=== PATIENT | male | born 1980 | race Two or more races ===

== ENCOUNTER 2017-02-27 10:45 | Inpatient (IN) | payer OTHER ==
[2017-02-27 13:44] VITALS: BMI 23.3
--- NOTE | 2017-02-27 14:37 | HP ---
COWS - Scale Resting Pulse: 0= MS 80 or Below Sweatin= Chills/Flushing Restless Observation: 1= Difficult to Sit Still Pupil Size: 0= Normal to Room Light Bone or Joint Aches: 2= Severe Diffuse Aches Runny Nose/ Eye Tearin= Nasal Congestion GI Upset > 30mins: 3= Vomiting/Diarrhea Tremor Observation: 0= None Yawning Observation: 2= >3x During Session Anxiety or Irritability: 2=Irritable/Anxious Goose Flesh Skin: 3=Piloerection COWS Score: 15 Admission ROS S - HPI Chief Complaint: "I want to change my life and be a normal person." Pt. is here to Detox from Heroin. Allergies/Adverse Reactions: Allergies Allergy/AdvReac Type Severity Reaction Status Date / Time Fish Containing Products Allergy Severe Hives Verified 02/27/17 14:02 NKDA Allergy Uncoded 02/27/17 14:02 History of Present Illness: Pt. is a 37 YO male here to Detox from Heroin. Patient has had several previous Detox admissions at [facility], last one 09/2015. Patient had a Detox admission at [facility]) in 09/2016. Longest recent period of non-drug use: approx. 2 years (2013 - 2014). Exam Limitations: No Limitations - Ebola screening Have you traveled outside of the country in the last 21 days: No Have you had contact with anyone from an Ebola affected area: No Have you been sick,other than usual withdrawal symptoms: No Do you have a fever: No - Review of Systems Constitutional: Chills, Diaphoresis, Fever, Loss of Appetite, Malaise, Night Sweats, Changes in sleep, Unintentional Wgt. Loss (Lost approx. 22 lbs. over the last 2 months.) EENT: reports: Nose Congestion, Sinus Pressure Respiratory: reports: No Symptoms reported Cardiac: reports: Palpitations GI: reports: Constipated, Nausea, Poor Appetite, Vomiting, Indigestion, Abdominal cramping Musculoskeletal: reports: No Symptoms Reported Integumentary: reports: No Symptoms Reported Neuro: reports: No Symptoms reported Endocrine: reports: No Symptoms Reported Hematology: reports: No Symptoms Reported Psychiatric: reports: Judgement Intact, Mood/Affect Appropiate, Orientated x3, Anxious, Depressed Other Systems: Reviewed and Negative Patient History - Patient Medical History Hx Anemia: No Hx Asthma: No Hx Chronic Obstructive Pulmonary Disease (COPD): No Hx Cancer: No Hx Cardiac Disorders: No Hx Congestive Heart Failure: No Hx Hypertension: No Hx Hypercholesterolemia: No Hx Pacemaker: No HX Cerebrovascular Accident: No Hx Seizures: No Hx Dementia: No Hx Diabetes: No Hx Gastrointestinal Disorders: No Hx Liver Disease: Yes (Hep C; Diagnosed 2008; No Treatment yet.) Hx Genitourinary Disorders: No Hx Sexually Transmitted Disorders: No Hx Renal Disease (ESRD): No Hx Thyroid Disease: No Hx Human Immunodeficiency Virus (HIV): No (Last Tested approx. 2 months ago: NEGATIVE.) Hx Hepatitis C: Yes (Diagnosed 2008; No Treatment yet.) Hx Depression: Yes (No treatment.) Hx Suicide Attempt: No (PATIENT DENIES CURRENT SI / HI.) Hx Bipolar Disorder: No Hx Schizophrenia: No Other Medical History: DENIES. - Patient Surgical History Past Surgical History: No Hx Neurologic Surgery: No Hx Cataract Extraction: No Hx Cardiac Surgery: No Hx Lung Surgery: No Hx Breast Surgery: No Hx Breast Biopsy: No Hx Abdominal Surgery: No Hx Appendectomy: No Hx Cholecystectomy: No Hx Genitourinary Surgery: No Hx Section: No Hx Orthopedic Surgery: No Anesthesia Reaction: Yes - PPD History Previous Implant?: Yes Documented Results: Negative w/proof Implanted On Prior [facility] Admission?: Yes Date: 09/30/15 Results: 0 mm PPD to be Administered?: Yes - Reproductive History Patient is a Female of Child Bearing Age (11 -55 yrs old): No (PATIENT IS MALE.) - Smoking Cessation Smoking history: Current every day smoker Have you smoked in the past 12 months: Yes Aproximately how many cigarettes per day: 5 Cigars Per Day: 0 Hx Chewing Tobacco Use: No Initiated information on smoking cessation: Yes 'Breaking Loose' booklet given: 02/27/17 (GIVEN ON UNIT.) - Substance & Tx. History Hx Alcohol Use: No Hx Substance Use: Yes Substance Use Type: Cocaine, Heroin Hx Substance Use Treatment: Yes (Previous Detox admissions at [facility]. Detox at [facility] ([place], [place]) 10/2016.) - Substances Abused Heroin Route: Injection Frequency: Daily Amount used: 8 bags Age of first use: 15 Date of Last Use: 02/27/17 Cocaine Route: Injection Frequency: Daily Amount used: $100 Age of first use: 15 Date of Last Use: 02/27/17 Family Disease History - Family Disease History Family History: Denies Admission Physical Exam [facility] - Vital Signs Vital Signs: Vital Signs - 24 hr 02/27/17 13:43 Temperature 96.2 F L Pulse Rate 73 Respiratory 20 Rate Blood Pressure 147/91 - Physical General Appearance: Yes: No Apparent Distress, Nourished, Appropriately Dressed HEENTM: Yes: Hearing grossly Normal, Normocephalic, Normal Voice, ANTHONY, Pharynx Normal Respiratory: Yes: Chest Non-Tender, Lungs Clear, No Respiratory Distress, No Accessory Muscle Use Neck: Yes: No masses,lesions,Nodules, Supple, Trachea in good position Breast: Yes: Breast Exam Deferred Cardiology: Yes: Regular Rhythm, Regular Rate, S1, S2 Abdominal: Yes: Normal Bowel Sounds, Non Tender, Flat, Soft Genitourinary: Yes: Within Normal Limits Back: Yes: Normal Inspection Musculoskeletal: Yes: full range of Motion, Gait Steady Extremities: Yes: Normal Range of Motion Neurological: Yes: Fully Oriented, Alert, Normal Mood/Affect, Normal Response Integumentary: Yes: Normal Color, Dry, Warm, Track [place] (Noted on Bilateral Forearms and Right Hand; Swelling noted at sites on Right forearm and Hand.) Lymphatic: Yes: Within Normal Limits - Diagnostic (1) Hepatitis C Current Visit: Yes Status: Chronic Qualifiers: Viral hepatitis chronicity: unspecified Hepatic coma status: without hepatic coma Qualified Code(s): B19.20 - Unspecified viral hepatitis C without hepatic coma; B19.20 - Unspecified viral hepatitis C without hepatic coma (2) Nicotine dependence Current Visit: Yes Status: Chronic Qualifiers: Nicotine product type: cigarettes Substance use status: uncomplicated Qualified Code(s): F17.210 - Nicotine dependence, cigarettes, uncomplicated; F17.210 - Nicotine dependence, cigarettes, uncomplicated (3) Opioid dependence with withdrawal Current Visit: Yes Status: Acute (4) Abscess of right upper extremity Current Visit: Yes Status: Acute (5) Cocaine dependence, uncomplicated Current Visit: Yes Status: Acute Cleared for Admission [facility] - Detox or Rehab [facility] Level of Care: Medically Managed Detox Regimen/Protocol: Methadone [facility] Breath Alcohol Content Breath Alcohol Content: 0 Urine Drug Screen - Results Drug Screen Negative: No Urine Drug Screen Results: CECY-Cocaine, OPI-Opiates
[2017-02-27] MEDS ORDERED: ACETAMINOPHEN 325 MG TABLET (FP) PO PRN (15:11)
[2017-02-27] MEDS ORDERED: guaiFENesin/D-METHORPHAN HB 10 ML UNIT-DOSE CUPS PO PRN (15:11)
[2017-02-27] MEDS ORDERED: LOPERAMIDE HCL 2 MG CAPSULE PO PRN (15:11)
[2017-02-27] MEDS ORDERED: MAGNESIUM HYDROX 2400MG/30ML ORAL SUSPENSION 30 ML CUP PO PRN (15:11)
[2017-02-27] MEDS ORDERED: MAG HYDROX/AL HYDROX/SIMETH 30 ML UNIT-DOSE CUP PO PRN (15:11)
[2017-02-27] MEDS ORDERED: P-EPHED 60MG/TRIPROLIDI 2.5MG TABLET PO PRN (15:11)
[2017-02-27] MEDS ORDERED: hydrOXYzine PAMOATE 50 MG CAPSULE (FP) PO PRN (15:11)
[2017-02-27] MEDS ORDERED: METHADONE HCL 10 MG TABLET (FOR DETOX USE ONLY) PO ONE ×2 (15:11→23:00)
[2017-02-27] MEDS ORDERED: NICOTINE POLACRILEX 2 MG GUM BC PRN (15:11)
[2017-02-27] MEDS ORDERED: IBUPROFEN 400 MG TABLET (FP) PO PRN (15:11)
[2017-02-27] MEDS ORDERED: MAGNESIUM CITRATE 300 ML BOTTLE PO PRN (15:11)
[2017-02-27 16:51] LABS: MCH 29.6 pg (25.7-33.7); MCHC 33.9 g/dl (32.0-35.9); MEAN CELL VOLUME 87.2 fl (80-96); MEAN PLT VOLUME 7.8 fl (7.5-11.1); PLATELET COUNT 276 K/MM3 (134-434)
[2017-02-27 17:00] LABS: ALBUMIN 3.2 g/dl (3.4-5.0); ANION GAP 9 (8-16); CALCIUM 8.4 mg/dL (8.5-10.1); CO2 29 mmol/L (21-32); CREATININE 0.6 mg/dL (0.7-1.3); GLUCOSE,RANDOM 84 mg/dL (74-106); SGOT/AST 46 U/L (15-37); SGPT/ALT 42 U/L (12-78)
[2017-02-27 17:03] LABS: ALK PHOS 114 U/L (45-117); BILIRUBIN,TOTAL 0.5 mg/dL (0.2-1.0); TOT PROT 7.6 g/dl (6.4-8.2)
[2017-02-27] MEDS ORDERED: METHADONE HCL 10 MG TABLET (FOR DETOX USE ONLY) ONE (17:34)
[2017-02-27] MEDS: diazePAM 5 MG TABLET PO PRN ×2 (17:45→22:19)
[2017-02-27] MEDS: NICOTINE 14 MG/24 HOURS TOPICAL PATCH TD SCH (17:49)
[2017-02-27 21:01] LABS: URINE APPEARANCE CLEAR; URINE BILIRUBIN NEGATIVE (NEGATIVE); URINE BLOOD NEGATIVE (NEGATIVE); URINE COLOR YELLOW; URINE GLUCOSE (UA) NEGATIVE (NEGATIVE); URINE KETONE NEGATIVE (NEGATIVE); URINE LEUK ESTERASE NEGATIVE (NEGATIVE); URINE NITRITE NEGATIVE (NEGATIVE); URINE PROTEIN NEGATIVE (NEGATIVE); URINE UROBILINOGEN NEGATIVE mg/dL (0.2-1.0)
[2017-02-27] MEDS: SULFAMETHOXAZOLE/TRIMETHOPRIM 800MG/160MG D.S. TABLET PO SCH (22:20)
[2017-02-27] MEDS: BACITRACIN 0.9 GM PACKET TP SCH (22:20)
[2017-02-27] MEDS: THIAMINE HCL 100 MG TABLET (FP) PO SCH (22:20)
[2017-02-27] MEDS: diphenhydrAMINE HCL 50 MG CAPSULE PO PRN (22:20)
[2017-02-28] MEDS: diazePAM 5 MG TABLET PO PRN ×4 (05:50→22:15)
[2017-02-28] MEDS: SULFAMETHOXAZOLE/TRIMETHOPRIM 800MG/160MG D.S. TABLET PO SCH ×2 (09:23→22:14)
[2017-02-28] MEDS: BACITRACIN 0.9 GM PACKET TP SCH ×2 (09:23→22:14)
[2017-02-28] MEDS: NICOTINE 14 MG/24 HOURS TOPICAL PATCH TD SCH (09:24)
[2017-02-28] MEDS ORDERED: METHADONE HCL 10 MG TABLET (FOR DETOX USE ONLY) PO ONE (10:00)
[2017-02-28] MEDS ORDERED: PRENATAL VITAMINS W/ FOLIC ACID TABLET (FP) PO SCH (10:00)
[2017-02-28] MEDS ORDERED: FLU VACCINE QUAD 60 MCG/0.5 ML (MDV 17-18) IM ONE (12:00)
--- NOTE | 2017-02-28 12:03 | PN ---
[facility] CIWA - CIWA Score Nausea/Vomitin-No Nausea/No Vomiting Muscle Tremors: None Anxiety: 3 Agitation: 2 Paroxysmal Sweats: 4-Forehead w/Sweat Beads Orientation: 0-Oriented Tacttile Disturbances: 2-Mild Itch/Numbness/Burn Auditory Disturbances: 2-Mild Harshness/Frighten Visual Disturbances: 3-Moderate Sensitivity Headache: 0-None Present CIWA-Ar Total Score: 16 BHS Progress Note (SOAP) Subjective: Interrupted sleep, Stomach Cramping, Body Aches, Sweating. Objective: PT. A & O X 3, OBSERVED AMBULATING ON UNIT. NO ACUTE DISTRESS. PT. DENIES CHEST PAIN. 02/28/17 12:02 Vital Signs Temperature 97.6 F 02/28/17 09:18 Pulse Rate 102 H 02/28/17 09:18 Respiratory Rate 20 02/28/17 09:18 Blood Pressure 135/86 02/28/17 09:18 O2 Sat by Pulse Oximetry (%) Laboratory Tests 02/27/17 02/27/17 02/27/17 15:00 15:00 15:00 WBC 5.0 RBC 4.38 Hgb 12.9 Hct 38.1 MCV 87.2 MCH 29.6 MCHC 33.9 RDW 13.0 Plt Count 276 MPV 7.8 Sodium 135 L Potassium 4.2 Chloride 97 L Carbon Dioxide 29 Anion Gap 9 BUN 12 D Creatinine 0.6 L D Creat Clearance w eGFR > 60 Random Glucose 84 D Calcium 8.4 L Total Bilirubin 0.5 D AST 46 H D ALT 42 D Alkaline Phosphatase 114 D Total Protein 7.6 Albumin 3.2 L Urine Color Urine Appearance Urine pH Ur Specific [place] Urine Protein Urine Glucose (UA) Urine Ketones Urine Blood Urine Nitrite Urine Bilirubin Urine Urobilinogen RPR Titer Nonreactive 02/27/17 18:38 WBC RBC Hgb Hct MCV MCH MCHC RDW Plt Count MPV Sodium Potassium Chloride Carbon Dioxide Anion Gap BUN Creatinine Creat Clearance w eGFR Random Glucose Calcium Total Bilirubin AST ALT Alkaline Phosphatase Total Protein Albumin Urine Color Yellow Urine Appearance Clear Urine pH 5.0 Ur Specific [place] 1.025 Urine Protein Negative Urine Glucose (UA) Negative Urine Ketones Negative Urine Blood Negative Urine Nitrite Negative Urine Bilirubin Negative Urine Urobilinogen Negative RPR Titer LABS NOTED. Assessment: 02/28/17 12:02 WITHDRAWAL SYMPTOMS. Plan: CONTINUE DETOX. INCREASE DAILY PO FLUID INTAKE.
--- NOTE | 2017-02-28 14:24 | EKG ---
Test Reason : Blood Pressure : / mmHG Vent. Rate : 068 BPM Atrial Rate : 068 BPM P-R Int : 148 ms QRS Dur : 084 ms QT Int : 380 ms P-R-T Axes : 068 023 032 degrees QTc Int : 404 ms NORMAL SINUS RHYTHM WITH SINUS ARRHYTHMIA EARLY REPOLARIZATION NORMAL ECG NO PREVIOUS ECGS AVAILABLE Confirmed by JONATHAN CHRISTIANSON, ROXY ([id number]) on 02/28/2017 2:24:07 PM Referred By: Confirmed By:ROXY CASTILLO MD
[2017-02-28] MEDS: diphenhydrAMINE HCL 50 MG CAPSULE PO PRN (22:15)
[2017-02-28] MEDS: THIAMINE HCL 100 MG TABLET (FP) PO SCH (22:15)
[2017-03-01 06:57] VITALS: BP 134/93; PULSE 70; TEMP 97.3
[2017-03-01] MEDS ORDERED: METHADONE HCL 5 MG TABLET (FOR DETOX USE ONLY) PO ONE (10:00)
--- NOTE | 2017-03-01 11:54 | DS ---
[facility] Detox Discharge Summary Admission Date: 02/27/17 Discharge Date: 03/01/17 - History Present History: Cocaine Dependence, Opioid Dependence Additional Comments: PATIENT DOES NOT WISH TO STAY TO COMPLETE DETOX REGIMEN. RISKS OF NOT COMPLETING DETOX PROTOCOL EXPLAINED TO PATIENT. PATIENT ADVISED TO GO IMMEDIATELY TO NEAREST ER SHOULD ANY INTOLERABLE DETOX SYMPTOMS DEVELOP AT ANY TIME. PATIENT LEFT UNIT IN STABLE MEDICAL CONDITION. Pertinent Past History: Hep C, Nicotine dependence, Depression, Abscess of Right Upper Extremity. - Physical Exam Results Vital Signs: Vital Signs Temperature 97.3 F L 03/01/17 06:56 Pulse Rate 70 03/01/17 06:56 Respiratory Rate 18 03/01/17 06:56 Blood Pressure 134/93 03/01/17 06:56 O2 Sat by Pulse Oximetry (%) Pertinent Admission Physical Exam Findings: WITHDRAWAL SYMPTOMS. Laboratory Tests 02/27/17 02/27/17 02/27/17 15:00 15:00 15:00 WBC 5.0 RBC 4.38 Hgb 12.9 Hct 38.1 MCV 87.2 MCH 29.6 MCHC 33.9 RDW 13.0 Plt Count 276 MPV 7.8 Sodium 135 L Potassium 4.2 Chloride 97 L Carbon Dioxide 29 Anion Gap 9 BUN 12 D Creatinine 0.6 L D Creat Clearance w eGFR > 60 Random Glucose 84 D Calcium 8.4 L Total Bilirubin 0.5 D AST 46 H D ALT 42 D Alkaline Phosphatase 114 D Total Protein 7.6 Albumin 3.2 L Urine Color Urine Appearance Urine pH Ur Specific [place] Urine Protein Urine Glucose (UA) Urine Ketones Urine Blood Urine Nitrite Urine Bilirubin Urine Urobilinogen RPR Titer Nonreactive 02/27/17 18:38 WBC RBC Hgb Hct MCV MCH MCHC RDW Plt Count MPV Sodium Potassium Chloride Carbon Dioxide Anion Gap BUN Creatinine Creat Clearance w eGFR Random Glucose Calcium Total Bilirubin AST ALT Alkaline Phosphatase Total Protein Albumin Urine Color Yellow Urine Appearance Clear Urine pH 5.0 Ur Specific [place] 1.025 Urine Protein Negative Urine Glucose (UA) Negative Urine Ketones Negative Urine Blood Negative Urine Nitrite Negative Urine Bilirubin Negative Urine Urobilinogen Negative RPR Titer LABS NOTED. - Treatment Hospital Course: Detoxed Safely - Medication Discharge Medications: Ambulatory Orders Sulfamethoxazole/Trimethoprim [Bactrim Ds -] 1 tab PO BID #20 tablet 03/01/17 - Diagnosis (1) Hepatitis C Status: Chronic Qualifiers: Viral hepatitis chronicity: chronic Hepatic coma status: without hepatic coma Qualified Code(s): B18.2 - Chronic viral hepatitis C; B18.2 - Chronic viral hepatitis C; B18.2 - Chronic viral hepatitis C; B18.2 - Chronic viral hepatitis C (2) Nicotine dependence Status: Chronic Qualifiers: Nicotine product type: cigarettes Substance use status: uncomplicated Qualified Code(s): F17.210 - Nicotine dependence, cigarettes, uncomplicated; F17.210 - Nicotine dependence, cigarettes, uncomplicated (3) Opioid dependence with withdrawal Status: Acute (4) Abscess of right upper extremity Status: Acute (5) Cocaine dependence, uncomplicated Status: Acute - AMA Did Patient Leave Against Medical Advice: Yes (PATIENT DID NOT WISH TO STAY TO COMPLETE DETOX REGIMEN.)
[2017-03-02] MEDS ORDERED: METHADONE HCL 5 MG TABLET (FOR DETOX USE ONLY) PO ONE (10:00)
[2017-03-03] MEDS ORDERED: METHADONE HCL 10 MG TABLET (FOR DETOX USE ONLY) PO ONE (10:00)
[2017-03-04] MEDS ORDERED: METHADONE HCL 5 MG TABLET (FOR DETOX USE ONLY) PO ONE (06:00)
== END 2017-03-01 09:14 | disposition left against medical advice (07) | DRG 894 ==
LOC: YASAS 10:45 → Y3N 16:56
PROVIDERS: ADMIT Internal Medicine; ATTEND Internal Medicine
PROC: HZ2ZZZZ Detoxification Services for Substance Abuse Treatment (ICD-10-PCS; principal; 2017-02-27)
DX: F11.23 Opioid dependence with withdrawal (principal); F14.20 Cocaine dependence, uncomplicated; L02.413 Cutaneous abscess of right upper limb; F17.213 Nicotine dependence, cigarettes, with withdrawal; B18.2 Chronic viral hepatitis C; Z91.013 Allergy to seafood
CPT/HCPCS: 36415; 80053; 81003; 85027; 86593; 90688; 93005; 93010

== ENCOUNTER 2018-12-17 13:59 | Inpatient (IN) | payer OTHER | END 2018-12-22 09:13 | disposition home or self-care (01) | LOC: YASAS 13:59 → Y3N 21:29 ==

== ENCOUNTER 2019-03-27 16:59 | Inpatient (IN) | payer OTHER ==
[2019-03-27 18:36] VITALS: BMI 23.2
--- NOTE | 2019-03-27 20:26 | HP ---
COWS - Scale Resting Pulse: 1= [place] 81-100 Sweatin= Chills/Flushing Restless Observation: 1= Difficult to Sit Still Pupil Size: 0= Normal to Room Light Bone or Joint Aches: 4=Acute Joint/Muscle Pain Runny Nose/ Eye Tearin= Nasal Congestion GI Upset > 30mins: 0= None Tremor Observation: 0= None Yawning Observation: 1= 1-2x During Session Anxiety or Irritability: 2=Irritable/Anxious Goose Flesh Skin: 0=Smooth Skin COWS Score: 11 CIWA Score Nausea/Vomitin-No Nausea/No Vomiting Muscle Tremors: None Anxiety: 4-Mod. Anxious/Guarded Agitation: 1-Slight > Activity Paroxysmal Sweats: 3 Orientation: 1-Uncertain about Date Tacttile Disturbances: 0-None Auditory Disturbances: 0-None Visual Disturbances: 0-None Headache: 0-None Present CIWA-Ar Total Score: 9 - Admission Criteria [facility] Guidelines: Admission for Medically Managed Detox: Requires at least one of the followin. CIWA greater than 12 2. Seizures within the past 24 hours 3. Delirium tremens within the past 24 hours 4. Hallucinations within the past 24 hours 5. Acute intervention needed for co occurring medical disorder 6. Acute intervention needed for co occurring psychiatric disorder 7. Severe withdrawal that cannot be handled at a lower level of care (continued vomiting, continued diarrhea, abnormal vital signs) requiring intravenous medication and/or fluids 8. Patient presents the following: Acute intervention needed for co-occurring med or psych disorder Admission Criteria Met: Admission criteria met Admitting History and Physical - Smoking History Smoking history: Current every day smoker Have you smoked in the past 12 months: Yes Aproximately how many cigarettes per day: 10 - Alcohol/Substance Use Hx Alcohol Use: No Admission ROS [facility] Chief Complaint: C/O WITHDRAWAL SX'S Allergies/Adverse Reactions: Allergies Allergy/AdvReac Type Severity Reaction Status Date / Time Fish Containing Products Allergy Severe Hives Verified 03/27/19 17:53 NKDA Allergy Uncoded 12/17/18 17:48 History of Present Illness: HERE FOR DETOX. LAST ADMISSION 11/2018. SELF REFERRED. PRESENTS WITH C/O WORSENING WITHDRAWAL SX'S AND IS SEEKING DETOX FOR HIS ALCOHOL AND HEROIN DEPENDENCE. CLIENT REPORTS DAILY USE OF BOTH SUBSTANCES. LAST USED EARLY THIS MORNING. + EYE SECURITY COORDINATOR, IVDU. UTOX ALSO + FOR CECY. HE IS ALSO SEEKING USP REHAB AFTER DETOX. DENIES DRUG OVERDOSE, SEIZURE, BLACK OUTS, AVH. LIVES WITH FAMILY, DISABILITY, DENIES LEGALS Exam Limitations: No Limitations - Ebola screening Have you traveled outside of the country in the last 21 days: No (N) Have you had contact with anyone from an Ebola affected area: No Do you have a fever: No - Review of Systems Constitutional: Chills, Loss of Appetite, Malaise, Night Sweats, Changes in sleep EENT: reports: Nose Congestion Respiratory: reports: No Symptoms reported Cardiac: reports: No Symptoms Reported GI: reports: Poor Appetite, Poor Fluid Intake : reports: No Symptoms Reported Musculoskeletal: reports: No Symptoms Reported Integumentary: reports: Sweating Neuro: reports: No Symptoms reported Endocrine: reports: No Symptoms Reported Hematology: reports: No Symptoms Reported Psychiatric: reports: Agitated (IRRITBALE), Anxious Other Systems: Reviewed and Negative Patient History - Patient Medical History Hx Anemia: No Hx Asthma: No Hx Chronic Obstructive Pulmonary Disease (COPD): No Hx Cancer: No Hx Cardiac Disorders: No Hx Congestive Heart Failure: No Hx Hypertension: No Hx Hypercholesterolemia: No Hx Pacemaker: No HX Cerebrovascular Accident: No Hx Seizures: No Hx Dementia: No Hx Diabetes: No Hx Gastrointestinal Disorders: No Hx Liver Disease: Yes (Hep C; Diagnosed 2008; No Treatment yet.) Hx Genitourinary Disorders: No Hx Sexually Transmitted Disorders: No Hx Renal Disease (ESRD): No Hx Thyroid Disease: No Hx Human Immunodeficiency Virus (HIV): No Hx Hepatitis C: Yes (Diagnosed 2008; No Treatment yet.) Hx Depression: Yes (No treatment.) Hx Suicide Attempt: No (PATIENT DENIES CURRENT SI / HI.) Hx Bipolar Disorder: Yes Hx Schizophrenia: No Other Medical History: DENIES - Patient Surgical History Past Surgical History: No Hx Neurologic Surgery: No Hx Cataract Extraction: No Hx Cardiac Surgery: No Hx Lung Surgery: No Hx Breast Surgery: No Hx Breast Biopsy: No Hx Abdominal Surgery: No Hx Appendectomy: No Hx Cholecystectomy: No Hx Genitourinary Surgery: No Hx Section: No Hx Orthopedic Surgery: No Anesthesia Reaction: No - PPD History Previous Implant?: Yes Documented Results: Negative w/proof Implanted On Prior [facility] Admission?: Yes Date: 12/18/18 Results: NEG TB GOLD PPD to be Administered?: No - Smoking Cessation Smoking history: Current every day smoker Have you smoked in the past 12 months: Yes Aproximately how many cigarettes per day: 10 Cigars Per Day: 0 Hx Chewing Tobacco Use: No Initiated information on smoking cessation: Yes 'Breaking Loose' booklet given: 03/27/19 - Substance & Tx. History Hx Alcohol Use: Yes Hx Substance Use: Yes Substance Use Type: Alcohol, Cocaine, Heroin Hx Substance Use Treatment: Yes ([facility]) - Substances abused Heroin Substance route: Injection Frequency: Daily Amount used: 12 bags Age of first use: 15 Date of last use: 03/27/19 Cocaine Substance route: Injection Frequency: Daily Amount used: 12 bags Age of first use: 15 Date of last use: 03/27/19 K2/Spice Substance route: Smoking Frequency: Daily Amount used: 1 stick Age of first use: 38 Date of last use: 12/17/18 Alcohol Substance route: Oral Frequency: Daily Amount used: 2 CANS OF BEER AND 2 SHOTS OF VODKA Age of first use: 15 Date of last use: 03/27/19 Admission Physical Exam [facility] - Vital Signs Vital Signs: Vital Signs - 24 hr 03/27/19 17:58 Temperature 97.5 F L Pulse Rate 91 H Respiratory 16 Rate Blood Pressure 157/98 - Physical General Appearance: Yes: Mild Distress, Irritable, Sweating, Anxious HEENTM: Yes: EOMI, Normocephalic, Normal Voice, ANTHONY, Pharynx Normal, Nasal Congestion Respiratory: Yes: Chest Non-Tender, Lungs Clear, Normal Breath Sounds, No Respiratory Distress, No Accessory Muscle Use Neck: Yes: No masses,lesions,Nodules, Supple, Trachea in good position, Other ( TRACK WARE) Breast: Yes: Breasts Symetrical Cardiology: Yes: Regular Rhythm, Regular Rate, S1, S2 Abdominal: Yes: Non Tender, Soft, Increased Bowel Sounds Genitourinary: Yes: Within Normal Limits Back: Yes: Normal Inspection Musculoskeletal: Yes: full range of Motion, Gait Steady Extremities: Yes: Normal Capillary Refill, Normal Range of Motion, Non-Tender Neurological: Yes: Alert, Motor Strength 5/5, Depressed Affect Integumentary: Yes: Warm, Moist, Other (SOILED FINGERNAIL BEDS) Lymphatic: Yes: Within Normal Limits - Diagnostic (1) Opioid dependence with withdrawal Current Visit: No Status: Acute (2) Cocaine dependence, uncomplicated Current Visit: No Status: Chronic (3) Hepatitis C Current Visit: No Status: Chronic Qualifiers: Viral hepatitis chronicity: chronic Hepatic coma status: without hepatic coma Qualified Code(s): B18.2 - Chronic viral hepatitis C (4) History of bipolar disorder Current Visit: No Status: Chronic (5) Insomnia Current Visit: No Status: Chronic (6) Nicotine dependence Current Visit: No Status: Chronic Qualifiers: Nicotine product type: cigarettes Substance use status: uncomplicated Qualified Code(s): F17.210 - Nicotine dependence, cigarettes, uncomplicated (7) Substance induced mood disorder Current Visit: No Status: Suspected (8) At risk for dehydration due to poor fluid intake Current Visit: Yes Status: Acute (9) Constipation Current Visit: Yes Status: Acute Qualifiers: Constipation type: drug induced constipation Qualified Code(s): K59.03 - Drug induced constipation (10) IVDU (intravenous drug user) Current Visit: Yes Status: Acute (11) Track ware due to intravenous drug abuse Current Visit: Yes Status: Acute Cleared for Admission [facility] - Detox or Rehab [facility] Level of Care: Medically Managed Detox Regimen/Protocol: Methadone/Librium Claeared for Rehab Admission: No Breathalyzer - Breathalyzer Breathalyzer: 0 Urine Drug Screen - Test Device Lot number: [id number] Expiration date: 11/23/20 - Control Is test valid?: Yes - Results Drug screen NEGATIVE: No Urine drug screen results: CECY-Cocaine, FEN-Fentanyl, MOP-Opiates, OXY-Oxycodone Inpatient Rehab Admission - Rehab Decision to Admit Inpatient rehab admission?: No
[2019-03-27] MEDS ORDERED: DICYCLOMINE HCL 10 MG CAPSULE PO PRN (20:32)
[2019-03-27] MEDS ORDERED: BISMUTH SUBSALICYLATE 524 MG/30 ML UD PO PRN (20:32)
[2019-03-27] MEDS ORDERED: ACETAMINOPHEN 325 MG TABLET (FP) PO PRN ×2 (20:32)
[2019-03-27] MEDS ORDERED: NALOXONE HCL 0.4 MG/ML VIAL IM PRN (20:32)
[2019-03-27] MEDS ORDERED: MENTHOL/PHENOL 1 EACH UD MM PRN (20:32)
[2019-03-27] MEDS ORDERED: hydrOXYzine PAMOATE 25 MG CAPSULE (FP) PO PRN (20:32)
[2019-03-27] MEDS ORDERED: IBUPROFEN 400 MG TABLET (FP) PO PRN (20:32)
[2019-03-27] MEDS ORDERED: MAG HYDROX/AL HYDROX/SIMETH 30 ML UNIT-DOSE CUP PO PRN (20:32)
[2019-03-27] MEDS ORDERED: P-EPHED 60MG/TRIPROLIDI 2.5MG TABLET PO PRN (20:32)
[2019-03-27] MEDS ORDERED: MAGNESIUM HYDROX 2400MG/30ML ORAL SUSPENSION 30 ML CUP PO PRN (20:32)
[2019-03-27] MEDS ORDERED: ONDANSETRON *ODT* 4 MG TABLET SL PRN (20:32)
[2019-03-27] MEDS ORDERED: cloNIDine HCL 0.1 MG TABLET PO PRN (20:32)
[2019-03-27] MEDS ORDERED: MELATONIN 5 MG TABLETS PO PRN (20:32)
[2019-03-27] MEDS ORDERED: MAGNESIUM CITRATE 300 ML BOTTLE PO PRN (20:32)
[2019-03-27] MEDS ORDERED: METHOCARBAMOL 500 MG TABLET PO PRN (20:32)
[2019-03-27] MEDS ORDERED: NICOTINE POLACRILEX 2 MG GUM BUC PRN (20:32)
[2019-03-27] MEDS ORDERED: guaiFENesin 200 MG/10 ML 10 ML UNIT-DOSE CUPS PO PRN (20:32)
[2019-03-27] MEDS ORDERED: chlordiazePOXIDE HCL 10 MG CAPSULE PO PRN (20:32)
[2019-03-27] MEDS ORDERED: METHADONE HCL 10 MG TABLET (FOR DETOX USE ONLY) PO ONE (21:00)
[2019-03-27] MEDS: chlordiazePOXIDE HCL 25 MG CAPSULE PO SCH (22:16)
[2019-03-27] MEDS: THIAMINE HCL 100 MG TABLET (FP) PO SCH (22:16)
[2019-03-27] MEDS: DOCUSATE SODIUM 100 MG CAPSULE (FP) PO SCH (22:17)
[2019-03-28] MEDS: chlordiazePOXIDE HCL 25 MG CAPSULE PO SCH ×3 (05:25→22:45)
[2019-03-28 09:49] LABS: HEMATOCRIT 34.6 % (35.4-49); HEMOGLOBIN 11.6 GM/dL (11.7-16.9); MCHC 33.4 g/dl (32.0-35.9); MEAN CELL VOLUME 86.7 fl (80-96); MEAN PLT VOLUME 7.6 fl (7.5-11.1); PLATELET COUNT 223 K/MM3 (134-434); RBC 3.99 M/mm3 (4.00-5.60); RDW 13.4 % (11.9-15.9); WHITE BLOOD COUNT 3.8 K/mm3 (4.0-10.0)
[2019-03-28] MEDS ORDERED: METHADONE HCL 10 MG TABLET (FOR DETOX USE ONLY) PO ONE (10:00)
[2019-03-28 10:30] LABS: ALBUMIN 2.8 g/dl (3.4-5.0); BILIRUBIN,TOTAL 0.2 mg/dL (0.2-1); BLOOD UREA NITROGEN 15.7 mg/dL (7-18); CALCIUM 8.3 mg/dL (8.5-10.1); CREATININE 0.8 mg/dL (0.55-1.3); POTASSIUM 4.3 mmol/L (3.5-5.1); TOT PROT 6.8 g/dl (6.4-8.2)
[2019-03-28] MEDS: PRENATAL VITAMINS W/ FOLIC ACID TABLET (FP) PO SCH (10:34)
[2019-03-28] MEDS: NICOTINE 21 MG/24 HOURS TOPICAL PATCH TD SCH (10:35)
--- NOTE | 2019-03-28 10:41 | PN ---
[facility] CIWA - CIWA Score Nausea/Vomitin-No Nausea/No Vomiting Muscle Tremors: None Anxiety: 3 Agitation: 1-Slight > Activity Paroxysmal Sweats: 3 Orientation: 0-Oriented Tacttile Disturbances: 0-None Auditory Disturbances: 0-None Visual Disturbances: 0-None Headache: 2-Mild CIWA-Ar Total Score: 9 BHS COWS - Scale Resting Pulse: 0= [place] 80 or Below Sweatin= Chills/Flushing Restless Observation: 1= Difficult to Sit Still Pupil Size: 0= Normal to Room Light Bone or Joint Aches: 2= Severe Diffuse Aches Runny Nose/ Eye Tearin= None GI Upset > 30mins: 0= None Tremor Observation of Outstretched Hands: 2= Slight Tremor Visible Yawning Observation: 1= 1-2x During Session Anxiety or Irritability: 2=Irritable/Anxious Goose Flesh Skin: 0=Smooth Skin COWS Score: 9 S Progress Note (SOAP) Subjective: c/o muscle aches, sweats, headache, and anxiety. Objective: 03/28/19 10:40 Vital Signs 03/28/19 03/28/19 03/28/19 03:30 06:06 09:10 Temperature 98.4 F 73 F L Pulse Rate 69 123 H Respiratory 18 18 18 Rate Blood Pressure 125/68 125/68 Lab Results WBC 3.8 K/mm3 (4.0-10.0) L 03/28/19 07:45 RBC 3.99 M/mm3 (4.00-5.60) L 03/28/19 07:45 Hgb 11.6 GM/dL (11.7-16.9) L 03/28/19 07:45 Hct 34.6 % (35.4-49) L 03/28/19 07:45 MCV 86.7 fl (80-96) 03/28/19 07:45 MCHC 33.4 g/dl (32.0-35.9) 03/28/19 07:45 RDW 13.4 % (11.9-15.9) 03/28/19 07:45 Plt Count 223 K/MM3 (134-434) 03/28/19 07:45 Sodium 137 mmol/L (136-145) 03/28/19 07:45 Potassium 4.3 mmol/L (3.5-5.1) 03/28/19 07:45 Chloride 103 mmol/L (98-107) 03/28/19 07:45 Carbon Dioxide 29 mmol/L (21-32) 03/28/19 07:45 Anion Gap 4 MMOL/L (8-16) L 03/28/19 07:45 BUN 15.7 mg/dL (7-18) 03/28/19 07:45 Creatinine 0.8 mg/dL (0.55-1.3) 03/28/19 07:45 Random Glucose 103 mg/dL (74-106) 03/28/19 07:45 Calcium 8.3 mg/dL (8.5-10.1) L 03/28/19 07:45 Labs noted. Assessment: 03/28/19 10:41 AOX3, in no acute respiratory distress. Full ROM, ambulating in the unit. Withdrawal symptoms. Plan: continue detox.
--- NOTE | 2019-03-28 11:33 | CONSULT ---
[facility] Psychiatric Consult - Data Date of interview: 03/28/19 Admission source: [facility] Identifying data: This is one of multiple admissions to [facility] for this 39 y/ o male self-referred for detoxification (alcohol, heroin, cannabis/K2, cocaine, nicotine). Interviewed at [address] [place] [address]. Patient is single, no children, domiciled, unemployed and supported on SSI benefits. Substance Abuse History: Discussed with the patient. See details in current [facility] report as follows : Smoking history: Current every day smoker. Have you smoked in the past 12 months: Yes. Aproximately how many cigarettes per day: 10. Cigars Per Day: 0. Hx Chewing Tobacco Use: No. Initiated information on smoking cessation: Yes. 'Breaking Loose' booklet given: 03/27/19. - Substance & Tx. History. Hx Alcohol Use: Yes. Hx Substance Use: Yes. Substance Use Type : Alcohol, Cocaine, Heroin. Hx Substance Use Treatment: Yes ([facility]). - Substances abused. Heroin. Substance route: Injection. Frequency: Daily. Amount used: 12 bags. Age of first use: 15. Date of last use: 03/27/19. Cocaine. Substance route: Injection. Frequency: Daily. Amount used: 12 bags. Age of first use: 15. Date of last use: 03/27/19. K2/Spice. Substance route: Smoking. Frequency: Daily. Amount used: 1 stick. Age of first use: 38. Date of last use: 12/17/18. Alcohol. Substance route: Oral. Frequency : Daily. Amount used: 2 CANS OF BEER AND 2 SHOTS OF VODKA. Age of first use: 15. Date of last use: 03/27/19 Medical History: Remarkable for hepatitis C (not treated). Psychiatric History: History of multiple psychiatric psychiatric hospitalizations ([facility], [facility]). Patient is diagnosed with Bipolar Disorder. Mr Cain continues to see Dr Guidry, at the [facility] in the [place], for medication management (seroquel 100 mg/am + 200 mg/hs (refills on 12/04/18 at [facility]). History of one suicide attempt via overdose with medications (two years ago). Physical/Sexual Abuse/Trauma History: Patient denies. Additional Comment: Urine drug screen results: CECY-Cocaine, FEN-Fentanyl, MOP- Opiates, OXY-Oxycodone. Noted. Mental Status Exam - Mental Status Exam Alert and Oriented to: Time, Place, Person Cognitive Function: Good Patient Appearance: Unkempt, Disheveled (malodorous) Mood: Nervous, Withdrawn Affect: Mood Congruent, Constricted Patient Behavior: Fatigued, Cooperative Speech Pattern: Clear Voice Loudness: Normal Thought Process: Goal Oriented Thought Disorder: Not Present Hallucinations: Denies Suicidal Ideation: Denies Homicidal Ideation: Denies Insight/Judgement: Poor Sleep: Poorly, Difficulty falling asleep Appetite: Good Muscle strength/Tone: Normal Gait/Station: Normal Psychiatric Findings - Problem List ([place] 1, 2,3) (1) Opioid dependence with withdrawal Current Visit: Yes Status: Acute (2) Alcohol use disorder Current Visit: Yes Status: Chronic (3) Cocaine dependence, uncomplicated Current Visit: Yes Status: Chronic (4) Nicotine dependence Current Visit: Yes Status: Chronic Qualifiers: Nicotine product type: cigarettes Substance use status: uncomplicated Qualified Code(s): F17.210 - Nicotine dependence, cigarettes, uncomplicated (5) Substance induced mood disorder Current Visit: Yes Status: Chronic (6) History of bipolar disorder Current Visit: Yes Status: Chronic (7) Insomnia Current Visit: Yes Status: Chronic (8) Non-compliance Current Visit: Yes Status: Chronic - Initial Treatment Plan Initial Treatment Plan: Psychoeducation. Sleep hygiene. Detoxification. Medications : seroquel 200 mg po hs. Side effects/benefits discussed with patient. Mr Barlow is in agreement with this plan of care. Gave verbal consent to MD. Helm.
[2019-03-28] MEDS ORDERED: QUEtiapine FUMARATE 200 MG TABLET PO SCH (22:00)
[2019-03-28] MEDS: THIAMINE HCL 100 MG TABLET (FP) PO SCH (22:45)
[2019-03-28] MEDS: DOCUSATE SODIUM 100 MG CAPSULE (FP) PO SCH (22:45)
[2019-03-29] MEDS: chlordiazePOXIDE 5 MG CAPSULE PO SCH ×2 (06:22→12:31)
[2019-03-29] MEDS ORDERED: METHADONE HCL 10 MG TABLET (FOR DETOX USE ONLY) PO ONE (10:00)
[2019-03-29] MEDS: PRENATAL VITAMINS W/ FOLIC ACID TABLET (FP) PO SCH (10:34)
[2019-03-29] MEDS: NICOTINE 21 MG/24 HOURS TOPICAL PATCH TD SCH (10:34)
[2019-03-29] MEDS ORDERED: cloNIDine HCL 0.1 MG TABLET PO PRN (11:36)
--- NOTE | 2019-03-29 11:37 | PN ---
S CIWA - CIWA Score Nausea/Vomitin-No Nausea/No Vomiting Muscle Tremors: 2 Anxiety: 2 Agitation: 2 Paroxysmal Sweats: No Perspiration Orientation: 0-Oriented Tacttile Disturbances: 0-None Auditory Disturbances: 0-None Visual Disturbances: 0-None Headache: 0-None Present CIWA-Ar Total Score: 6 BHS COWS - Scale Resting Pulse: 1= [place] 81-100 Sweatin= Chills/Flushing Restless Observation: 0= Sits Still Pupil Size: 0= Normal to Room Light Bone or Joint Aches: 1= Mild Discomfort Runny Nose/ Eye Tearin= None GI Upset > 30mins: 1= Stomach Cramp Tremor Observation of Outstretched Hands: 1= Tremor [place], Not Seen Yawning Observation: 0= None Anxiety or Irritability: 1=Feels Anxious/Irritable Goose Flesh Skin: 0=Smooth Skin COWS Score: 6 S Progress Note (SOAP) Subjective: 39 years old male admitted on 03/27/19 for alcohol and opiate withdrawal sx management treated with librium and methadone detox regimen patient tolerated well ambulating on hallway social with peers discuss medication assisted treatment program Objective: 03/29/19 11:35 Vital Signs Temperature 98.8 F 03/29/19 05:58 Pulse Rate 84 03/29/19 09:27 Respiratory Rate 18 03/29/19 09:27 Blood Pressure 156/94 03/29/19 09:27 O2 Sat by Pulse Oximetry (%) Laboratory Last Values WBC 3.8 K/mm3 (4.0-10.0) L 03/28/19 07:45 RBC 3.99 M/mm3 (4.00-5.60) L 03/28/19 07:45 Hgb 11.6 GM/dL (11.7-16.9) L 03/28/19 07:45 Hct 34.6 % (35.4-49) L 03/28/19 07:45 MCV 86.7 fl (80-96) 03/28/19 07:45 MCH 29.0 pg (25.7-33.7) 03/28/19 07:45 MCHC 33.4 g/dl (32.0-35.9) 03/28/19 07:45 RDW 13.4 % (11.9-15.9) 03/28/19 07:45 Plt Count 223 K/MM3 (134-434) 03/28/19 07:45 MPV 7.6 fl (7.5-11.1) 03/28/19 07:45 Sodium 137 mmol/L (136-145) 03/28/19 07:45 Potassium 4.3 mmol/L (3.5-5.1) 03/28/19 07:45 Chloride 103 mmol/L (98-107) 03/28/19 07:45 Carbon Dioxide 29 mmol/L (21-32) 03/28/19 07:45 Anion Gap 4 MMOL/L (8-16) L 03/28/19 07:45 BUN 15.7 mg/dL (7-18) 03/28/19 07:45 Creatinine 0.8 mg/dL (0.55-1.3) 03/28/19 07:45 Est GFR (CKD-EPI)AfAm 130.42 03/28/19 07:45 Est GFR (CKD-EPI)NonAf 112.53 03/28/19 07:45 Random Glucose 103 mg/dL (74-106) 03/28/19 07:45 Calcium 8.3 mg/dL (8.5-10.1) L 03/28/19 07:45 Total Bilirubin 0.2 mg/dL (0.2-1) 03/28/19 07:45 AST 39 U/L (15-37) H 03/28/19 07:45 ALT 38 U/L (13-61) 03/28/19 07:45 Alkaline Phosphatase 137 U/L (45-117) H 03/28/19 07:45 Total Protein 6.8 g/dl (6.4-8.2) 03/28/19 07:45 Albumin 2.8 g/dl (3.4-5.0) L 03/28/19 07:45 RPR Titer Nonreactive (NONREACTIVE) 03/28/19 07:45 lab noted Assessment: 03/29/19 11:37 alcohol and opiate withdrawal sx Plan: continue librium and methadone detox regimen
[2019-03-29 13:56] VITALS: BP 142/94; PULSE 75; TEMP 98.6
--- NOTE | 2019-03-29 15:57 | DS ---
[facility] Detox Discharge Summary Admission Date: 03/27/19 Discharge Date: 03/29/19 - History Present History: Alcohol Dependence, Opioid Dependence Additional Comments: 39 years old male admitted on 03/27/19 for alcohol and opiate withdrawal sx management treated with librium and methadone detox regimen insists to leave the detox unit refuse exist ciwa cows refuse exist physical examine Pertinent Past History: patient is alert oriented x 3 speech clearly coherently - Physical Exam Results Vital Signs: Vital Signs Temperature 98.6 F 03/29/19 13:55 Pulse Rate 75 03/29/19 13:55 Respiratory Rate 18 03/29/19 13:55 Blood Pressure 142/94 03/29/19 13:55 O2 Sat by Pulse Oximetry (%) Pertinent Admission Physical Exam Findings: alcohol and opiate withdrawal sx Laboratory Last Values WBC 3.8 K/mm3 (4.0-10.0) L 03/28/19 07:45 RBC 3.99 M/mm3 (4.00-5.60) L 03/28/19 07:45 Hgb 11.6 GM/dL (11.7-16.9) L 03/28/19 07:45 Hct 34.6 % (35.4-49) L 03/28/19 07:45 MCV 86.7 fl (80-96) 03/28/19 07:45 MCH 29.0 pg (25.7-33.7) 03/28/19 07:45 MCHC 33.4 g/dl (32.0-35.9) 03/28/19 07:45 RDW 13.4 % (11.9-15.9) 03/28/19 07:45 Plt Count 223 K/MM3 (134-434) 03/28/19 07:45 MPV 7.6 fl (7.5-11.1) 03/28/19 07:45 Sodium 137 mmol/L (136-145) 03/28/19 07:45 Potassium 4.3 mmol/L (3.5-5.1) 03/28/19 07:45 Chloride 103 mmol/L (98-107) 03/28/19 07:45 Carbon Dioxide 29 mmol/L (21-32) 03/28/19 07:45 Anion Gap 4 MMOL/L (8-16) L 03/28/19 07:45 BUN 15.7 mg/dL (7-18) 03/28/19 07:45 Creatinine 0.8 mg/dL (0.55-1.3) 03/28/19 07:45 Est GFR (CKD-EPI)AfAm 130.42 03/28/19 07:45 Est GFR (CKD-EPI)NonAf 112.53 03/28/19 07:45 Random Glucose 103 mg/dL (74-106) 03/28/19 07:45 Calcium 8.3 mg/dL (8.5-10.1) L 03/28/19 07:45 Total Bilirubin 0.2 mg/dL (0.2-1) 03/28/19 07:45 AST 39 U/L (15-37) H 03/28/19 07:45 ALT 38 U/L (13-61) 03/28/19 07:45 Alkaline Phosphatase 137 U/L (45-117) H 03/28/19 07:45 Total Protein 6.8 g/dl (6.4-8.2) 03/28/19 07:45 Albumin 2.8 g/dl (3.4-5.0) L 03/28/19 07:45 RPR Titer Nonreactive (NONREACTIVE) 03/28/19 07:45 lab noted - Treatment Hospital Course: Detox Protocol Followed, Responded well Patient has Accepted [facility] - Medication Discharge Medications: Ambulatory Orders NK [No Known Home Medication] 12/17/18 - Diagnosis (1) Opioid dependence with withdrawal Status: Acute (2) Alcohol use disorder Status: Chronic (3) Hepatitis C Status: Chronic Qualifiers: Viral hepatitis chronicity: chronic Hepatic coma status: without hepatic coma Qualified Code(s): B18.2 - Chronic viral hepatitis C (4) Nicotine dependence Status: Acute Qualifiers: Nicotine product type: cigarettes Substance use status: in withdrawal Qualified Code(s): F17.213 - Nicotine dependence, cigarettes, with withdrawal (5) Substance induced mood disorder Status: Suspected - AMA Did Patient Leave Against Medical Advice: Yes
[2019-03-29 16:59] LABS: URINE APPEARANCE CLEAR; URINE BILIRUBIN NEGATIVE (NEGATIVE); URINE COLOR YELLOW; URINE GLUCOSE (UA) NEGATIVE (NEGATIVE); URINE KETONE NEGATIVE (NEGATIVE); URINE LEUK ESTERASE NEGATIVE (NEGATIVE); URINE NITRITE NEGATIVE (NEGATIVE); URINE PROTEIN NEGATIVE (NEGATIVE)
[2019-03-30] MEDS ORDERED: chlordiazePOXIDE HCL 10 MG CAPSULE PO PRN
[2019-03-30] MEDS ORDERED: chlordiazePOXIDE HCL 10 MG CAPSULE PO SCH (05:00)
[2019-03-30] MEDS ORDERED: METHADONE (DETOX) 10 MG, METHADONE (DETOX) 5 MG PO ONE (10:00)
[2019-03-31] MEDS ORDERED: chlordiazePOXIDE HCL 10 MG CAPSULE PO ONE (05:00)
[2019-03-31] MEDS ORDERED: METHADONE HCL 10 MG TABLET (FOR DETOX USE ONLY) PO ONE (10:00)
[2019-04-01] MEDS ORDERED: METHADONE HCL 5 MG TABLET (FOR DETOX USE ONLY) PO ONE (06:00)
== END 2019-03-29 15:33 | disposition left against medical advice (07) | DRG 894 ==
LOC: YASAS 16:59 → Y3N 20:48
PROVIDERS: ADMIT Allergy & Immunology; ATTEND Allergy & Immunology
PROC: HZ2ZZZZ Detoxification Services for Substance Abuse Treatment (ICD-10-PCS; principal; 2019-03-27)
DX: F11.23 Opioid dependence with withdrawal (principal); F10.10 Alcohol abuse, uncomplicated; F12.20 Cannabis dependence, uncomplicated; F17.213 Nicotine dependence, cigarettes, with withdrawal; F19.24 Other psychoactive substance dependence with psychoactive substance-induced mood disorder; G47.00 Insomnia, unspecified; B18.2 Chronic viral hepatitis C; R63.8 Other symptoms and signs concerning food and fluid intake; L90.5 Scar conditions and fibrosis of skin; K59.03 Drug induced constipation; Z91.19 Patient's noncompliance with other medical treatment and regimen; Z91.013 Allergy to seafood
CPT/HCPCS: 36415; 80053; 81003; 85027; 86593

== ENCOUNTER 2019-05-08 17:52 | Inpatient (IN) | payer OTHER ==
[2019-05-08 18:12] VITALS: BMI 25.1
--- NOTE | 2019-05-08 18:41 | HP ---
COWS - Scale Resting Pulse: 2= [place] 101-120 Sweatin= Streaming Sweat Restless Observation: 5= Unable to Sit Still Pupil Size: 1= Pupils >than Normal Bone or Joint Aches: 2= Severe Diffuse Aches Runny Nose/ Eye Tearin= Runny Nose/Eyes GI Upset > 30mins: 0= None Tremor Observation: 2= Slight Tremor Visible Yawning Observation: 1= 1-2x During Session Anxiety or Irritability: 2=Irritable/Anxious Goose Flesh Skin: 0=Smooth Skin COWS Score: 21 CIWA Score Nausea/Vomitin-No Nausea/No Vomiting Muscle Tremors: 2 Anxiety: 3 Agitation: 3 Paroxysmal Sweats: 6 Orientation: 0-Oriented Tacttile Disturbances: 3-Moderate Itch/Numb/Burn Auditory Disturbances: 0-None Visual Disturbances: 0-None Headache: 2-Mild CIWA-Ar Total Score: 19 - Admission Criteria [facility] Guidelines: Admission for Medically Managed Detox: Requires at least one of the followin. CIWA greater than 12 2. Seizures within the past 24 hours 3. Delirium tremens within the past 24 hours 4. Hallucinations within the past 24 hours 5. Acute intervention needed for co occurring medical disorder 6. Acute intervention needed for co occurring psychiatric disorder 7. Severe withdrawal that cannot be handled at a lower level of care (continued vomiting, continued diarrhea, abnormal vital signs) requiring intravenous medication and/or fluids 8. Admitting History and Physical - Admission History of Present Illness: Pt is a 39 yo M with PMHx of bipolar disease, schizophrenia, anxiety, Hep C and HIV (not on treatment), bipolar presenting for detox from heroin. Pt also uses cocaine, ETOH,not on a methadone program. Started drug use at 15 years MOP- utox Heroin Injects 1 bundles 12 bags Last use today 12 noon 3 bags of dope Started 15 years Overdosed at 17years, Has narcan Has had abscesses in past, does not share needles or reuse Cocaine-utox 1 bundle of cocaine as speed ball with heroin Daily Last today 1 bag and half of cocaine Started 15 years ETOH 3 24 oz beers, and 1 pint vodka everyday Last drink today in am, 1 beer Has been drinking heavily for last 3 months No seizures, no blackouts, feels anxious when he doesn't drink MTD Gets off street not on MMTP 30-40mg weekly Last use Saturday 30mg from friend Fentanyl Laced in dope K2 5 sticks daily Last today 4pm-3 today 9 months ago Cigs 3 per day 18 years started No surgical hx Mental health: Said he used meds today, Dr Walker, [address] Seroquel 200Hs, 100am Lexapro-20mg Social Hx Deals drugs No problems with law Lives in house with Uncle and cousin Aware, of pt's drug use, and they are supportive SSD and SSI Pt has no kids Was in Shelter 2007 for 6 months (he thinks falsely) EKG in past [id number], will add order Attempted to verify meds for pt but unsuccessful as no one picked up the call Pt will get Severe methadone/Valium History Source: Patient, Medical Record Limitations to Obtaining History: Clinical Condition - Past Medical History Infectious Disease: Yes: HIV Psych: Yes: Addictions, Bipolar - Smoking History Smoking history: Current every day smoker Have you smoked in the past 12 months: Yes Aproximately how many cigarettes per day: 3 - Alcohol/Substance Use Hx Alcohol Use: Yes History of Substance Use: reports: Cocaine, Heroin - Social History Usual Living Arrangement: Yes: Other (With uncle) Do you think of yourself as: Straight/Heterosexual (reports last sexual contact after diagnosis [id number]) ADL: Independent History of Recent Travel: No Admission [facility] Allergies/Adverse Reactions: Allergies Allergy/AdvReac Type Severity Reaction Status Date / Time Fish Containing Products Allergy Severe Hives Verified 05/08/19 18:01 No Known Drug Allergies Allergy Verified 05/08/19 18:01 NKDA Allergy Uncoded 05/08/19 18:01 - Ebola screening Have you traveled outside of the country in the last 21 days: No (N) Have you had contact with anyone from an Ebola affected area: No Do you have a fever: No - Review of Systems Constitutional: Loss of Appetite, Unintentional Wgt. Loss EENT: reports: No Symptoms Reported Respiratory: reports: No Symptoms reported Cardiac: reports: No Symptoms Reported GI: reports: Constipated : reports: No Symptoms Reported Musculoskeletal: reports: Muscle Pain Integumentary: reports: Sweating Neuro: reports: No Symptoms reported Endocrine: reports: Excessive Sweating Hematology: reports: No Symptoms Reported Psychiatric: reports: Agitated Patient History - Patient Medical History Hx Anemia: No Hx Asthma: No Hx Chronic Obstructive Pulmonary Disease (COPD): No Hx Cancer: No Hx Cardiac Disorders: No Hx Congestive Heart Failure: No Hx Hypertension: No Hx Hypercholesterolemia: No Hx Pacemaker: No HX Cerebrovascular Accident: No Hx Seizures: No Hx Dementia: No Hx Diabetes: No Hx Gastrointestinal Disorders: No Hx Liver Disease: Yes (Hep C; Diagnosed 2008; No Treatment yet.) Hx Genitourinary Disorders: No Hx Sexually Transmitted Disorders: No Hx Renal Disease (ESRD): No Hx Thyroid Disease: No Hx Human Immunodeficiency Virus (HIV): Yes (2009 positive not on treatment) Hx Hepatitis C: Yes (Diagnosed 2008; No Treatment yet.) Hx Depression: Yes (No treatment.) Hx Suicide Attempt: No (PATIENT DENIES CURRENT SI / HI.) Hx Bipolar Disorder: Yes Hx Schizophrenia: No - Patient Surgical History Past Surgical History: No Hx Neurologic Surgery: No Hx Cataract Extraction: No Hx Cardiac Surgery: No Hx Lung Surgery: No Hx Breast Surgery: No Hx Breast Biopsy: No Hx Abdominal Surgery: No Hx Appendectomy: No Hx Cholecystectomy: No Hx Genitourinary Surgery: No Hx Section: No Hx Orthopedic Surgery: No Anesthesia Reaction: No - PPD History Date: 12/18/18 Results: NEG TB GOLD - Smoking Cessation Smoking history: Current every day smoker Have you smoked in the past 12 months: Yes Aproximately how many cigarettes per day: 10 Cigars Per Day: 0 Hx Chewing Tobacco Use: No Initiated information on smoking cessation: Yes 'Breaking Loose' booklet given: 05/08/19 - Substances abused Heroin Substance route: Injection Frequency: Daily Amount used: 12 bags Age of first use: 15 Date of last use: 05/08/19 Cocaine Substance route: Injection Frequency: Daily Amount used: 12 bags Age of first use: 15 Date of last use: 05/08/19 K2/Spice Substance route: Smoking Frequency: Daily Amount used: 1 stick Age of first use: 38 Date of last use: 05/08/19 Alcohol Substance route: Oral Frequency: Daily Amount used: 3 beers/ 2 pints of vodka Age of first use: 15 Date of last use: 05/08/19 Admission Physical Exam BHS - Vital Signs Vital Signs: Vital Signs - 24 hr 05/08/19 17:55 Temperature 97.7 F Pulse Rate 111 H Respiratory 22 H Rate Blood Pressure 158/98 - Physical General Appearance: Yes: Irritable, Sweating HEENTM: Yes: Within Normal Limits Respiratory: Yes: Chest Non-Tender, Lungs Clear Neck: Yes: Within Normal Limits Breast: Yes: Breast Exam Deferred Cardiology: Yes: S1, S2, Tachycardia Abdominal: Yes: Within Normal Limits Genitourinary: Yes: Within Normal Limits Back: Yes: Within Normal Limits Musculoskeletal: Yes: Back pain Extremities: Yes: Other (Tinea unguum) 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 NML intact, Motor Strength 5/5 Integumentary: Yes: Track Calderon (On UE b/l and R side of neck, no abscesses, no drainage) Lymphatic: Yes: Within Normal Limits - Diagnostic (1) Opiate withdrawal Current Visit: Yes Status: Acute Cleared for Admission [facility] - Detox or Rehab [facility] Level of Care: Medically Supervised Detox Regimen/Protocol: Methadone/Valium Claeared for Rehab Admission: No Breathalyzer - Breathalyzer Breathalyzer: 0 Urine Drug Screen - Test Device Lot number: [id number] Expiration date: 12/24/20 - Control Is test valid?: Yes - Results Drug screen NEGATIVE: No Urine drug screen results: CECY-Cocaine, FEN-Fentanyl, MOP-Opiates, MTD-Methadone Inpatient Rehab Admission - Rehab Decision to Admit Inpatient rehab admission?: No
[2019-05-08] MEDS ORDERED: MAG HYDROX/AL HYDROX/SIMETH 30 ML UNIT-DOSE CUP PO PRN (19:20)
[2019-05-08] MEDS ORDERED: hydrOXYzine PAMOATE 25 MG CAPSULE (FP) PO PRN (19:20)
[2019-05-08] MEDS ORDERED: METHOCARBAMOL 500 MG TABLET PO PRN (19:20)
[2019-05-08] MEDS ORDERED: MAGNESIUM HYDROX 2400MG/30ML ORAL SUSPENSION 30 ML CUP PO PRN (19:20)
[2019-05-08] MEDS ORDERED: BISMUTH SUBSALICYLATE 524 MG/30 ML UD PO PRN (19:20)
[2019-05-08] MEDS ORDERED: METHADONE HCL 10 MG TABLET (FOR DETOX USE ONLY) PO ONE (19:20)
[2019-05-08] MEDS ORDERED: IBUPROFEN 400 MG TABLET (FP) PO PRN (19:20)
[2019-05-08] MEDS ORDERED: ACETAMINOPHEN 325 MG TABLET (FP) PO PRN ×2 (19:20)
[2019-05-08] MEDS ORDERED: MENTHOL/PHENOL 1 EACH UD MM PRN (19:20)
[2019-05-08] MEDS ORDERED: cloNIDine HCL 0.1 MG TABLET PO PRN (19:20)
[2019-05-08] MEDS ORDERED: MELATONIN 5 MG TABLETS PO PRN (19:20)
[2019-05-08] MEDS ORDERED: MAGNESIUM CITRATE 300 ML BOTTLE PO PRN (19:20)
--- NOTE | 2019-05-08 19:29 | PN ---
Teaching Attending Note Name of Resident: Candida Kline ATTENDING PHYSICIAN STATEMENT I saw and evaluated the patient. I reviewed the resident's note and discussed the case with the resident. I agree with the resident's findings and plan as documented. SUBJECTIVE: pt here requesting detox from heroin use , reports 1 bundle/day IV in UE , neck , + OD , + abscess in the past . cocaine : 1 bundle/day IV etoh : 3 x 24 oz beer and 1 pint vodka , denies seizures / blackouts/ tremors . methadone : reports illicit use K2 : daily , latest use this afternoon . tobacco : 3 cigs/day PMHx of bipolar disease, schizophrenia, anxiety, Hep C and HIV (not on treatment ), bipolar OBJECTIVE: wnwd , moderate distress . Vital Signs - 24 hr 05/08/19 17:55 Temperature 97.7 F Pulse Rate 111 H Respiratory 22 H Rate Blood Pressure 158/98 ASSESSMENT AND PLAN: OUD - Methadone detox AUD - Valium detox .
[2019-05-08] MEDS: diazePAM 5 MG TABLET PO PRN (20:15)
[2019-05-08] MEDS: diazePAM 5 MG TABLET PO SCH (22:39)
[2019-05-08] MEDS: THIAMINE HCL 100 MG TABLET (FP) PO SCH (22:39)
[2019-05-09] MEDS: diazePAM 5 MG TABLET PO SCH ×3 (05:28→22:49)
[2019-05-09] MEDS ORDERED: METHADONE (DETOX) 20 MG, METHADONE (DETOX) 5 MG PO ONE (10:00)
[2019-05-09 10:32] LABS: HEMOGLOBIN 11.6 GM/dL (11.7-16.9); MCH 29.3 pg (25.7-33.7); MCHC 33.2 g/dl (32.0-35.9); MEAN CELL VOLUME 88.1 fl (80-96); MEAN PLT VOLUME 7.8 fl (7.5-11.1); PLATELET COUNT 246 K/MM3 (134-434); RBC 3.98 M/mm3 (4.00-5.60); RDW 13.9 % (11.9-15.9); WHITE BLOOD COUNT 5.5 K/mm3 (4.0-10.0)
[2019-05-09 10:47] LABS: ALBUMIN 3.3 g/dl (3.4-5.0); BILIRUBIN,TOTAL 0.2 mg/dL (0.2-1); CALCIUM 8.2 mg/dL (8.5-10.1); CREATININE 0.9 mg/dL (0.55-1.3); POTASSIUM 3.6 mmol/L (3.5-5.1); TOT PROT 7.7 g/dl (6.4-8.2)
--- NOTE | 2019-05-09 11:09 | CONSULT ---
[facility] Psychiatric Consult - Data Date of interview: 05/09/19 Admission source: [facility] Identifying data: Revisit to [facility] and admission to [address] [place] [address] for this 39 y/o male, self-referred for detoxification. WALI issues : alcohol, heroin, cannabis/K2, cocaine, nicotine. Patient is single, no children, domiciled, unemployed and supported on SSI benefits. Substance Abuse History: Discussed with the patient. Details in current [facility] report as indicated : Smoking history: Current every day smoker. Have you smoked in the past 12 months: Yes. Aproximately how many cigarettes per day: 10. Cigars Per Day: 0. Hx Chewing Tobacco Use: No. Initiated information on smoking cessation: Yes. 'Breaking Loose' booklet given: 05/08/19. - Substances abused. Heroin. Substance route: Injection. Frequency: Daily. Amount used: 12 bags. Age of first use: 15. Date of last use: 05/08/19. Cocaine. Substance route: Injection. Frequency: Daily. Amount used: 12 bags. Age of first use: 15. Date of last use: 05/08/19. K2/Spice. Substance route: Smoking. Frequency: Daily. Amount used: 1 stick. Age of first use: 38. Date of last use: 05/08/19. Alcohol. Substance route: Oral. Frequency : Daily. Amount used: 3 beers/ 2 pints of vodka. Age of first use: 15. Date of last use: 05/08/19 Medical History: Medical profile is remarkable for hepatitis C (not treated). Psychiatric History: History of multiple psychiatric psychiatric hospitalizations ([facility], [facility], [facility]). Patient is diagnosed with Bipolar Disorder. Mr Barlow continues to see Dr Guidry (since 2008), at the [facility] in the [place], for medication management (lexapro 20 mg/day + seroquel 100 mg/am + 200 mg/hs. History of two suicide attempts (overdose with medications). Physical/Sexual Abuse/Trauma History: Patient denies. Additional Comment: Urine drug screen results: CECY-Cocaine, FEN-Fentanyl, MOP- Opiates, MTD-Methadone. Noted. Mental Status Exam - Mental Status Exam Alert and Oriented to: Time, Place, Person Cognitive Function: Good Patient Appearance: Well Groomed Mood: Withdrawn, Hopeful Affect: Appropriate, Normal Range Patient Behavior: Fatigued, Appropriate, Cooperative Speech Pattern: Clear Voice Loudness: Normal Thought Process: Intact, Goal Oriented Thought Disorder: Not Present Hallucinations: Denies Suicidal Ideation: Denies Homicidal Ideation: Denies Insight/Judgement: Poor Sleep: Poorly, Difficulty falling asleep Appetite: Good Muscle strength/Tone: Normal Gait/Station: Normal Psychiatric Findings - Problem List ([place] 1, 2,3) (1) Opioid dependence with withdrawal Current Visit: Yes Status: Acute (2) Nicotine dependence Current Visit: Yes Status: Chronic Qualifiers: Nicotine product type: cigarettes Substance use status: in withdrawal Qualified Code(s): F17.213 - Nicotine dependence, cigarettes, with withdrawal (3) Cannabis dependence, uncomplicated Current Visit: Yes Status: Chronic (4) Cocaine dependence, uncomplicated Current Visit: Yes Status: Chronic (5) Substance induced mood disorder Current Visit: Yes Status: Suspected (6) History of bipolar disorder Current Visit: Yes Status: Chronic (7) Insomnia Current Visit: Yes Status: Chronic (8) Non-compliance Current Visit: Yes Status: Chronic - Initial Treatment Plan Initial Treatment Plan: Psychoeducation. Sleep hygiene. Detoxification. Attempt made by this property underwriter to verify patient's medications at [facility] ) : unsucessful. Phone rang, NO response. Patient is already known to this property underwriter. Will resume medications as follows : lexapro 20 mg po daily + seroquel 200 mg po hs. Side effects/benefits of both drugs are discussed with the patient. Mr Barlow is in agrement with this plan of care. Observation.
[2019-05-09] MEDS ORDERED: METHADONE HCL 10 MG TABLET (FOR DETOX USE ONLY) ONE (11:20)
[2019-05-09] MEDS ORDERED: METHADONE HCL 5 MG TABLET (FOR DETOX USE ONLY) ONE (11:20)
[2019-05-09] MEDS: PRENATAL VITAMINS W/ FOLIC ACID TABLET (FP) PO SCH (11:22)
[2019-05-09] MEDS: NICOTINE 7 MG/24 HOURS TOPICAL PATCH TD SCH (11:22)
[2019-05-09] MEDS: THIAMINE HCL 100 MG TABLET (FP) PO SCH (22:49)
[2019-05-09] MEDS: QUEtiapine FUMARATE 200 MG TABLET PO SCH (22:49)
[2019-05-10] MEDS: diazePAM 5 MG TABLET PO SCH ×2 (06:17→17:37)
[2019-05-10] MEDS ORDERED: METHADONE HCL 10 MG TABLET (FOR DETOX USE ONLY) PO ONE (10:00)
[2019-05-10] MEDS: PRENATAL VITAMINS W/ FOLIC ACID TABLET (FP) PO SCH (10:24)
[2019-05-10] MEDS: NICOTINE 7 MG/24 HOURS TOPICAL PATCH TD SCH (10:24)
--- NOTE | 2019-05-10 15:28 | PN ---
S CIWA - CIWA Score Nausea/Vomitin-Mild Nausea/No Vomiting Muscle Tremors: 3 Anxiety: 3 Agitation: 3 Paroxysmal Sweats: 3 Orientation: 0-Oriented Tacttile Disturbances: 0-None Auditory Disturbances: 0-None Visual Disturbances: 0-None Headache: 1-Very Mild CIWA-Ar Total Score: 14 BHS COWS - Scale Resting Pulse: 1= [place] 81-100 Sweatin= Chills/Flushing Restless Observation: 3= Extraneous Movement Pupil Size: 0= Normal to Room Light Bone or Joint Aches: 2= Severe Diffuse Aches Runny Nose/ Eye Tearin= Runny Nose/Eyes GI Upset > 30mins: 2= Nausea/Diarrhea Tremor Observation of Outstretched Hands: 2= Slight Tremor Visible Yawning Observation: 0= None Anxiety or Irritability: 2=Irritable/Anxious Goose Flesh Skin: 0=Smooth Skin COWS Score: 15 BHS Progress Note (SOAP) Subjective: Feeling tired, medication is working well. A female peer (RW) assumed that this patient and herself took valium then she stated that it's seroquel from another female patient (FN) but patient and FN denied allegation. U-tox done on site: positive for methadone and benzo (patient is on such detox protocol) Objective: 05/10/19 15:28 Last Vital Signs Temp Pulse Resp BP Pulse Ox 98.4 F 89 18 157/96 05/10/19 14:21 05/10/19 14:21 05/10/19 14:21 05/10/19 14:21 Elevated b/p noted: denies htn, on clonidine prn Laboratory Tests 05/09/19 05/09/19 05/09/19 08:10 08:10 08:10 WBC 5.5 RBC 3.98 L Hgb 11.6 L Hct 35.0 L MCV 88.1 MCH 29.3 MCHC 33.2 RDW 13.9 Plt Count 246 MPV 7.8 Sodium 134 L Potassium 3.6 Chloride 99 Carbon Dioxide 29 Anion Gap 7 L BUN 18.0 Creatinine 0.9 Est GFR (CKD-EPI)AfAm 124.26 Est GFR (CKD-EPI)NonAf 107.21 Random Glucose 118 H Calcium 8.2 L Total Bilirubin 0.2 AST 53 H ALT 53 Alkaline Phosphatase 108 Total Protein 7.7 Albumin 3.3 L RPR Titer Nonreactive Labs reviewed: Na 134 (L), serum glucose 118 (H), Ca 8.2 (L) Urine toxicology on site: + methadone and benzo (patient is on both for detox) Assessment: 05/10/19 15:34 Withdrawal sxs Noted with hyponatremia, hyperglycemia and hypocalcemia Plan: Continue detox Encouraged PO water intake Elevated b/p: denies htn, continue clonidine prn Hyponatremia: mild, asymptomatic, encouraged diet, repeat serum Na on 05/12 Hyperglycemia: denies dm, most likely withdrawal related, repeat fasting glucose and send A1c on 05/12/19 Hypocalcemia: start calcium carbonate 650mg PO bid x 3 days, repeat serum calcium on 05/12/19
[2019-05-10] MEDS: CALCIUM CARBONATE 650 MG TABLET PO SCH (22:06)
[2019-05-10] MEDS: THIAMINE HCL 100 MG TABLET (FP) PO SCH (22:06)
[2019-05-10] MEDS: QUEtiapine FUMARATE 200 MG TABLET PO SCH (22:06)
[2019-05-11] MEDS ORDERED: diazePAM 5 MG TABLET PO ONE (06:00)
[2019-05-11] MEDS ORDERED: METHADONE HCL 5 MG TABLET (FOR DETOX USE ONLY) ONE (09:08)
[2019-05-11] MEDS ORDERED: METHADONE HCL 10 MG TABLET (FOR DETOX USE ONLY) ONE (09:08)
[2019-05-11] MEDS ORDERED: METHADONE (DETOX) 10 MG, METHADONE (DETOX) 5 MG PO ONE (10:00)
[2019-05-11] MEDS: PRENATAL VITAMINS W/ FOLIC ACID TABLET (FP) PO SCH (10:25)
[2019-05-11] MEDS: CALCIUM CARBONATE 650 MG TABLET PO SCH ×2 (10:25→22:05)
[2019-05-11] MEDS: NICOTINE 7 MG/24 HOURS TOPICAL PATCH TD SCH (10:25)
--- NOTE | 2019-05-11 11:11 | PN ---
S COWS - Scale Resting Pulse: 0= [place] 80 or Below Sweatin= No chills or Flushing Restless Observation: 1= Difficult to Sit Still Pupil Size: 1= Pupils >than Normal Bone or Joint Aches: 1= Mild Discomfort Runny Nose/ Eye Tearin= Nasal Congestion GI Upset > 30mins: 1= Stomach Cramp Tremor Observation of Outstretched Hands: 1= Tremor [place], Not Seen Yawning Observation: 1= 1-2x During Session Anxiety or Irritability: 2=Irritable/Anxious Goose Flesh Skin: 0=Smooth Skin COWS Score: 9 S Progress Note (SOAP) Subjective: alert,irritable,anxious,interrupted sleep,pain in the bod,back,nausea Objective: 05/11/19 11:10 Vital Signs Temperature 98.4 F 05/11/19 09:46 Pulse Rate 79 05/11/19 09:46 Respiratory Rate 18 05/11/19 09:46 Blood Pressure 134/96 05/11/19 09:46 O2 Sat by Pulse Oximetry (%) Laboratory Last Values WBC 5.5 K/mm3 (4.0-10.0) 05/09/19 08:10 RBC 3.98 M/mm3 (4.00-5.60) L 05/09/19 08:10 Hgb 11.6 GM/dL (11.7-16.9) L 05/09/19 08:10 Hct 35.0 % (35.4-49) L 05/09/19 08:10 MCV 88.1 fl (80-96) 05/09/19 08:10 MCH 29.3 pg (25.7-33.7) 05/09/19 08:10 MCHC 33.2 g/dl (32.0-35.9) 05/09/19 08:10 RDW 13.9 % (11.9-15.9) 05/09/19 08:10 Plt Count 246 K/MM3 (134-434) 05/09/19 08:10 MPV 7.8 fl (7.5-11.1) 05/09/19 08:10 Sodium 134 mmol/L (136-145) L 05/09/19 08:10 Potassium 3.6 mmol/L (3.5-5.1) 05/09/19 08:10 Chloride 99 mmol/L (98-107) 05/09/19 08:10 Carbon Dioxide 29 mmol/L (21-32) 05/09/19 08:10 Anion Gap 7 MMOL/L (8-16) L 05/09/19 08:10 BUN 18.0 mg/dL (7-18) 05/09/19 08:10 Creatinine 0.9 mg/dL (0.55-1.3) 05/09/19 08:10 Est GFR (CKD-EPI)AfAm 124.26 05/09/19 08:10 Est GFR (CKD-EPI)NonAf 107.21 05/09/19 08:10 Random Glucose 118 mg/dL (74-106) H 05/09/19 08:10 Calcium 8.2 mg/dL (8.5-10.1) L 05/09/19 08:10 Total Bilirubin 0.2 mg/dL (0.2-1) 05/09/19 08:10 AST 53 U/L (15-37) H 05/09/19 08:10 ALT 53 U/L (13-61) 05/09/19 08:10 Alkaline Phosphatase 108 U/L (45-117) 05/09/19 08:10 Total Protein 7.7 g/dl (6.4-8.2) 05/09/19 08:10 Albumin 3.3 g/dl (3.4-5.0) L 05/09/19 08:10 RPR Titer Nonreactive (NONREACTIVE) 05/09/19 08:10 Assessment: 05/11/19 11:11 withdrawal symptom Plan: continue detox methadone regimen,awiting for fasting glucose in am,initial glucose 118
[2019-05-11 13:46] LABS: URINE APPEARANCE CLEAR; URINE BILIRUBIN NEGATIVE (NEGATIVE); URINE COLOR YELLOW; URINE GLUCOSE (UA) NEGATIVE (NEGATIVE); URINE KETONE NEGATIVE (NEGATIVE); URINE LEUK ESTERASE NEGATIVE (NEGATIVE); URINE NITRITE NEGATIVE (NEGATIVE); URINE PROTEIN NEGATIVE (NEGATIVE); URINE UROBILINOGEN 0.2 mg/dL (0.2-1.0)
--- NOTE | 2019-05-11 14:53 | EKG ---
Test Reason : Blood Pressure : / mmHG Vent. Rate : 065 BPM Atrial Rate : 065 BPM P-R Int : 146 ms QRS Dur : 084 ms QT Int : 390 ms P-R-T Axes : 064 028 015 degrees QTc Int : 405 ms NORMAL SINUS RHYTHM WITH SINUS ARRHYTHMIA NORMAL ECG WHEN COMPARED WITH ECG OF 18-DEC-2018 08:25, NO SIGNIFICANT CHANGE WAS FOUND Confirmed by MIKHAIL JAMESON MD ([id number]) on 05/11/2019 2:53:03 PM Referred By: Confirmed By:MIKHAIL JAMESON MD
[2019-05-11] MEDS: diazePAM 5 MG TABLET PO PRN (17:24)
[2019-05-11] MEDS: QUEtiapine FUMARATE 200 MG TABLET PO SCH (22:05)
[2019-05-11] MEDS: THIAMINE HCL 100 MG TABLET (FP) PO SCH (22:05)
[2019-05-12] MEDS ORDERED: METHADONE HCL 10 MG TABLET (FOR DETOX USE ONLY) PO ONE (10:00)
[2019-05-12 10:25] LABS: CALCIUM 9.1 mg/dL (8.5-10.1)
[2019-05-12] MEDS: PRENATAL VITAMINS W/ FOLIC ACID TABLET (FP) PO SCH (10:28)
[2019-05-12] MEDS: CALCIUM CARBONATE 650 MG TABLET PO SCH ×2 (10:29→22:03)
[2019-05-12] MEDS: NICOTINE 7 MG/24 HOURS TOPICAL PATCH TD SCH (10:29)
--- NOTE | 2019-05-12 11:05 | PN ---
BHS COWS - Scale Resting Pulse: 2= [place] 101-120 Sweatin= No chills or Flushing Restless Observation: 0= Sits Still Pupil Size: 0= Normal to Room Light Bone or Joint Aches: 1= Mild Discomfort Runny Nose/ Eye Tearin= Nasal Congestion GI Upset > 30mins: 1= Stomach Cramp Tremor Observation of Outstretched Hands: 1= Tremor [place], Not Seen Yawning Observation: 1= 1-2x During Session Anxiety or Irritability: 2=Irritable/Anxious Goose Flesh Skin: 0=Smooth Skin COWS Score: 9 S Progress Note (SOAP) Subjective: alert,irritable anxious,interrupted sleep,pain in the body, Objective: 05/12/19 11:03 Vital Signs Temperature 96.9 F L 05/12/19 09:27 Pulse Rate 103 H 05/12/19 09:27 Respiratory Rate 18 05/12/19 09:27 Blood Pressure 137/82 05/12/19 09:27 O2 Sat by Pulse Oximetry (%) 05/12/19 11:04 Abnormal Lab Results 05/11/19 05/12/19 08:15 08:00 Fasting Glucose 115 H Ur Specific [place] 1.008 L Assessment: 05/12/19 11:03 withdrawal symptom Plan: continued detox methadone regimen,discharge in am
[2019-05-12] MEDS: QUEtiapine FUMARATE 200 MG TABLET PO SCH (22:02)
[2019-05-12] MEDS: THIAMINE HCL 100 MG TABLET (FP) PO SCH (22:02)
[2019-05-13] MEDS ORDERED: METHADONE HCL 5 MG TABLET (FOR DETOX USE ONLY) PO ONE (06:00)
--- NOTE | 2019-05-13 09:09 | DS ---
[facility] Detox Discharge Summary Admission Date: 05/08/19 - History Present History: Alcohol Dependence, Cannabis Dependence, Cocaine Dependence, Opioid Dependence, Sedative Dependence - Physical Exam Results Vital Signs: Vital Signs Temperature 97.9 F 05/13/19 05:00 Pulse Rate 101 H 05/13/19 05:00 Respiratory Rate 20 05/13/19 05:00 Blood Pressure 133/78 05/13/19 05:00 O2 Sat by Pulse Oximetry (%) Pertinent Admission Physical Exam Findings: Vital Signs Temperature 97.9 F 05/13/19 05:00 Pulse Rate 101 H 05/13/19 05:00 Respiratory Rate 20 05/13/19 05:00 Blood Pressure 133/78 05/13/19 05:00 O2 Sat by Pulse Oximetry (%) Laboratory Tests 05/09/19 05/09/19 05/09/19 08:10 08:10 08:10 WBC 5.5 RBC 3.98 L Hgb 11.6 L Hct 35.0 L MCV 88.1 MCH 29.3 MCHC 33.2 RDW 13.9 Plt Count 246 MPV 7.8 Sodium 134 L Potassium 3.6 Chloride 99 Carbon Dioxide 29 Anion Gap 7 L BUN 18.0 Creatinine 0.9 Est GFR (CKD-EPI)AfAm 124.26 Est GFR (CKD-EPI)NonAf 107.21 Random Glucose 118 H Fasting Glucose Hemoglobin A1c % Calcium 8.2 L Total Bilirubin 0.2 AST 53 H ALT 53 Alkaline Phosphatase 108 Total Protein 7.7 Albumin 3.3 L Urine Color Urine Appearance Urine pH Ur Specific [place] Urine Protein Urine Glucose (UA) Urine Ketones Urine Blood Urine Nitrite Urine Bilirubin Urine Urobilinogen Ur Leukocyte Esterase RPR Titer Nonreactive 05/11/19 05/12/19 05/12/19 08:15 08:00 08:00 WBC RBC Hgb Hct MCV MCH MCHC RDW Plt Count MPV Sodium 138 Potassium Chloride Carbon Dioxide Anion Gap BUN Creatinine Est GFR (CKD-EPI)AfAm Est GFR (CKD-EPI)NonAf Random Glucose Fasting Glucose 115 H Hemoglobin A1c % 5.8 Calcium 9.1 Total Bilirubin AST ALT Alkaline Phosphatase Total Protein Albumin Urine Color Yellow Urine Appearance Clear Urine pH 7.0 Ur Specific [place] 1.008 L Urine Protein Negative Urine Glucose (UA) Negative Urine Ketones Negative Urine Blood Negative Urine Nitrite Negative Urine Bilirubin Negative Urine Urobilinogen 0.2 Ur Leukocyte Esterase Negative RPR Titer aaox3 ambulating no acute distress - Treatment Hospital Course: Detox Protocol Followed, Detoxed Safely, Responded well, Discharged Condition Good, Rehab Referral Accepted Patient has Accepted a Rehab Referral to: [facility] - Medication Discharge Medications: Ambulatory Orders Quetiapine Fumarate [Seroquel -] 100 mg PO DAILY 05/08/19 Quetiapine Fumarate [Seroquel -] 200 mg PO HS 05/08/19 - Diagnosis (1) Opioid dependence with withdrawal Current Visit: Yes Status: Chronic (2) Cannabis dependence, uncomplicated Current Visit: Yes Status: Chronic (3) Cocaine dependence, uncomplicated Current Visit: Yes Status: Chronic (4) History of bipolar disorder Current Visit: Yes Status: Chronic (5) Insomnia Current Visit: Yes Status: Chronic (6) Nicotine dependence Current Visit: Yes Status: Chronic Qualifiers: Nicotine product type: cigarettes Substance use status: uncomplicated Qualified Code(s): F17.210 - Nicotine dependence, cigarettes, uncomplicated (7) Non-compliance Current Visit: Yes Status: Chronic (8) Substance induced mood disorder Current Visit: Yes Status: Suspected (9) Abnormal finding on EKG Current Visit: No Status: Acute (10) Abscess of right upper extremity Current Visit: No Status: Acute (11) Constipation Current Visit: No Status: Acute Qualifiers: Constipation type: drug induced constipation Qualified Code(s): K59.03 - Drug induced constipation (12) Elevated aspartate aminotransferase level Current Visit: No Status: Acute (13) IVDU (intravenous drug user) Current Visit: No Status: Acute (14) Track [place] due to intravenous drug abuse Current Visit: No Status: Acute (15) Hepatitis C Current Visit: No Status: Chronic Qualifiers: Viral hepatitis chronicity: chronic Hepatic coma status: without hepatic coma Qualified Code(s): B18.2 - Chronic viral hepatitis C (16) Xanax use disorder, moderate Current Visit: No Status: Chronic - AMA Did Patient Leave Against Medical Advice: No
[2019-05-13 10:01] VITALS: TEMP 98.2
[2019-05-13] MEDS: CALCIUM CARBONATE 650 MG TABLET PO SCH (10:48)
[2019-05-13] MEDS: PRENATAL VITAMINS W/ FOLIC ACID TABLET (FP) PO SCH (10:48)
[2019-05-13] MEDS: NICOTINE 7 MG/24 HOURS TOPICAL PATCH TD SCH (10:48)
[2019-05-13 13:49] VITALS: BP 129/81; PULSE 107
== END 2019-05-13 13:47 | disposition other institution (70) | DRG 897 ==
LOC: YASAS 17:52 → Y6N 19:30
PROVIDERS: ADMIT Allergy & Immunology; ATTEND Allergy & Immunology
PROC: HZ2ZZZZ Detoxification Services for Substance Abuse Treatment (ICD-10-PCS; principal; 2019-05-08)
DX: F11.23 Opioid dependence with withdrawal (principal); F14.20 Cocaine dependence, uncomplicated; E87.1 Hypo-osmolality and hyponatremia; L02.413 Cutaneous abscess of right upper limb; F10.230 Alcohol dependence with withdrawal, uncomplicated; F12.20 Cannabis dependence, uncomplicated; F17.210 Nicotine dependence, cigarettes, uncomplicated; F19.24 Other psychoactive substance dependence with psychoactive substance-induced mood disorder; G47.00 Insomnia, unspecified; R94.31 Abnormal electrocardiogram [ECG] [EKG]; R74.0 Nonspecific elevation of levels of transaminase and lactic acid dehydrogenase [LDH]; R73.9 Hyperglycemia, unspecified; K59.03 Drug induced constipation; E83.51 Hypocalcemia; B18.2 Chronic viral hepatitis C; Z21 Asymptomatic human immunodeficiency virus [HIV] infection status; R00.0 Tachycardia, unspecified; Z91.19 Patient's noncompliance with other medical treatment and regimen; Z91.013 Allergy to seafood
CPT/HCPCS: 36415; 80053; 81003; 82310; 82947; 83036; 84295; 85027; 86593; 93005; 93010

== ENCOUNTER 2019-05-13 13:52 | Inpatient (IN) | payer OTHER ==
[2019-05-13] MEDS ORDERED: hydrOXYzine PAMOATE 25 MG CAPSULE (FP) PO PRN (14:31)
[2019-05-13] MEDS ORDERED: IBUPROFEN 400 MG TABLET (FP) PO PRN (14:31)
[2019-05-13] MEDS ORDERED: LOPERAMIDE HCL 2 MG CAPSULE PO PRN (14:31)
[2019-05-13] MEDS ORDERED: MENTHOL/PHENOL 1 EACH UD MM PRN (14:31)
[2019-05-13] MEDS ORDERED: MAGNESIUM CITRATE 300 ML BOTTLE PO PRN (14:31)
[2019-05-13] MEDS ORDERED: guaiFENesin 200 MG/10 ML 10 ML UNIT-DOSE CUPS PO PRN (14:31)
[2019-05-13] MEDS ORDERED: MAGNESIUM HYDROX 2400MG/30ML ORAL SUSPENSION 30 ML CUP PO PRN (14:31)
[2019-05-13] MEDS ORDERED: P-EPHED 60MG/TRIPROLIDI 2.5MG TABLET PO PRN (14:31)
[2019-05-13] MEDS ORDERED: NICOTINE POLACRILEX 2 MG GUM BUC PRN (14:31)
[2019-05-13] MEDS ORDERED: MAG HYDROX/AL HYDROX/SIMETH 30 ML UNIT-DOSE CUP PO PRN (14:31)
--- NOTE | 2019-05-13 14:37 | PN ---
[facility] Progress Note Note: Patient admitted to [facility]. Orders placed, home medications reviewed, labs reviewed, problem list reviewed. Patient with his of suicide attempt x2 several years. ago General: No apparent distress HEENTM: normocephalic Lungs: clear Heart: s1 s2 ABD:+BS Neuro: Cn 2-12 intact MSK: full weight bearing, full ROM, steady gait. Substance use rehab' maintain safety.
[2019-05-13] MEDS: MELATONIN 5 MG TABLETS PO PRN (21:12)
[2019-05-13] MEDS: THIAMINE HCL 100 MG TABLET (FP) PO SCH (21:12)
[2019-05-13] MEDS: ACETAMINOPHEN 325 MG TABLET (FP) PO PRN (21:13)
[2019-05-14] MEDS: NICOTINE 14 MG/24 HOURS TOPICAL PATCH TD SCH (09:42)
[2019-05-14] MEDS: PRENATAL VITAMINS W/ FOLIC ACID TABLET (FP) PO SCH (09:42)
[2019-05-14] MEDS: ACETAMINOPHEN 325 MG TABLET (FP) PO PRN (21:30)
[2019-05-14] MEDS: THIAMINE HCL 100 MG TABLET (FP) PO SCH (21:31)
[2019-05-14] MEDS: MELATONIN 5 MG TABLETS PO PRN (21:31)
[2019-05-15] MEDS: NICOTINE 14 MG/24 HOURS TOPICAL PATCH TD SCH (10:14)
[2019-05-15] MEDS: PRENATAL VITAMINS W/ FOLIC ACID TABLET (FP) PO SCH (10:14)
[2019-05-15] MEDS: ACETAMINOPHEN 325 MG TABLET (FP) PO PRN (19:38)
[2019-05-15] MEDS: MELATONIN 5 MG TABLETS PO PRN (21:30)
[2019-05-15] MEDS: THIAMINE HCL 100 MG TABLET (FP) PO SCH (21:30)
[2019-05-16] MEDS: PRENATAL VITAMINS W/ FOLIC ACID TABLET (FP) PO SCH (10:05)
[2019-05-16] MEDS: NICOTINE 14 MG/24 HOURS TOPICAL PATCH TD SCH (10:05)
[2019-05-16] MEDS: THIAMINE HCL 100 MG TABLET (FP) PO SCH (21:32)
[2019-05-16] MEDS: ACETAMINOPHEN 325 MG TABLET (FP) PO PRN (21:32)
[2019-05-17] MEDS: NICOTINE 14 MG/24 HOURS TOPICAL PATCH TD SCH (09:49)
[2019-05-17] MEDS: PRENATAL VITAMINS W/ FOLIC ACID TABLET (FP) PO SCH (09:49)
[2019-05-17] MEDS: ACETAMINOPHEN 325 MG TABLET (FP) PO PRN (21:48)
[2019-05-17] MEDS: THIAMINE HCL 100 MG TABLET (FP) PO SCH (21:49)
[2019-05-17] MEDS: MELATONIN 5 MG TABLETS PO PRN (21:50)
[2019-05-18] MEDS: NICOTINE 14 MG/24 HOURS TOPICAL PATCH TD SCH (10:12)
[2019-05-18] MEDS: PRENATAL VITAMINS W/ FOLIC ACID TABLET (FP) PO SCH (10:12)
[2019-05-18] MEDS: THIAMINE HCL 100 MG TABLET (FP) PO SCH (21:14)
[2019-05-18] MEDS: MELATONIN 5 MG TABLETS PO PRN (21:14)
[2019-05-18] MEDS: ACETAMINOPHEN 325 MG TABLET (FP) PO PRN (21:14)
[2019-05-19] MEDS: NICOTINE 14 MG/24 HOURS TOPICAL PATCH TD SCH (09:41)
[2019-05-19] MEDS: PRENATAL VITAMINS W/ FOLIC ACID TABLET (FP) PO SCH (09:41)
[2019-05-19] MEDS: ACETAMINOPHEN 325 MG TABLET (FP) PO PRN (21:19)
[2019-05-19] MEDS: THIAMINE HCL 100 MG TABLET (FP) PO SCH (21:19)
[2019-05-19] MEDS: MELATONIN 5 MG TABLETS PO PRN (21:19)
[2019-05-20] MEDS: PRENATAL VITAMINS W/ FOLIC ACID TABLET (FP) PO SCH (09:36)
[2019-05-20] MEDS: NICOTINE 14 MG/24 HOURS TOPICAL PATCH TD SCH (09:36)
[2019-05-20] MEDS: THIAMINE HCL 100 MG TABLET (FP) PO SCH (21:09)
[2019-05-20] MEDS: MELATONIN 5 MG TABLETS PO PRN (21:09)
[2019-05-21] MEDS: NICOTINE 14 MG/24 HOURS TOPICAL PATCH TD SCH (09:53)
[2019-05-21] MEDS: PRENATAL VITAMINS W/ FOLIC ACID TABLET (FP) PO SCH (09:53)
[2019-05-21] MEDS: THIAMINE HCL 100 MG TABLET (FP) PO SCH (21:27)
[2019-05-21] MEDS: MELATONIN 5 MG TABLETS PO PRN (21:27)
[2019-05-22 07:07] VITALS: BP 114/72; PULSE 73; TEMP 98.2
[2019-05-22] MEDS: NICOTINE 14 MG/24 HOURS TOPICAL PATCH TD SCH (10:00)
[2019-05-22] MEDS: PRENATAL VITAMINS W/ FOLIC ACID TABLET (FP) PO SCH (10:00)
--- NOTE | 2019-05-22 17:14 | DS ---
[facility] Rehab Discharge Summary - [facility] Rehab Discharge Summary Admission Date: 05/13/19 Discharge Date: 05/23/19 - History Present History: Alcohol dependence, Cocaine dependence, K2, Opioid dependence Additional Comments: Admitted after completion of detox. Pertinent Past History: HIV+ - Discharge Physical Exam Vital Signs: Vital Signs Temperature 98.2 F 05/22/19 07:06 Pulse Rate 73 05/22/19 07:06 Respiratory Rate 18 05/22/19 07:06 Blood Pressure 114/72 05/22/19 07:06 O2 Sat by Pulse Oximetry (%) Pertinent Admission Physical Exam Findings: Patient admitted from detox in early remission. - Treatment Discharge Condition: Discharge condition good Hospital Course: Stabilized. - Medication Discharge Medications: Ambulatory Orders Quetiapine Fumarate [Seroquel -] 100 mg PO DAILY 05/08/19 Quetiapine Fumarate [Seroquel -] 200 mg PO HS 05/08/19 - Medication-Assisted Treatment (MAT) Medication-Assisted Treatment (MAT): No - Discharge Instructions Diet, activity, other medical instructions: Diet: Activity: Other medical instructions: Patient encouraged to f/u w/ PCP and mental health provider. - Diagnosis (1) IVDU (intravenous drug user) Status: Chronic (2) Cannabis dependence, uncomplicated Status: Chronic (3) Cocaine dependence, uncomplicated Status: Chronic (4) History of bipolar disorder Status: Chronic (5) Insomnia Status: Chronic Qualifiers: Insomnia type: unspecified Qualified Code(s): G47.00 - Insomnia, unspecified (6) Nicotine dependence Status: Chronic Qualifiers: Nicotine product type: cigarettes Substance use status: uncomplicated Qualified Code(s): F17.210 - Nicotine dependence, cigarettes, uncomplicated (7) Opioid use disorder, moderate, in early remission Status: Acute (8) Sedative, hypnotic or anxiolytic use disorder, moderate, in early remission Status: Acute (9) Alcohol use disorder, moderate, in early remission Status: Acute - Follow-up Referral Minutes to complete discharge: 15 - AMA Did Patient Leave Against Medical Advice: No
--- NOTE | 2019-05-22 17:14 | PN ---
[facility] Progress Note Note: Patient decided to leave. Patient refused to wait to speak w/ CASHIER CLERK. Patient declined any prescriptions for NRT. .
== END 2019-05-22 17:55 | disposition home or self-care (01) | DRG 895 ==
LOC: YASAS 13:52 → Y3W 13:53
PROVIDERS: ADMIT Neuromusculoskeletal Medicine & OMM; ATTEND Neuromusculoskeletal Medicine & OMM
PROC: HZ42ZZZ Group Counseling for Substance Abuse Treatment, Cognitive-Behavioral (ICD-10-PCS; principal; 2019-05-13)
DX: F10.20 Alcohol dependence, uncomplicated (principal); F11.20 Opioid dependence, uncomplicated; F13.20 Sedative, hypnotic or anxiolytic dependence, uncomplicated; F14.20 Cocaine dependence, uncomplicated; F12.20 Cannabis dependence, uncomplicated; F17.210 Nicotine dependence, cigarettes, uncomplicated; F31.9 Bipolar disorder, unspecified; G47.00 Insomnia, unspecified; Z91.5 Personal history of self-harm; Z91.013 Allergy to seafood

== ENCOUNTER 2019-12-11 11:01 | Inpatient (IN) | payer OTHER ==
--- NOTE | 2019-12-11 12:44 | BHS.RME ---
Substance Use & Tx History - Substance Use History Heroin Substance amount: 15 bags Frequency of use: Daily Substance route: Injection (ex: intravenous or skin popping) Date of Last Use: 12/11/19 Cocaine- Powder Substance amount: 15 bags Frequency of use: Daily Substance route: Injection (ex: intravenous or skin popping) Date of Last Use: 12/11/19 Nicotine Substance amount: 1/2 pack Frequency of use: Daily Substance route: Smoking Date of Last Use: 12/11/19 Synthetic Cannabinoid Substance amount: k2 Frequency of use: Daily Substance route: Smoking Date of Last Use: 12/11/19 Physical/Psych/Mental Status - Behavior General Behavior: Increased activity (restlessness, agitation) Eye Contact: Normal - Cooperativeness Cooperativeness: Cooperative - Thinking Thought Processes: Tight, Logical, Goal Directed - Physical Health Problems Is patient presently having any pain?: No Does patient presently have any injuries (include location): No Does patient currently have a fever: No Is patient : No COWS - Scale Resting Pulse: 0= [place] 80 or Below Sweatin= Chills/Flushing Restless Observation: 1= Difficult to Sit Still Pupil Size: 1= Pupils >than Normal Bone or Joint Aches: 2= Severe Diffuse Aches Runny Nose/ Eye Tearin= Runny Nose/Eyes GI Upset > 30mins: 1= Stomach Cramp Tremor Observation: 1= Tremor [place], Not Seen Yawning Observation: 1= 1-2x During Session Anxiety or Irritability: 2=Irritable/Anxious Goose Flesh Skin: 0=Smooth Skin COWS Score: 12
[2019-12-11 14:59] VITALS: BMI 22.1
--- NOTE | 2019-12-11 15:36 | HP ---
COWS - Scale Resting Pulse: 0= [place] 80 or Below Sweatin= Chills/Flushing Restless Observation: 0= Sits Still Pupil Size: 0= Normal to Room Light Bone or Joint Aches: 0= None Runny Nose/ Eye Tearin= None GI Upset > 30mins: 0= None Tremor Observation: 0= None Yawning Observation: 0= None Anxiety or Irritability: 1=Feels Anxious/Irritable Goose Flesh Skin: 0=Smooth Skin COWS Score: 2 CIWA Score - Admission Criteria OASAS Guidelines: Admission for Medically Managed Detox: Requires at least one of the followin. CIWA greater than 12 2. Seizures within the past 24 hours 3. Delirium tremens within the past 24 hours 4. Hallucinations within the past 24 hours 5. Acute intervention needed for co occurring medical disorder 6. Acute intervention needed for co occurring psychiatric disorder 7. Severe withdrawal that cannot be handled at a lower level of care (continued vomiting, continued diarrhea, abnormal vital signs) requiring intravenous medication and/or fluids 8. Admitting History and Physical - Admission History of Present Illness: Mr. Barlow presents [facility] today presenting for detox from heroin PMH:HIV +, HCV +, both not treated. PSH: None PSYCH: Bipolar, depression. Was taking clonapine for anxiety but not anymore SOCIAL/DOMICILED:Homeless, [address] Legal: None Substance Use & Tx History - Substance Use History Heroin Substance amount: 15 bags Frequency of use: Daily Substance route: Injection (ex: intravenous or skin popping) Date of Last Use: 12/11/19 First use: 15yo Cocaine- Powder Substance amount: 15 bags Frequency of use: Daily Substance route: Injection (ex: intravenous or skin popping) Date of Last Use: 12/11/19 First use: 15yo Nicotine Substance amount: 1/2 pack Frequency of use: Daily Substance route: Smoking Date of Last Use: 12/11/19 First use: 8 months ago(38 yo) Synthetic Cannabinoid Substance amount: k2 Frequency of use: Daily Substance route: Smoking Date of Last Use: 12/11/19 First use: 8mo ago, age 38 History Source: Patient Limitations to Obtaining History: No Limitations - Past Medical History Hepatobiliary: Yes: Hepatitis C (untreated) Infectious Disease: Yes: HIV (untreated) Psych: Yes: Addictions, Bipolar, Depression - Smoking History Smoking history: Current every day smoker Have you smoked in the past 12 months: Yes Aproximately how many cigarettes per day: 10 - Alcohol/Substance Use Hx Alcohol Use: No History of Substance Use: reports: Cocaine, Heroin - Social History Usual Living Arrangement: Yes: Other (on street, alone) ADL: Independent History of Recent Travel: No Admission ROS S - HPI Allergies/Adverse Reactions: Allergies Allergy/AdvReac Type Severity Reaction Status Date / Time Fish Containing Products Allergy Severe Hives Verified 08/04/19 19:40 No Known Drug Allergies Allergy Verified 08/04/19 19:40 NKDA Allergy Uncoded 08/04/19 19:40 Exam Limitations: No Limitations - Ebola screening Have you traveled outside of the country in the last 21 days: No Have you been sick,other than usual withdrawal symptoms: No Do you have a fever: No - Review of Systems Constitutional: No Symptoms Reported EENT: reports: No Symptoms Reported Respiratory: reports: No Symptoms reported Cardiac: reports: No Symptoms Reported GI: reports: No Symptoms Reported : reports: No Symptoms Reported Musculoskeletal: reports: No Symptoms Reported Integumentary: reports: No Symptoms Reported Neuro: reports: No Symptoms reported Endocrine: reports: No Symptoms Reported Hematology: reports: No Symptoms Reported Psychiatric: reports: Anxious Patient History - Patient Medical History Hx Anemia: No Hx Asthma: No Hx Chronic Obstructive Pulmonary Disease (COPD): No Hx Cancer: No Hx Cardiac Disorders: No Hx Congestive Heart Failure: No Hx Hypertension: Yes Hx Hypercholesterolemia: No Hx Pacemaker: No HX Cerebrovascular Accident: No Hx Seizures: No Hx Dementia: No Hx Diabetes: No Hx Gastrointestinal Disorders: No Hx Liver Disease: Yes (Hep C; Diagnosed 2008; No Treatment yet.) Hx Genitourinary Disorders: No Hx Sexually Transmitted Disorders: No Hx Renal Disease (ESRD): No Hx Thyroid Disease: No Hx Human Immunodeficiency Virus (HIV): Yes (2008 positive not on treatment) Hx Hepatitis C: Yes (Diagnosed 2008; No Treatment yet.) Hx Depression: Yes Hx Suicide Attempt: No Hx Bipolar Disorder: Yes Hx Schizophrenia: No - Patient Surgical History Past Surgical History: No Hx Neurologic Surgery: No Hx Cataract Extraction: No Hx Cardiac Surgery: No Hx Lung Surgery: No Hx Breast Surgery: No Hx Breast Biopsy: No Hx Abdominal Surgery: No Hx Appendectomy: No Hx Cholecystectomy: No Hx Genitourinary Surgery: No Hx Section: No Hx Orthopedic Surgery: No Anesthesia Reaction: No - PPD History Previous Implant?: Yes Documented Results: Negative w/proof Implanted On Prior [facility] Admission?: Yes Date: 12/18/18 Results: Negative - Smoking Cessation Smoking history: Current every day smoker Have you smoked in the past 12 months: Yes Aproximately how many cigarettes per day: 10 Cigars Per Day: 0 Hx Chewing Tobacco Use: No Initiated information on smoking cessation: Yes 'Breaking Loose' booklet given: 12/11/19 - Substances abused Cocaine Substance route: Injection Frequency: Daily Amount used: "15 $10 bags a day" Age of first use: 15 Date of last use: 12/11/19 Heroin Substance route: Injection Frequency: Daily Amount used: "15 $10 bags a day" Age of first use: 15 Date of last use: 12/11/19 Other Other (specify): K2 Substance route: Smoking Frequency: Daily Amount used: "10 Sticks a day" Age of first use: 39 Date of last use: 12/11/19 Admission Physical Exam S - Vital Signs Vital Signs: Vital Signs - 24 hr 12/11/19 14:52 Temperature 98 F Pulse Rate 58 L Respiratory 12 Rate Blood Pressure 135/88 - Physical General Appearance: Yes: Within Normal Limits, No Apparent Distress, Nourished, Appropriately Dressed HEENTM: Yes: Within Normal Limits, EOMI, Hearing grossly Normal, Normal ENT Inspection, Normocephalic, Normal Voice, ANTHONY Respiratory: Yes: Within Normal Limits, Chest Non-Tender, Lungs Clear, Normal Breath Sounds, No Respiratory Distress, No Accessory Muscle Use Neck: Yes: Within Normal Limits, No masses,lesions,Nodules Breast: Yes: Breast Exam Deferred Cardiology: Yes: Within Normal Limits, Regular Rhythm, Regular Rate, S1, S2 Abdominal: Yes: Within Normal Limits, Normal Bowel Sounds, Non Tender, Flat, Soft Genitourinary: Yes: Within Normal Limits Back: Yes: Within Normal Limits, Other Musculoskeletal: Yes: Within Normal Limits Extremities: Yes: Within Normal Limits, Other (B/L TINEA PEDIS) Neurological: Yes: Within Normal Limits Integumentary: Yes: Within Normal Limits - Diagnostic (1) Synthetic cannabinoid dependence Current Visit: Yes Status: Acute (2) Cocaine dependence, uncomplicated Current Visit: No Status: Acute (3) Opioid dependence with withdrawal Current Visit: No Status: Acute (4) Bipolar disorder Current Visit: Yes Status: Chronic (5) HIV (human immunodeficiency virus infection) Current Visit: Yes Status: Chronic (6) Hepatitis C Current Visit: Yes Status: Chronic Qualifiers: Viral hepatitis chronicity: chronic Hepatic coma status: without hepatic coma Qualified Code(s): B18.2 - Chronic viral hepatitis C (7) Nicotine dependence Current Visit: Yes Status: Chronic Qualifiers: Nicotine product type: cigarettes Substance use status: uncomplicated Qualified Code(s): F17.210 - Nicotine dependence, cigarettes, uncomplicated (8) Depressed bipolar disorder Current Visit: Yes Status: Acute Cleared for Admission S - Detox or Rehab S Level of Care: Medically Managed Detox Regimen/Protocol: Methadone Screened but not Admitted - Documentation of Visit Screened but not Admitted: No Breathalyzer - Breathalyzer Breathalyzer: 0 Urine Drug Screen - Test Device Lot number: [id number] Expiration date: 01/24/21 - Control Is test valid?: Yes - Results Drug screen NEGATIVE: No Urine drug screen results: CECY-Cocaine, FEN-Fentanyl, MOP-Opiates Inpatient Rehab Admission - Rehab Decision to Admit Inpatient rehab admission?: No
[2019-12-11] MEDS ORDERED: MENTHOL/PHENOL 1 EACH UD MM PRN (16:03)
[2019-12-11] MEDS ORDERED: cloNIDine HCL 0.1 MG TABLET PO PRN (16:03)
[2019-12-11] MEDS ORDERED: IBUPROFEN 400 MG TABLET (FP) PO PRN (16:03)
[2019-12-11] MEDS ORDERED: MAGNESIUM HYDROX 2400MG/30ML ORAL SUSPENSION 30 ML CUP PO PRN (16:03)
[2019-12-11] MEDS ORDERED: BISMUTH SUBSALICYLATE 524 MG/30 ML UD PO PRN (16:03)
[2019-12-11] MEDS ORDERED: ACETAMINOPHEN 325 MG TABLET (FP) PO PRN ×2 (16:03)
[2019-12-11] MEDS ORDERED: MAGNESIUM CITRATE 300 ML BOTTLE PO PRN (16:03)
[2019-12-11] MEDS ORDERED: NICOTINE POLACRILEX 2 MG GUM BUC PRN (16:03)
[2019-12-11] MEDS ORDERED: MAG HYDROX/AL HYDROX/SIMETH 30 ML UNIT-DOSE CUP PO PRN (16:03)
[2019-12-11] MEDS ORDERED: ONDANSETRON *ODT* 4 MG TABLET SL ONE (16:45)
[2019-12-11] MEDS ORDERED: METHADONE HCL 10 MG TABLET (FOR DETOX USE ONLY) PO ONE (16:45)
[2019-12-11] MEDS ORDERED: TUBERCULIN PPD 5 TU/0.1ML VIAL ID ONE (17:41)
[2019-12-11] MEDS: hydrOXYzine PAMOATE 25 MG CAPSULE (FP) PO SCH ×2 (17:42→22:38)
[2019-12-11] MEDS: PRENATAL VITAMINS W/ FOLIC ACID TABLET (FP) PO SCH (17:42)
[2019-12-11] MEDS: NICOTINE 14 MG/24 HOURS TOPICAL PATCH TD SCH (17:42)
[2019-12-11] MEDS: MELATONIN 5 MG TABLETS PO SCH (22:37)
[2019-12-11] MEDS: THIAMINE HCL 100 MG TABLET (FP) PO SCH (22:38)
[2019-12-11] MEDS: METHOCARBAMOL 500 MG TABLET PO PRN (22:38)
[2019-12-12] MEDS: hydrOXYzine PAMOATE 25 MG CAPSULE (FP) PO SCH ×5 (06:11→21:29)
[2019-12-12] MEDS ORDERED: METHADONE (DETOX) 20 MG, METHADONE (DETOX) 5 MG PO ONE (10:00)
[2019-12-12] MEDS ORDERED: METHADONE HCL 5 MG TABLET (FOR DETOX USE ONLY) ONE (10:14)
[2019-12-12] MEDS ORDERED: METHADONE HCL 10 MG TABLET (FOR DETOX USE ONLY) ONE (10:14)
[2019-12-12] MEDS: NICOTINE 14 MG/24 HOURS TOPICAL PATCH TD SCH (10:15)
[2019-12-12] MEDS: PRENATAL VITAMINS W/ FOLIC ACID TABLET (FP) PO SCH (10:15)
--- NOTE | 2019-12-12 10:27 | PN ---
BHS COWS - Scale Resting Pulse: 0= [place] 80 or Below Sweatin= Chills/Flushing Restless Observation: 1= Difficult to Sit Still Pupil Size: 0= Normal to Room Light Bone or Joint Aches: 2= Severe Diffuse Aches Runny Nose/ Eye Tearin= None GI Upset > 30mins: 0= None Tremor Observation of Outstretched Hands: 2= Slight Tremor Visible Yawning Observation: 0= None Anxiety or Irritability: 2=Irritable/Anxious Goose Flesh Skin: 0=Smooth Skin COWS Score: 8 BHS Progress Note (SOAP) Subjective: Complaints of sweats, chills, aches and anxiety. Objective: 12/12/19 10:23 Vital Signs 12/12/19 12/12/19 05:34 08:31 Temperature 99.3 F 98.4 F Pulse Rate 60 54 L Respiratory 18 18 Rate Blood Pressure 145/98 120/73 O2 Sat by Pulse 97 96 Oximetry (%) Labs pending. Assessment: 12/12/19 10:23 Alert and oriented x 3, in no acute respiratory distress. Full ROM, ambulating in the unit without assistance. Withdrawal symptoms. Plan: Labs pending. Continue detox protocol.
[2019-12-12 10:30] LABS: RDW 13.4 % (11.9-15.9)
[2019-12-12 10:32] LABS: HEMATOCRIT 39.7 % (35.4-49); HEMOGLOBIN 13.1 GM/dL (11.7-16.9); MCH 28.4 pg (25.7-33.7); MCHC 32.9 g/dl (32.0-35.9); MEAN CELL VOLUME 86.4 fl (80-96); MEAN PLT VOLUME 7.5 fl (7.5-11.1); PLATELET COUNT 260 K/MM3 (134-434); WHITE BLOOD COUNT 4.5 K/mm3 (4.0-10.0)
[2019-12-12 10:42] LABS: BILIRUBIN,TOTAL 0.4 mg/dL (0.2-1); BLOOD UREA NITROGEN 7.5 mg/dL (7-18); CALCIUM 8.8 mg/dL (8.5-10.1); POTASSIUM 3.4 mmol/L (3.5-5.1); TOT PROT 7.6 g/dl (6.4-8.2)
--- NOTE | 2019-12-12 11:55 | CONSULT ---
[facility] Psychiatric Consult - Data Date of interview: 12/12/19 Admission source: [facility] Identifying data: Readmission to [address] [place] [address] (temporarily converted into a detoxification unit) for this 39 y/o male, self-referred for inpatient WALI care. Substances of abuse : heroin, cannabis/K2, cocaine, nicotine. Patient is single, no children, homeless (lives in the streets), unemployed and supported on SSI/SSD benefits (self-report). Substance Abuse History: Discussed with the patient. WALI profile as follows : Smoking history: Current every day smoker. Have you smoked in the past 12 months: Yes. Aproximately how many cigarettes per day: 10. Alcohol/Substance Use. Hx Alcohol Use: No. History of Substance Use: reports: Cocaine, Heroin. Heroin. Substance amount: 15 bags. Frequency of use: Daily. Substance route: Injection (ex: intravenous or skin popping). Date of Last Use: 12/11/19. First use: 15yo. Cocaine- Powder. Substance amount: 15 bags. Frequency of use: Daily. Substance route: Injection (ex: intravenous or skin popping). Date of Last Use: 12/11/19. First use: 15yo. Nicotine. Substance amount: 1/2 pack. Frequency of use: Daily. Substance route: Smoking. Date of Last Use: 12/11/19. First use: 8 months ago(38 yo). Synthetic Cannabinoid. Substance amount: k2. Frequency of use: Daily. Substance route: Smoking. Date of Last Use: 12/11/19. First use: 8mo ago, age 38. History of mutiple WALI treatment failures. Medical History: Medical profile is remarkable for HIV infection since 2008 (non compliant with ART medications), weight loss and hepatitis C (not treated). Psychiatric History: Patient is limited and marginally cooperative historian. He received inpatient psychiatric care for the first time in 2008 (admission to the [facility] for unclear circumstances). Mr Barlow states that he was, at the time, diagnosed with Bipolar Disorder and placed on psychotropic medications (still on lexapro 20 mg/day and seroquel 100 mg/day + 200 mg/hs). Patient endorses psychiatric hospitalizations at other institutions that include [facility] and [facility] (summer 2018). The patient continues to receive his psychiatric OPD care at the [facility] (formerly [facility]) under the supervision of with Dr Guidry. History of two suicide attempts (overdoses with medications). Physical/Sexual Abuse/Trauma History: Patient denies history of abuse. Additional Comment: Urine drug screen results: CECY-Cocaine, FEN-Fentanyl, MOP- Opiates. Noted. Mental Status Exam - Mental Status Exam Alert and Oriented to: Time, Place, Person Cognitive Function: Grossly Intact Patient Appearance: Unkempt (tattoos on both upper extremities), Disheveled Mood: Withdrawn Affect: Constricted Patient Behavior: Fatigued, Guarded, Cooperative (marginally cooperative) Speech Pattern: Clear Voice Loudness: Normal Thought Process: Goal Oriented Thought Disorder: Not Present Hallucinations: Denies Suicidal Ideation: Denies Homicidal Ideation: Denies Insight/Judgement: Poor Sleep: Poorly, Difficulty falling asleep Appetite: Fair, Weight loss Gait/Station: Other (not observed; patient declines to get out of bed due to fatigue) Psychiatric Findings - Problem List ([place] 1, 2,3) (1) Opioid dependence with withdrawal Current Visit: Yes Status: Acute (2) Cocaine dependence, uncomplicated Current Visit: Yes Status: Chronic (3) Synthetic cannabinoid dependence Current Visit: Yes Status: Chronic (4) Nicotine dependence Current Visit: Yes Status: Chronic Qualifiers: Nicotine product type: cigarettes Substance use status: uncomplicated Qualified Code(s): F17.210 - Nicotine dependence, cigarettes, uncomplicated (5) Substance induced mood disorder Current Visit: Yes Status: Chronic (6) History of bipolar disorder Current Visit: Yes Status: Chronic (7) Insomnia Current Visit: Yes Status: Chronic Qualifiers: Insomnia type: unspecified Qualified Code(s): G47.00 - Insomnia, unspecified (8) Non-compliance Current Visit: Yes Status: Chronic - Initial Treatment Plan Initial Treatment Plan: Records ([facility]) revisited. Psychoeducation. Sleep hygiene. Detoxification in progress. Will resume lexapro 10 mg po daily + seroquel at the reduced doses of 50 mg po am + 100 mg po hs (due to risk of oversedation + falls). Side effects/benefits discussed with patient. Mr Barlow is in agreement with this plan of care. Granted consent (verbal) to Lan Analyst called [facility], at [phone], for verification of medications : pharmacy is closed.Observation.
--- NOTE | 2019-12-12 15:03 | EKG ---
Test Reason : Blood Pressure : / mmHG Vent. Rate : 055 BPM Atrial Rate : 055 BPM P-R Int : 162 ms QRS Dur : 096 ms QT Int : 464 ms P-R-T Axes : 076 030 016 degrees QTc Int : 443 ms SINUS BRADYCARDIA WITH SINUS ARRHYTHMIA EARLY REPOLARIZATION OTHERWISE NORMAL ECG WHEN COMPARED WITH ECG OF 05-AUG-2019 12:04, T WAVE INVERSION NO LONGER EVIDENT IN ANTERIOR LEADS T WAVE AMPLITUDE HAS DECREASED IN LATERAL LEADS Confirmed by MARYLOU JURADO MD ([id number]) on 12/12/2019 3:03:03 PM Referred By: DARLENE CLARKE Confirmed By:MARYLOU JURADO MD
[2019-12-12] MEDS: QUEtiapine FUMARATE 100 MG TABLET (FP) PO SCH (21:29)
[2019-12-12] MEDS: MELATONIN 5 MG TABLETS PO SCH (21:29)
[2019-12-12] MEDS: THIAMINE HCL 100 MG TABLET (FP) PO SCH (21:29)
[2019-12-13] MEDS: hydrOXYzine PAMOATE 25 MG CAPSULE (FP) PO SCH ×5 (06:38→21:40)
[2019-12-13] MEDS ORDERED: METHADONE HCL 10 MG TABLET (FOR DETOX USE ONLY) PO ONE (10:00)
[2019-12-13] MEDS: PRENATAL VITAMINS W/ FOLIC ACID TABLET (FP) PO SCH (10:15)
[2019-12-13] MEDS: QUEtiapine FUMARATE 25 MG TABLET PO SCH (10:16)
[2019-12-13] MEDS: METHOCARBAMOL 500 MG TABLET PO PRN (10:16)
[2019-12-13] MEDS: NICOTINE 14 MG/24 HOURS TOPICAL PATCH TD SCH (10:16)
[2019-12-13] MEDS: ESCITALOPRAM OXALATE 10 MG TABLET PO SCH (10:16)
--- NOTE | 2019-12-13 12:15 | PN ---
BHS COWS - Scale Resting Pulse: 1= [place] 81-100 Sweatin= Chills/Flushing Restless Observation: 0= Sits Still Pupil Size: 1= Pupils >than Normal Bone or Joint Aches: 1= Mild Discomfort Runny Nose/ Eye Tearin= None GI Upset > 30mins: 1= Stomach Cramp Tremor Observation of Outstretched Hands: 1= Tremor [place], Not Seen Yawning Observation: 0= None Anxiety or Irritability: 1=Feels Anxious/Irritable Goose Flesh Skin: 0=Smooth Skin COWS Score: 7 BHS Progress Note (SOAP) Subjective: 39 years old male admitted on 12/11/19 for opiate withdrawal sx management treating with methadone detox regiment Vital Signs - 24 hr 12/12/19 12/12/19 12/12/19 14:30 17:37 20:46 Temperature 99.8 F H 98.8 F 98.3 F Pulse Rate 69 56 L 66 Respiratory 18 18 18 Rate Blood Pressure 142/93 133/99 130/99 O2 Sat by Pulse 95 95 95 Oximetry (%) 12/13/19 12/13/19 05:51 08:36 Temperature 99.5 F 99.6 F Pulse Rate 52 L 95 H Respiratory 18 18 Rate Blood Pressure 144/86 144/79 O2 Sat by Pulse 98 Oximetry (%) tempt and bp elevation amlodipine 5 mg po daily ensure supplement 120 ml po tid history of hiv last ARV "two months" ago bactrim ds po daily resume discontinue isolation precaution encourage oral fluid Objective: 12/13/19 12:20 Laboratory Tests 12/12/19 12/12/19 12/12/19 07:20 07:20 07:20 WBC 4.5 RBC 4.60 Hgb 13.1 Hct 39.7 MCV 86.4 MCH 28.4 MCHC 32.9 RDW 13.4 Plt Count 260 MPV 7.5 Sodium 136 Potassium 3.4 L Chloride 100 Carbon Dioxide 29 Anion Gap 7 L BUN 7.5 Creatinine 1.0 Est GFR (CKD-EPI)AfAm 109.40 Est GFR (CKD-EPI)NonAf 94.39 Random Glucose 164 H Calcium 8.8 Total Bilirubin 0.4 AST 47 H ALT 33 Alkaline Phosphatase 116 Total Protein 7.6 Albumin 3.0 L Syphilis Serology Non-reactive glucose elevation bgm before breakfast fasting glucose 12/13/19 12:21 Assessment: 12/13/19 12:22 opiate withdrawal Plan: methadone regiment
[2019-12-13] MEDS: amLODIPine BESYLATE 5 MG TABLET (FP) PO SCH (12:57)
[2019-12-13] MEDS: SULFAMETHOXAZOLE/TRIMETHOPRIM 800MG/160MG D.S. TABLET PO SCH (12:57)
[2019-12-13] MEDS: QUEtiapine FUMARATE 100 MG TABLET (FP) PO SCH (21:40)
[2019-12-13] MEDS: THIAMINE HCL 100 MG TABLET (FP) PO SCH (21:40)
[2019-12-13] MEDS: MELATONIN 5 MG TABLETS PO SCH (21:40)
[2019-12-14] MEDS: hydrOXYzine PAMOATE 25 MG CAPSULE (FP) PO SCH ×5 (07:16→22:12)
[2019-12-14] MEDS ORDERED: METHADONE (DETOX) 10 MG, METHADONE (DETOX) 5 MG PO ONE (10:00)
[2019-12-14] MEDS ORDERED: METHADONE HCL 10 MG TABLET (FOR DETOX USE ONLY) ONE (10:06)
[2019-12-14] MEDS ORDERED: METHADONE HCL 5 MG TABLET (FOR DETOX USE ONLY) ONE (10:07)
[2019-12-14] MEDS: QUEtiapine FUMARATE 25 MG TABLET PO SCH (10:15)
[2019-12-14] MEDS: amLODIPine BESYLATE 5 MG TABLET (FP) PO SCH (10:15)
[2019-12-14] MEDS: SULFAMETHOXAZOLE/TRIMETHOPRIM 800MG/160MG D.S. TABLET PO SCH (10:15)
[2019-12-14] MEDS: ESCITALOPRAM OXALATE 10 MG TABLET PO SCH (10:15)
[2019-12-14] MEDS: NICOTINE 14 MG/24 HOURS TOPICAL PATCH TD SCH (10:16)
[2019-12-14] MEDS: PRENATAL VITAMINS W/ FOLIC ACID TABLET (FP) PO SCH (10:16)
[2019-12-14] MEDS: ONDANSETRON *ODT* 4 MG TABLET SL PRN ×2 (11:02→19:35)
--- NOTE | 2019-12-14 11:48 | PN ---
BHS COWS - Scale Resting Pulse: 0= [place] 80 or Below Sweatin= Chills/Flushing Restless Observation: 3= Extraneous Movement Pupil Size: 0= Normal to Room Light Bone or Joint Aches: 2= Severe Diffuse Aches Runny Nose/ Eye Tearin= None GI Upset > 30mins: 2= Nausea/Diarrhea (no diarrhea) Tremor Observation of Outstretched Hands: 2= Slight Tremor Visible Yawning Observation: 0= None Anxiety or Irritability: 2=Irritable/Anxious Goose Flesh Skin: 0=Smooth Skin COWS Score: 12 BHS Progress Note (SOAP) Subjective: c/o Anxiety/irritability sweats/chills Tremors("my nerves") nausea Objective: 12/14/19 11:46 Vital Signs - 24 hr 12/13/19 12/13/19 12/13/19 12:36 16:36 20:30 Temperature 99.3 F 98.6 F 98.4 F Pulse Rate 97 H 102 H 75 Respiratory 19 19 18 Rate Blood Pressure 128/86 136/87 149/89 O2 Sat by Pulse 98 98 Oximetry (%) 12/14/19 05:49 Temperature 98.7 F Pulse Rate 63 Respiratory 18 Rate Blood Pressure 122/66 O2 Sat by Pulse 98 Oximetry (%) Laboratory Tests 12/12/19 12/12/19 12/12/19 07:20 07:20 07:20 WBC 4.5 RBC 4.60 Hgb 13.1 Hct 39.7 MCV 86.4 MCH 28.4 MCHC 32.9 RDW 13.4 Plt Count 260 MPV 7.5 Sodium 136 Potassium 3.4 L Chloride 100 Carbon Dioxide 29 Anion Gap 7 L BUN 7.5 Creatinine 1.0 Est GFR (CKD-EPI)AfAm 109.40 Est GFR (CKD-EPI)NonAf 94.39 Random Glucose 164 H Calcium 8.8 Total Bilirubin 0.4 AST 47 H ALT 33 Alkaline Phosphatase 116 Total Protein 7.6 Albumin 3.0 L Syphilis Serology Non-reactive covid-19 result pending alert o x 3 nad seen in bed and communicated needs coherently. Assessment: 12/14/19 11:47 withdrawal sx borderline hypokalemia Plan: cont detox increase po fluids maintain safety kdur 20 meq po daily x 4 doses zofran odt as directed for n/v
[2019-12-14] MEDS: POTASSIUM CHLORIDE TABS 20 MEQ TABLET.ER (FP) PO SCH (12:00)
[2019-12-14] MEDS: MELATONIN 5 MG TABLETS PO SCH (22:12)
[2019-12-14] MEDS: QUEtiapine FUMARATE 100 MG TABLET (FP) PO SCH (22:12)
[2019-12-14] MEDS: THIAMINE HCL 100 MG TABLET (FP) PO SCH (22:12)
[2019-12-15 06:01] VITALS: BP 137/81; PULSE 60; TEMP 97.8
[2019-12-15] MEDS: hydrOXYzine PAMOATE 25 MG CAPSULE (FP) PO SCH ×2 (06:53→10:45)
[2019-12-15] MEDS: ONDANSETRON *ODT* 4 MG TABLET SL PRN (08:23)
--- NOTE | 2019-12-15 09:29 | PN ---
BHS COWS - Scale Resting Pulse: 0= [place] 80 or Below Sweatin= Chills/Flushing Restless Observation: 0= Sits Still Pupil Size: 0= Normal to Room Light Bone or Joint Aches: 2= Severe Diffuse Aches Runny Nose/ Eye Tearin= None GI Upset > 30mins: 2= Nausea/Diarrhea (no diarrhea) Tremor Observation of Outstretched Hands: 1= Tremor [place], Not Seen Yawning Observation: 0= None Anxiety or Irritability: 1=Feels Anxious/Irritable Goose Flesh Skin: 0=Smooth Skin COWS Score: 7 S Progress Note (SOAP) Subjective: c/o fatigue nausea-reports zofran odt given and effective. Objective: 12/15/19 09:28 Vital Signs - 24 hr 12/14/19 12/14/19 12/15/19 13:19 21:32 05:51 Temperature 98.4 F 98.7 F 97.3 F L Pulse Rate 90 70 58 L Respiratory 18 16 18 Rate Blood Pressure 138/94 130/99 104/58 L O2 Sat by Pulse 97 97 98 Oximetry (%) 12/15/19 06:00 Temperature 97.8 F Pulse Rate 60 Respiratory 18 Rate Blood Pressure 137/81 O2 Sat by Pulse 96 Oximetry (%) Laboratory Tests 12/12/19 12/12/19 12/12/19 07:20 07:20 07:20 WBC 4.5 RBC 4.60 Hgb 13.1 Hct 39.7 MCV 86.4 MCH 28.4 MCHC 32.9 RDW 13.4 Plt Count 260 MPV 7.5 Sodium 136 Potassium 3.4 L Chloride 100 Carbon Dioxide 29 Anion Gap 7 L BUN 7.5 Creatinine 1.0 Est GFR (CKD-EPI)AfAm 109.40 Est GFR (CKD-EPI)NonAf 94.39 Random Glucose 164 H Calcium 8.8 Total Bilirubin 0.4 AST 47 H ALT 33 Alkaline Phosphatase 116 Total Protein 7.6 Albumin 3.0 L Syphilis Serology Non-reactive alert o x 3 nad saw pt sitting on chair,communicating needs coherently. Assessment: 12/15/19 10:11 mild withdrawal sx resolving Plan: cont detox increase po fluids maintain safety
[2019-12-15] MEDS ORDERED: METHADONE HCL 10 MG TABLET (FOR DETOX USE ONLY) PO ONE (10:00)
[2019-12-15] MEDS ORDERED: POTASSIUM CHLORIDE TABS 20 MEQ TABLET.ER (FP) PO ONE (10:18)
[2019-12-15] MEDS: QUEtiapine FUMARATE 25 MG TABLET PO SCH (10:42)
[2019-12-15] MEDS: NICOTINE 14 MG/24 HOURS TOPICAL PATCH TD SCH (10:42)
[2019-12-15] MEDS: ESCITALOPRAM OXALATE 10 MG TABLET PO SCH (10:43)
[2019-12-15] MEDS: SULFAMETHOXAZOLE/TRIMETHOPRIM 800MG/160MG D.S. TABLET PO SCH (10:43)
[2019-12-15] MEDS: PRENATAL VITAMINS W/ FOLIC ACID TABLET (FP) PO SCH (10:43)
[2019-12-15] MEDS: amLODIPine BESYLATE 5 MG TABLET (FP) PO SCH (10:43)
[2019-12-15] MEDS: POTASSIUM CHLORIDE TABS 20 MEQ TABLET.ER (FP) PO SCH (10:57)
--- NOTE | 2019-12-15 12:37 | DS ---
[facility] Detox Discharge Summary Admission Date: 12/11/19 Discharge Date: 12/15/19 - History Present History: Cocaine Dependence, Opioid Dependence Additional Comments: Pt reports he has primary care with [facility] on [address] [place], [place] with Dr. Vikram Marroquin. Pt reports he is on Complera(pt did not mention on admission. Made known this information today upon discharge) and said he has not picked it up from pharmacy and plans to do so after discharge. Reports he saw his PCP last month. Denies being on Bactrim DS and declined Rx. Pertinent Past History: HIV+ - Physical Exam Results Vital Signs: Vital Signs Temperature 97.8 F 12/15/19 06:00 Pulse Rate 60 12/15/19 06:00 Respiratory Rate 18 12/15/19 06:00 Blood Pressure 137/81 12/15/19 06:00 O2 Sat by Pulse Oximetry (%) 96 12/15/19 06:00 Alert o x 3 nad oob ambulating with steady gait Active ROM all extremities, no edema, Skin intact Pertinent Admission Physical Exam Findings: Laboratory Tests 12/12/19 12/12/19 12/12/19 07:20 07:20 07:20 WBC 4.5 RBC 4.60 Hgb 13.1 Hct 39.7 MCV 86.4 MCH 28.4 MCHC 32.9 RDW 13.4 Plt Count 260 MPV 7.5 Sodium 136 Potassium 3.4 L Chloride 100 Carbon Dioxide 29 Anion Gap 7 L BUN 7.5 Creatinine 1.0 Est GFR (CKD-EPI)AfAm 109.40 Est GFR (CKD-EPI)NonAf 94.39 Random Glucose 164 H Fasting Glucose Calcium 8.8 Total Bilirubin 0.4 AST 47 H ALT 33 Alkaline Phosphatase 116 Total Protein 7.6 Albumin 3.0 L Syphilis Serology Non-reactive 12/15/19 07:50 WBC RBC Hgb Hct MCV MCH MCHC RDW Plt Count MPV Sodium Potassium Chloride Carbon Dioxide Anion Gap BUN Creatinine Est GFR (CKD-EPI)AfAm Est GFR (CKD-EPI)NonAf Random Glucose Fasting Glucose 127 H Calcium Total Bilirubin AST ALT Alkaline Phosphatase Total Protein Albumin Syphilis Serology - Treatment Hospital Course: Detox Protocol Followed, Detoxed Safely, Responded well, Discharged Condition Good (Medically stable), Rehab Referral Accepted Patient has Accepted a Rehab Referral to: [facility] - Medication Discharge Medications: Ambulatory Orders Quetiapine Fumarate [Seroquel -] 100 mg PO DAILY 05/08/19 Quetiapine Fumarate [Seroquel -] 200 mg PO HS 05/08/19 Citalopram Hydrobromide [Celexa -] 20 mg PO DAILY 12/11/19 - Diagnosis (1) Opioid dependence with withdrawal Status: Acute (2) Cocaine dependence, uncomplicated Status: Acute (3) HIV (human immunodeficiency virus infection) Status: Chronic (4) Hepatitis C Status: Chronic Qualifiers: Viral hepatitis chronicity: chronic Hepatic coma status: without hepatic coma Qualified Code(s): B18.2 - Chronic viral hepatitis C (5) Hypokalemia Status: Acute - AMA Did Patient Leave Against Medical Advice: No
[2019-12-15] MEDS ORDERED: POTASSIUM CHLORIDE TABS 20 MEQ TABLET.ER (FP) PO SCH (22:00)
[2019-12-16] MEDS ORDERED: METHADONE HCL 5 MG TABLET (FOR DETOX USE ONLY) PO ONE (06:00)
== END 2019-12-15 12:25 | disposition home or self-care (01) | DRG 897 ==
LOC: YASAS 11:01 → Y5N DETOX 15:28
PROVIDERS: ADMIT Allergy & Immunology; ATTEND Allergy & Immunology
PROC: HZ2ZZZZ Detoxification Services for Substance Abuse Treatment (ICD-10-PCS; principal; 2019-12-11)
DX: F11.23 Opioid dependence with withdrawal (principal); F14.20 Cocaine dependence, uncomplicated; F19.20 Other psychoactive substance dependence, uncomplicated; F17.210 Nicotine dependence, cigarettes, uncomplicated; F31.9 Bipolar disorder, unspecified; F19.24 Other psychoactive substance dependence with psychoactive substance-induced mood disorder; Z21 Asymptomatic human immunodeficiency virus [HIV] infection status; E87.6 Hypokalemia; B18.2 Chronic viral hepatitis C; G47.00 Insomnia, unspecified; R63.4 Abnormal weight loss; Z68.22 Body mass index [BMI] 22.0-22.9, adult; Z91.19 Patient's noncompliance with other medical treatment and regimen; Z91.14 Patient's other noncompliance with medication regimen; Z91.018 Allergy to other foods; Z59.0 Homelessness
CPT/HCPCS: 36415; 80053; 82947; 85027; 86780; 93005; 93010; Q0162; U0003

== ENCOUNTER 2020-04-05 10:18 | Inpatient (IN) | payer OTHER ==
[2020-04-05] MEDS ORDERED: MAGNESIUM HYDROX 2400MG/30ML ORAL SUSPENSION 30 ML CUP PO PRN (11:43)
[2020-04-05] MEDS ORDERED: cloNIDine HCL 0.1 MG TABLET PO PRN (11:43)
[2020-04-05] MEDS ORDERED: BISMUTH SUBSALICYLATE 262 MG/15 ML BTL PO PRN (11:43)
[2020-04-05] MEDS ORDERED: IBUPROFEN 400 MG TABLET (FP) PO PRN (11:43)
[2020-04-05] MEDS ORDERED: METHADONE HCL 10 MG TABLET (FOR DETOX USE ONLY) PO ONE (11:43)
[2020-04-05] MEDS ORDERED: ONDANSETRON *ODT* 4 MG TABLET SL PRN (11:43)
[2020-04-05] MEDS ORDERED: MAGNESIUM CITRATE 300 ML BOTTLE PO PRN (11:43)
[2020-04-05] MEDS ORDERED: ACETAMINOPHEN 325 MG TABLET (FP) PO PRN ×2 (11:43)
[2020-04-05] MEDS ORDERED: MAG HYDROX/AL HYDROX/SIMETH 30 ML UNIT-DOSE CUP PO PRN (11:43)
[2020-04-05] MEDS ORDERED: MENTHOL/PHENOL 1 EACH UD MM PRN (11:43)
[2020-04-05] MEDS ORDERED: NICOTINE POLACRILEX 2 MG GUM BUC PRN (11:43)
[2020-04-05 11:51] VITALS: BMI 22.1
[2020-04-05] MEDS: hydrOXYzine PAMOATE 25 MG CAPSULE (FP) PO SCH ×3 (13:33→22:29)
[2020-04-05 14:42] LABS: POTASSIUM 4.5 mmol/L (3.5-5.1)
[2020-04-05 14:47] LABS: CALCIUM 8.5 mg/dL (8.5-10.1)
[2020-04-05 14:48] LABS: ALBUMIN 3.2 g/dl (3.4-5.0); BLOOD UREA NITROGEN 14.8 mg/dL (7-18)
[2020-04-05 14:51] LABS: CREATININE 0.8 mg/dL (0.55-1.3)
[2020-04-05 14:52] LABS: BILIRUBIN,TOTAL 0.5 mg/dL (0.2-1)
[2020-04-05 14:56] LABS: HEMATOCRIT 36.2 % (35.4-49); MCH 28.3 pg (25.7-33.7); MCHC 33.1 g/dl (32.0-35.9); MEAN CELL VOLUME 85.5 fl (80-96); MEAN PLT VOLUME 7.4 fl (7.5-11.1); PLATELET COUNT 285 K/MM3 (134-434); RBC 4.24 M/mm3 (4.00-5.60); RDW 13.6 % (11.9-15.9)
[2020-04-05] MEDS: THIAMINE HCL 100 MG TABLET (FP) PO SCH (22:29)
[2020-04-05] MEDS: MELATONIN 5 MG TABLETS PO SCH (22:29)
[2020-04-06] MEDS: hydrOXYzine PAMOATE 25 MG CAPSULE (FP) PO SCH ×5 (07:22→22:31)
[2020-04-06] MEDS ORDERED: METHADONE HCL 10 MG TABLET (FOR DETOX USE ONLY) ONE (09:47)
[2020-04-06] MEDS ORDERED: METHADONE HCL 5 MG TABLET (FOR DETOX USE ONLY) ONE (09:47)
[2020-04-06] MEDS ORDERED: METHADONE (DETOX) 20 MG, METHADONE (DETOX) 5 MG PO ONE (10:00)
[2020-04-06] MEDS: PRENATAL VITAMINS W/ FOLIC ACID TABLET (FP) PO SCH (11:20)
[2020-04-06] MEDS: NICOTINE 7 MG/24 HOURS TOPICAL PATCH TD SCH (11:20)
[2020-04-06] MEDS ORDERED: CITALOPRAM HYDROBROMIDE 20 MG TABLET PO SCH (11:30)
[2020-04-06] MEDS: ESCITALOPRAM OXALATE 10 MG TABLET PO SCH (12:20)
[2020-04-06] MEDS: QUEtiapine FUMARATE 50 MG TABLET PO SCH (12:20)
[2020-04-06] MEDS: MELATONIN 5 MG TABLETS PO SCH (22:31)
[2020-04-06] MEDS: QUEtiapine FUMARATE 100 MG TABLET (FP) PO SCH (22:31)
[2020-04-06] MEDS: THIAMINE HCL 100 MG TABLET (FP) PO SCH (22:32)
[2020-04-07] MEDS: hydrOXYzine PAMOATE 25 MG CAPSULE (FP) PO SCH ×5 (06:45→22:07)
[2020-04-07] MEDS ORDERED: METHADONE HCL 10 MG TABLET (FOR DETOX USE ONLY) PO ONE (10:00)
[2020-04-07] MEDS: QUEtiapine FUMARATE 50 MG TABLET PO SCH (10:30)
[2020-04-07] MEDS: ESCITALOPRAM OXALATE 10 MG TABLET PO SCH (10:30)
[2020-04-07] MEDS: NICOTINE 7 MG/24 HOURS TOPICAL PATCH TD SCH (10:32)
[2020-04-07] MEDS: PRENATAL VITAMINS W/ FOLIC ACID TABLET (FP) PO SCH (10:33)
[2020-04-07 10:43] LABS: POTASSIUM 3.9 mmol/L (3.5-5.1)
[2020-04-07 10:47] LABS: CALCIUM 8.7 mg/dL (8.5-10.1)
[2020-04-07 10:48] LABS: BLOOD UREA NITROGEN 8.8 mg/dL (7-18)
[2020-04-07 10:51] LABS: CREATININE 1.1 mg/dL (0.55-1.3)
[2020-04-07] MEDS: QUEtiapine FUMARATE 100 MG TABLET (FP) PO SCH (22:07)
[2020-04-07] MEDS: MELATONIN 5 MG TABLETS PO SCH (22:07)
[2020-04-07] MEDS: THIAMINE HCL 100 MG TABLET (FP) PO SCH (22:08)
[2020-04-08] MEDS: hydrOXYzine PAMOATE 25 MG CAPSULE (FP) PO SCH ×3 (07:17→14:24)
[2020-04-08] MEDS ORDERED: METHADONE HCL 5 MG TABLET (FOR DETOX USE ONLY) ONE (09:47)
[2020-04-08] MEDS ORDERED: METHADONE HCL 10 MG TABLET (FOR DETOX USE ONLY) ONE (09:47)
[2020-04-08] MEDS ORDERED: METHADONE (DETOX) 10 MG, METHADONE (DETOX) 5 MG PO ONE (10:00)
[2020-04-08] MEDS: QUEtiapine FUMARATE 50 MG TABLET PO SCH (10:58)
[2020-04-08] MEDS: PRENATAL VITAMINS W/ FOLIC ACID TABLET (FP) PO SCH (10:58)
[2020-04-08] MEDS: ESCITALOPRAM OXALATE 10 MG TABLET PO SCH (10:58)
[2020-04-08] MEDS: NICOTINE 7 MG/24 HOURS TOPICAL PATCH TD SCH (10:59)
[2020-04-08] MEDS: METHOCARBAMOL 500 MG TABLET PO PRN (22:17)
[2020-04-08] MEDS: THIAMINE HCL 100 MG TABLET (FP) PO SCH (22:17)
[2020-04-08] MEDS: MELATONIN 5 MG TABLETS PO SCH (22:18)
[2020-04-08] MEDS: hydrOXYzine PAMOATE 25 MG CAPSULE (FP) PO PRN (22:18)
[2020-04-08] MEDS: QUEtiapine FUMARATE 100 MG TABLET (FP) PO SCH (22:18)
[2020-04-09] MEDS ORDERED: METHADONE HCL 10 MG TABLET (FOR DETOX USE ONLY) PO ONE (10:00)
[2020-04-09] MEDS: QUEtiapine FUMARATE 50 MG TABLET PO SCH (10:40)
[2020-04-09] MEDS: PRENATAL VITAMINS W/ FOLIC ACID TABLET (FP) PO SCH (10:40)
[2020-04-09] MEDS: ESCITALOPRAM OXALATE 10 MG TABLET PO SCH (10:40)
[2020-04-09] MEDS: NICOTINE 7 MG/24 HOURS TOPICAL PATCH TD SCH (10:41)
[2020-04-09] MEDS: METHOCARBAMOL 500 MG TABLET PO PRN (22:15)
[2020-04-09] MEDS: QUEtiapine FUMARATE 100 MG TABLET (FP) PO SCH (22:15)
[2020-04-09] MEDS: MELATONIN 5 MG TABLETS PO SCH (22:15)
[2020-04-09] MEDS: hydrOXYzine PAMOATE 25 MG CAPSULE (FP) PO PRN (22:15)
[2020-04-09] MEDS: THIAMINE HCL 100 MG TABLET (FP) PO SCH (22:15)
[2020-04-10] MEDS ORDERED: METHADONE HCL 5 MG TABLET (FOR DETOX USE ONLY) PO ONE (06:00)
[2020-04-10 09:46] VITALS: BP 128/90; PULSE 76; TEMP 98.2
[2020-04-10] MEDS: NICOTINE 7 MG/24 HOURS TOPICAL PATCH TD SCH (09:52)
[2020-04-10] MEDS: ESCITALOPRAM OXALATE 10 MG TABLET PO SCH (09:52)
[2020-04-10] MEDS: QUEtiapine FUMARATE 50 MG TABLET PO SCH (09:52)
[2020-04-10] MEDS: PRENATAL VITAMINS W/ FOLIC ACID TABLET (FP) PO SCH (09:53)
== END 2020-04-10 11:04 | disposition other institution (70) | DRG 897 ==
LOC: YASAS 10:18 → Y6N 11:58
PROVIDERS: ADMIT Allergy & Immunology; ATTEND Allergy & Immunology
PROC: HZ2ZZZZ Detoxification Services for Substance Abuse Treatment (ICD-10-PCS; principal; 2020-04-05)
DX: F11.23 Opioid dependence with withdrawal (principal); F14.20 Cocaine dependence, uncomplicated; F19.20 Other psychoactive substance dependence, uncomplicated; F19.282 Other psychoactive substance dependence with psychoactive substance-induced sleep disorder; F17.210 Nicotine dependence, cigarettes, uncomplicated; F31.9 Bipolar disorder, unspecified; Z21 Asymptomatic human immunodeficiency virus [HIV] infection status; B18.2 Chronic viral hepatitis C; R73.9 Hyperglycemia, unspecified; Z56.0 Unemployment, unspecified; Z91.013 Allergy to seafood
CPT/HCPCS: 36415; 80048; 80053; 82947; 85027; 86780; 93005; 93010; C9803; U0003

== ENCOUNTER 2020-04-10 11:10 | Inpatient (IN) | payer OTHER ==
[2020-04-10] MEDS ORDERED: MAGNESIUM HYDROX 2400MG/30ML ORAL SUSPENSION 30 ML CUP PO PRN (12:03)
[2020-04-10] MEDS ORDERED: MAG HYDROX/AL HYDROX/SIMETH 30 ML UNIT-DOSE CUP PO PRN (12:03)
[2020-04-10] MEDS ORDERED: guaiFENesin 200 MG/10 ML 10 ML UNIT-DOSE CUPS PO PRN (12:03)
[2020-04-10] MEDS ORDERED: IBUPROFEN 400 MG TABLET (FP) PO PRN (12:03)
[2020-04-10] MEDS ORDERED: MAGNESIUM CITRATE 300 ML BOTTLE PO PRN (12:03)
[2020-04-10] MEDS ORDERED: LOPERAMIDE HCL 2 MG CAPSULE PO PRN (12:03)
[2020-04-10] MEDS ORDERED: ACETAMINOPHEN 325 MG TABLET (FP) PO PRN (12:03)
[2020-04-10] MEDS ORDERED: P-EPHED 60MG/TRIPROLIDI 2.5MG TABLET PO PRN (12:03)
[2020-04-10] MEDS ORDERED: MENTHOL/PHENOL 1 EACH UD MM PRN (12:03)
[2020-04-10] MEDS: QUEtiapine FUMARATE 100 MG TABLET (FP) PO SCH (21:30)
[2020-04-10] MEDS: MELATONIN 5 MG TABLETS PO SCH (21:30)
[2020-04-10] MEDS: THIAMINE HCL 100 MG TABLET (FP) PO SCH (21:30)
[2020-04-10] MEDS: hydrOXYzine PAMOATE 25 MG CAPSULE (FP) PO PRN (21:31)
[2020-04-11] MEDS: PRENATAL VITAMINS W/ FOLIC ACID TABLET (FP) PO SCH (09:35)
[2020-04-11] MEDS: QUEtiapine FUMARATE 50 MG TABLET PO SCH (09:35)
[2020-04-11] MEDS: ESCITALOPRAM OXALATE 10 MG TABLET PO SCH (09:35)
[2020-04-11] MEDS: NICOTINE 7 MG/24 HOURS TOPICAL PATCH TD SCH (09:36)
[2020-04-11] MEDS: MELATONIN 5 MG TABLETS PO SCH (21:15)
[2020-04-11] MEDS: hydrOXYzine PAMOATE 25 MG CAPSULE (FP) PO PRN (21:15)
[2020-04-11] MEDS: QUEtiapine FUMARATE 100 MG TABLET (FP) PO SCH (21:15)
[2020-04-11] MEDS: THIAMINE HCL 100 MG TABLET (FP) PO SCH (21:15)
[2020-04-12] MEDS: NICOTINE 7 MG/24 HOURS TOPICAL PATCH TD SCH (09:47)
[2020-04-12] MEDS: PRENATAL VITAMINS W/ FOLIC ACID TABLET (FP) PO SCH (09:47)
[2020-04-12] MEDS: ESCITALOPRAM OXALATE 10 MG TABLET PO SCH (09:48)
[2020-04-12] MEDS: QUEtiapine FUMARATE 50 MG TABLET PO SCH (09:48)
[2020-04-12] MEDS: THIAMINE HCL 100 MG TABLET (FP) PO SCH (21:45)
[2020-04-12] MEDS: QUEtiapine FUMARATE 100 MG TABLET (FP) PO SCH (21:45)
[2020-04-12] MEDS: MELATONIN 5 MG TABLETS PO SCH (21:45)
[2020-04-12] MEDS: hydrOXYzine PAMOATE 25 MG CAPSULE (FP) PO PRN (21:47)
[2020-04-13] MEDS: ESCITALOPRAM OXALATE 10 MG TABLET PO SCH (09:54)
[2020-04-13] MEDS: PRENATAL VITAMINS W/ FOLIC ACID TABLET (FP) PO SCH (09:54)
[2020-04-13] MEDS: QUEtiapine FUMARATE 50 MG TABLET PO SCH (09:54)
[2020-04-13] MEDS: NICOTINE 7 MG/24 HOURS TOPICAL PATCH TD SCH (09:55)
[2020-04-13] MEDS ORDERED: ONDANSETRON *ODT* 4 MG TABLET SL PRN (16:26)
[2020-04-13] MEDS: THIAMINE HCL 100 MG TABLET (FP) PO SCH (21:13)
[2020-04-13] MEDS: QUEtiapine FUMARATE 100 MG TABLET (FP) PO SCH (21:13)
[2020-04-13] MEDS: hydrOXYzine PAMOATE 25 MG CAPSULE (FP) PO PRN (21:13)
[2020-04-13] MEDS: MELATONIN 5 MG TABLETS PO SCH (21:14)
[2020-04-14] MEDS: PRENATAL VITAMINS W/ FOLIC ACID TABLET (FP) PO SCH (10:01)
[2020-04-14] MEDS: QUEtiapine FUMARATE 50 MG TABLET PO SCH (10:01)
[2020-04-14] MEDS: NICOTINE 7 MG/24 HOURS TOPICAL PATCH TD SCH (10:01)
[2020-04-14] MEDS: ESCITALOPRAM OXALATE 10 MG TABLET PO SCH (10:01)
[2020-04-14] MEDS: METHOCARBAMOL 500 MG TABLET PO PRN (21:45)
[2020-04-14] MEDS: hydrOXYzine PAMOATE 25 MG CAPSULE (FP) PO PRN (21:45)
[2020-04-14] MEDS: MELATONIN 5 MG TABLETS PO SCH (21:45)
[2020-04-14] MEDS: THIAMINE HCL 100 MG TABLET (FP) PO SCH (21:45)
[2020-04-14] MEDS: QUEtiapine FUMARATE 100 MG TABLET (FP) PO SCH (21:45)
[2020-04-15] MEDS: hydrOXYzine PAMOATE 25 MG CAPSULE (FP) PO PRN (10:10)
[2020-04-15] MEDS: PRENATAL VITAMINS W/ FOLIC ACID TABLET (FP) PO SCH (10:10)
[2020-04-15] MEDS: QUEtiapine FUMARATE 50 MG TABLET PO SCH (10:10)
[2020-04-15] MEDS: METHOCARBAMOL 500 MG TABLET PO PRN ×2 (10:10→21:24)
[2020-04-15] MEDS: ESCITALOPRAM OXALATE 10 MG TABLET PO SCH (10:10)
[2020-04-15] MEDS: NICOTINE 7 MG/24 HOURS TOPICAL PATCH TD SCH (10:11)
[2020-04-15] MEDS: THIAMINE HCL 100 MG TABLET (FP) PO SCH (21:23)
[2020-04-15] MEDS: MELATONIN 5 MG TABLETS PO SCH (21:23)
[2020-04-15] MEDS: QUEtiapine FUMARATE 100 MG TABLET (FP) PO SCH (21:23)
[2020-04-16] MEDS: NICOTINE 7 MG/24 HOURS TOPICAL PATCH TD SCH (10:00)
[2020-04-16] MEDS: QUEtiapine FUMARATE 50 MG TABLET PO SCH (10:00)
[2020-04-16] MEDS: ESCITALOPRAM OXALATE 10 MG TABLET PO SCH (10:00)
[2020-04-16] MEDS: PRENATAL VITAMINS W/ FOLIC ACID TABLET (FP) PO SCH (10:00)
[2020-04-16] MEDS: THIAMINE HCL 100 MG TABLET (FP) PO SCH (21:43)
[2020-04-16] MEDS: QUEtiapine FUMARATE 100 MG TABLET (FP) PO SCH (21:43)
[2020-04-16] MEDS: METHOCARBAMOL 500 MG TABLET PO PRN (21:43)
[2020-04-16] MEDS: MELATONIN 5 MG TABLETS PO SCH (21:43)
[2020-04-17 07:02] VITALS: BP 138/108; PULSE 81; TEMP 98
[2020-04-17] MEDS: QUEtiapine FUMARATE 50 MG TABLET PO SCH (09:53)
[2020-04-17] MEDS: PRENATAL VITAMINS W/ FOLIC ACID TABLET (FP) PO SCH (09:53)
[2020-04-17] MEDS: ESCITALOPRAM OXALATE 10 MG TABLET PO SCH (09:53)
[2020-04-17] MEDS: NICOTINE 7 MG/24 HOURS TOPICAL PATCH TD SCH (09:54)
== END 2020-04-17 16:44 | disposition home or self-care (01) | DRG 895 ==
LOC: YASAS 11:10 → Y5N 11:11
PROVIDERS: ADMIT Allergy & Immunology; ATTEND Allergy & Immunology
PROC: HZ42ZZZ Group Counseling for Substance Abuse Treatment, Cognitive-Behavioral (ICD-10-PCS; principal; 2020-04-10)
DX: F11.20 Opioid dependence, uncomplicated (principal); F14.20 Cocaine dependence, uncomplicated; F17.210 Nicotine dependence, cigarettes, uncomplicated; F31.9 Bipolar disorder, unspecified; Z21 Asymptomatic human immunodeficiency virus [HIV] infection status; B18.2 Chronic viral hepatitis C; Z91.013 Allergy to seafood
CPT/HCPCS: Q0162

== ENCOUNTER 2020-05-31 13:02 | Inpatient (IN) | payer OTHER ==
[2020-05-31] MEDS ORDERED: METHOCARBAMOL 500 MG TABLET PO PRN (14:58)
[2020-05-31] MEDS ORDERED: MAGNESIUM HYDROX 2400MG/30ML ORAL SUSPENSION 30 ML CUP PO PRN (14:58)
[2020-05-31] MEDS ORDERED: ONDANSETRON *ODT* 4 MG TABLET SL PRN (14:58)
[2020-05-31] MEDS ORDERED: MAGNESIUM CITRATE 300 ML BOTTLE PO PRN (14:58)
[2020-05-31] MEDS ORDERED: MAG HYDROX/AL HYDROX/SIMETH 30 ML UNIT-DOSE CUP PO PRN (14:58)
[2020-05-31] MEDS ORDERED: MENTHOL/PHENOL 1 EACH UD MM PRN (14:58)
[2020-05-31] MEDS ORDERED: methaDONE HCL 10 MG TABLET (FOR DETOX USE ONLY) PO ONE (14:58)
[2020-05-31] MEDS ORDERED: NICOTINE POLACRILEX 2 MG GUM BUC PRN (14:58)
[2020-05-31] MEDS ORDERED: ACETAMINOPHEN 325 MG TABLET (FP) PO PRN ×2 (14:58)
[2020-05-31] MEDS ORDERED: IBUPROFEN 400 MG TABLET (FP) PO PRN (14:58)
[2020-05-31] MEDS ORDERED: BISMUTH SUBSALICYLATE 524 MG/30 ML PO PRN (14:58)
[2020-05-31] MEDS ORDERED: cloNIDine HCL 0.1 MG TABLET PO PRN (14:58)
[2020-05-31] MEDS: NICOTINE 14 MG/24 HOURS TOPICAL PATCH TD SCH (16:45)
[2020-05-31] MEDS: hydrOXYzine PAMOATE 25 MG CAPSULE (FP) PO SCH ×2 (17:24→22:24)
[2020-05-31] MEDS: MELATONIN 5 MG TABLETS PO SCH (22:24)
[2020-05-31] MEDS: THIAMINE HCL 100 MG TABLET (FP) PO SCH (22:24)
[2020-06-01] MEDS: hydrOXYzine PAMOATE 25 MG CAPSULE (FP) PO SCH ×5 (06:41→22:36)
[2020-06-01] MEDS ORDERED: methaDONE HCL 10 MG TABLET (FOR DETOX USE ONLY) ONE (09:01)
[2020-06-01] MEDS: PRENATAL VITAMINS W/ FOLIC ACID TABLET (FP) PO SCH (10:07)
[2020-06-01] MEDS: QUEtiapine FUMARATE 100 MG TABLET (FP) PO SCH (10:07)
[2020-06-01] MEDS: NICOTINE 14 MG/24 HOURS TOPICAL PATCH TD SCH (10:08)
[2020-06-01 11:58] LABS: HEMATOCRIT 36.7 % (35.4-49); HEMOGLOBIN 12.4 GM/dL (11.7-16.9); MCH 29.6 pg (25.7-33.7); MCHC 33.9 g/dl (32.0-35.9); MEAN CELL VOLUME 87.2 fl (80-96); MEAN PLT VOLUME 8.4 fl (7.5-11.1); PLATELET COUNT 255 K/MM3 (134-434); RBC 4.21 M/mm3 (4.00-5.60); RDW 14.1 % (11.9-15.9); WHITE BLOOD COUNT 4.5 K/mm3 (4.0-10.0)
[2020-06-01 12:04] LABS: ALBUMIN 3.4 g/dl (3.4-5.0); BLOOD UREA NITROGEN 17.7 mg/dL (7-18); CALCIUM 8.3 mg/dL (8.5-10.1)
[2020-06-01 12:07] LABS: CREATININE 1.1 mg/dL (0.55-1.3)
[2020-06-01 12:09] LABS: BILIRUBIN,TOTAL 0.7 mg/dL (0.2-1)
[2020-06-01] MEDS: CITALOPRAM HYDROBROMIDE 20 MG TABLET PO SCH (12:50)
[2020-06-01] MEDS: MELATONIN 5 MG TABLETS PO SCH (22:35)
[2020-06-01] MEDS: THIAMINE HCL 100 MG TABLET (FP) PO SCH (22:36)
[2020-06-02] MEDS: QUEtiapine FUMARATE 200 MG TABLET PO SCH ×2 (00:02→22:39)
[2020-06-02] MEDS: hydrOXYzine PAMOATE 25 MG CAPSULE (FP) PO SCH ×5 (05:25→22:39)
[2020-06-02] MEDS ORDERED: methaDONE HCL 10 MG TABLET (FOR DETOX USE ONLY) PO ONE (10:00)
[2020-06-02] MEDS: PRENATAL VITAMINS W/ FOLIC ACID TABLET (FP) PO SCH (10:14)
[2020-06-02] MEDS: NICOTINE 14 MG/24 HOURS TOPICAL PATCH TD SCH (10:14)
[2020-06-02] MEDS: QUEtiapine FUMARATE 100 MG TABLET (FP) PO SCH (10:14)
[2020-06-02] MEDS: CITALOPRAM HYDROBROMIDE 20 MG TABLET PO SCH (10:14)
[2020-06-02] MEDS ORDERED: FLU VACCINE (FLULAVAL) PF 60 MCG/0.5 ML SYRINGE 2020-2021 IM ONE (12:00)
[2020-06-02] MEDS: THIAMINE HCL 100 MG TABLET (FP) PO SCH (22:39)
[2020-06-02] MEDS: MELATONIN 5 MG TABLETS PO SCH (22:39)
[2020-06-03] MEDS: hydrOXYzine PAMOATE 25 MG CAPSULE (FP) PO SCH ×5 (06:19→22:20)
[2020-06-03] MEDS ORDERED: methaDONE HCL 10 MG TABLET (FOR DETOX USE ONLY) ONE (09:02)
[2020-06-03] MEDS: CITALOPRAM HYDROBROMIDE 20 MG TABLET PO SCH (09:22)
[2020-06-03] MEDS: QUEtiapine FUMARATE 100 MG TABLET (FP) PO SCH (09:23)
[2020-06-03] MEDS: PRENATAL VITAMINS W/ FOLIC ACID TABLET (FP) PO SCH (09:23)
[2020-06-03] MEDS: NICOTINE 14 MG/24 HOURS TOPICAL PATCH TD SCH (09:23)
[2020-06-03 12:02] LABS: ALBUMIN 3.3 g/dl (3.4-5.0); CALCIUM 8.7 mg/dL (8.5-10.1)
[2020-06-03 12:06] LABS: CREATININE 1.2 mg/dL (0.55-1.3)
[2020-06-03 12:07] LABS: BILIRUBIN,TOTAL 0.6 mg/dL (0.2-1); TOT PROT 8.3 g/dl (6.4-8.2)
[2020-06-03] MEDS: MELATONIN 5 MG TABLETS PO SCH (22:20)
[2020-06-03] MEDS: QUEtiapine FUMARATE 200 MG TABLET PO SCH (22:20)
[2020-06-03] MEDS: THIAMINE HCL 100 MG TABLET (FP) PO SCH (22:20)
[2020-06-04] MEDS: hydrOXYzine PAMOATE 25 MG CAPSULE (FP) PO SCH ×5 (07:00→22:11)
[2020-06-04] MEDS: QUEtiapine FUMARATE 100 MG TABLET (FP) PO SCH (09:19)
[2020-06-04] MEDS: NICOTINE 14 MG/24 HOURS TOPICAL PATCH TD SCH (09:19)
[2020-06-04] MEDS: CITALOPRAM HYDROBROMIDE 20 MG TABLET PO SCH (09:19)
[2020-06-04] MEDS: PRENATAL VITAMINS W/ FOLIC ACID TABLET (FP) PO SCH (09:19)
[2020-06-04] MEDS ORDERED: methaDONE HCL 10 MG TABLET (FOR DETOX USE ONLY) PO ONE (10:00)
[2020-06-04] MEDS: MELATONIN 5 MG TABLETS PO SCH (22:10)
[2020-06-04] MEDS: QUEtiapine FUMARATE 200 MG TABLET PO SCH (22:10)
[2020-06-04] MEDS: THIAMINE HCL 100 MG TABLET (FP) PO SCH (22:11)
[2020-06-05] MEDS: hydrOXYzine PAMOATE 25 MG CAPSULE (FP) PO SCH ×2 (05:05→09:25)
[2020-06-05 09:23] VITALS: BP 137/91; PULSE 70; TEMP 97.7
[2020-06-05] MEDS: PRENATAL VITAMINS W/ FOLIC ACID TABLET (FP) PO SCH (09:24)
[2020-06-05] MEDS: CITALOPRAM HYDROBROMIDE 20 MG TABLET PO SCH (09:24)
[2020-06-05] MEDS: NICOTINE 14 MG/24 HOURS TOPICAL PATCH TD SCH (09:24)
[2020-06-05] MEDS: QUEtiapine FUMARATE 100 MG TABLET (FP) PO SCH (09:24)
== END 2020-06-05 11:45 | disposition other institution (70) | DRG 897 ==
LOC: YASAS 13:02 → Y3N 15:21
PROVIDERS: ADMIT Allergy & Immunology; ATTEND Allergy & Immunology
PROC: HZ2ZZZZ Detoxification Services for Substance Abuse Treatment (ICD-10-PCS; principal; 2020-05-31)
DX: F11.23 Opioid dependence with withdrawal (principal); F14.20 Cocaine dependence, uncomplicated; F19.10 Other psychoactive substance abuse, uncomplicated; F17.210 Nicotine dependence, cigarettes, uncomplicated; F32.9 Major depressive disorder, single episode, unspecified; B18.2 Chronic viral hepatitis C; Z21 Asymptomatic human immunodeficiency virus [HIV] infection status; R03.0 Elevated blood-pressure reading, without diagnosis of hypertension; R73.9 Hyperglycemia, unspecified; R74.8 Abnormal levels of other serum enzymes; Z62.810 Personal history of physical and sexual abuse in childhood; Z86.59 Personal history of other mental and behavioral disorders; Z91.013 Allergy to seafood
CPT/HCPCS: 36415; 80053; 82947; 82962; 83036; 85027; 86780; C9803; U0003

== ENCOUNTER 2020-06-05 11:42 | Inpatient (IN) | payer OTHER ==
[2020-06-05] MEDS ORDERED: MAGNESIUM HYDROX 2400MG/30ML ORAL SUSPENSION 30 ML CUP PO PRN (12:44)
[2020-06-05] MEDS ORDERED: MAGNESIUM CITRATE 300 ML BOTTLE PO PRN (12:44)
[2020-06-05] MEDS ORDERED: P-EPHED 60MG/TRIPROLIDI 2.5MG TABLET PO PRN (12:44)
[2020-06-05] MEDS ORDERED: MAG HYDROX/AL HYDROX/SIMETH 30 ML UNIT-DOSE CUP PO PRN (12:44)
[2020-06-05] MEDS ORDERED: ACETAMINOPHEN 325 MG TABLET (FP) PO PRN (12:44)
[2020-06-05] MEDS ORDERED: MENTHOL/PHENOL 1 EACH UD MM PRN (12:44)
[2020-06-05] MEDS ORDERED: IBUPROFEN 400 MG TABLET (FP) PO PRN (12:44)
[2020-06-05] MEDS ORDERED: guaiFENesin 200 MG/10 ML 10 ML UNIT-DOSE CUPS PO PRN (12:44)
[2020-06-05] MEDS ORDERED: LOPERAMIDE HCL 2 MG CAPSULE PO PRN (12:44)
[2020-06-05] MEDS: amLODIPine BESYLATE 5 MG TABLET (FP) PO SCH (14:36)
[2020-06-05] MEDS: MELATONIN 5 MG TABLETS PO SCH (21:25)
[2020-06-05] MEDS: THIAMINE HCL 100 MG TABLET (FP) PO SCH (21:25)
[2020-06-05] MEDS: QUEtiapine FUMARATE 200 MG TABLET PO SCH (21:25)
[2020-06-06] MEDS: QUEtiapine FUMARATE 100 MG TABLET (FP) PO SCH (10:31)
[2020-06-06] MEDS: PRENATAL VITAMINS W/ FOLIC ACID TABLET (FP) PO SCH (10:31)
[2020-06-06] MEDS: amLODIPine BESYLATE 5 MG TABLET (FP) PO SCH (10:31)
[2020-06-06] MEDS: NICOTINE 14 MG/24 HOURS TOPICAL PATCH TD SCH (10:31)
[2020-06-06] MEDS: CITALOPRAM HYDROBROMIDE 20 MG TABLET PO SCH (10:31)
[2020-06-06] MEDS: MELATONIN 5 MG TABLETS PO SCH (21:10)
[2020-06-06] MEDS: THIAMINE HCL 100 MG TABLET (FP) PO SCH (21:10)
[2020-06-06] MEDS: QUEtiapine FUMARATE 200 MG TABLET PO SCH (21:11)
[2020-06-07] MEDS: QUEtiapine FUMARATE 100 MG TABLET (FP) PO SCH (10:07)
[2020-06-07] MEDS: NICOTINE 14 MG/24 HOURS TOPICAL PATCH TD SCH (10:07)
[2020-06-07] MEDS: CITALOPRAM HYDROBROMIDE 20 MG TABLET PO SCH (10:07)
[2020-06-07] MEDS: PRENATAL VITAMINS W/ FOLIC ACID TABLET (FP) PO SCH (10:07)
[2020-06-07] MEDS: amLODIPine BESYLATE 5 MG TABLET (FP) PO SCH (10:07)
[2020-06-07] MEDS: MELATONIN 5 MG TABLETS PO SCH (21:39)
[2020-06-07] MEDS: THIAMINE HCL 100 MG TABLET (FP) PO SCH (21:39)
[2020-06-07] MEDS: QUEtiapine FUMARATE 200 MG TABLET PO SCH (21:39)
[2020-06-08] MEDS: NICOTINE 14 MG/24 HOURS TOPICAL PATCH TD SCH (10:38)
[2020-06-08] MEDS: CITALOPRAM HYDROBROMIDE 20 MG TABLET PO SCH (10:38)
[2020-06-08] MEDS: QUEtiapine FUMARATE 100 MG TABLET (FP) PO SCH (10:38)
[2020-06-08] MEDS: amLODIPine BESYLATE 5 MG TABLET (FP) PO SCH (10:38)
[2020-06-08] MEDS: PRENATAL VITAMINS W/ FOLIC ACID TABLET (FP) PO SCH (10:39)
[2020-06-08] MEDS: QUEtiapine FUMARATE 200 MG TABLET PO SCH (21:06)
[2020-06-08] MEDS: THIAMINE HCL 100 MG TABLET (FP) PO SCH (21:06)
[2020-06-08] MEDS: MELATONIN 5 MG TABLETS PO SCH (21:06)
[2020-06-09] MEDS: QUEtiapine FUMARATE 100 MG TABLET (FP) PO SCH (09:39)
[2020-06-09] MEDS: amLODIPine BESYLATE 5 MG TABLET (FP) PO SCH (09:39)
[2020-06-09] MEDS: CITALOPRAM HYDROBROMIDE 20 MG TABLET PO SCH (09:40)
[2020-06-09] MEDS: PRENATAL VITAMINS W/ FOLIC ACID TABLET (FP) PO SCH (09:40)
[2020-06-09] MEDS: NICOTINE 14 MG/24 HOURS TOPICAL PATCH TD SCH (09:40)
[2020-06-09] MEDS: THIAMINE HCL 100 MG TABLET (FP) PO SCH (21:41)
[2020-06-09] MEDS: QUEtiapine FUMARATE 200 MG TABLET PO SCH (21:41)
[2020-06-09] MEDS: MELATONIN 5 MG TABLETS PO SCH (21:41)
[2020-06-10] MEDS: amLODIPine BESYLATE 5 MG TABLET (FP) PO SCH (10:05)
[2020-06-10] MEDS: QUEtiapine FUMARATE 100 MG TABLET (FP) PO SCH (10:05)
[2020-06-10] MEDS: PRENATAL VITAMINS W/ FOLIC ACID TABLET (FP) PO SCH (10:05)
[2020-06-10] MEDS: CITALOPRAM HYDROBROMIDE 20 MG TABLET PO SCH (10:05)
[2020-06-10] MEDS: NICOTINE 14 MG/24 HOURS TOPICAL PATCH TD SCH (10:05)
[2020-06-10] MEDS: THIAMINE HCL 100 MG TABLET (FP) PO SCH (21:10)
[2020-06-10] MEDS: QUEtiapine FUMARATE 200 MG TABLET PO SCH (21:11)
[2020-06-10] MEDS: MELATONIN 5 MG TABLETS PO SCH (21:11)
[2020-06-11] MEDS: CITALOPRAM HYDROBROMIDE 20 MG TABLET PO SCH (09:52)
[2020-06-11] MEDS: hydrOXYzine PAMOATE 25 MG CAPSULE (FP) PO PRN (09:52)
[2020-06-11] MEDS: QUEtiapine FUMARATE 100 MG TABLET (FP) PO SCH (09:52)
[2020-06-11] MEDS: PRENATAL VITAMINS W/ FOLIC ACID TABLET (FP) PO SCH (09:52)
[2020-06-11] MEDS: amLODIPine BESYLATE 5 MG TABLET (FP) PO SCH (09:52)
[2020-06-11] MEDS: NICOTINE 14 MG/24 HOURS TOPICAL PATCH TD SCH (09:52)
[2020-06-11] MEDS: QUEtiapine FUMARATE 200 MG TABLET PO SCH (21:34)
[2020-06-11] MEDS: THIAMINE HCL 100 MG TABLET (FP) PO SCH (21:34)
[2020-06-11] MEDS: MELATONIN 5 MG TABLETS PO SCH (21:34)
[2020-06-12] MEDS: amLODIPine BESYLATE 5 MG TABLET (FP) PO SCH (10:30)
[2020-06-12] MEDS: NICOTINE 14 MG/24 HOURS TOPICAL PATCH TD SCH (10:30)
[2020-06-12] MEDS: CITALOPRAM HYDROBROMIDE 20 MG TABLET PO SCH (10:30)
[2020-06-12] MEDS: PRENATAL VITAMINS W/ FOLIC ACID TABLET (FP) PO SCH (10:30)
[2020-06-12] MEDS: QUEtiapine FUMARATE 100 MG TABLET (FP) PO SCH (10:30)
[2020-06-12] MEDS: QUEtiapine FUMARATE 200 MG TABLET PO SCH (22:01)
[2020-06-12] MEDS: hydrOXYzine PAMOATE 25 MG CAPSULE (FP) PO PRN (22:01)
[2020-06-12] MEDS: THIAMINE HCL 100 MG TABLET (FP) PO SCH (22:02)
[2020-06-12] MEDS: MELATONIN 5 MG TABLETS PO SCH (22:02)
[2020-06-13] MEDS: PRENATAL VITAMINS W/ FOLIC ACID TABLET (FP) PO SCH (09:37)
[2020-06-13] MEDS: NICOTINE 14 MG/24 HOURS TOPICAL PATCH TD SCH (09:38)
[2020-06-13] MEDS: CITALOPRAM HYDROBROMIDE 20 MG TABLET PO SCH (09:38)
[2020-06-13] MEDS: amLODIPine BESYLATE 5 MG TABLET (FP) PO SCH (09:38)
[2020-06-13] MEDS: QUEtiapine FUMARATE 100 MG TABLET (FP) PO SCH (09:38)
[2020-06-13] MEDS: THIAMINE HCL 100 MG TABLET (FP) PO SCH (21:07)
[2020-06-13] MEDS: QUEtiapine FUMARATE 200 MG TABLET PO SCH (21:07)
[2020-06-13] MEDS: MELATONIN 5 MG TABLETS PO SCH (21:07)
[2020-06-14] MEDS: NICOTINE 14 MG/24 HOURS TOPICAL PATCH TD SCH (10:51)
[2020-06-14] MEDS: CITALOPRAM HYDROBROMIDE 20 MG TABLET PO SCH (10:51)
[2020-06-14] MEDS: PRENATAL VITAMINS W/ FOLIC ACID TABLET (FP) PO SCH (10:51)
[2020-06-14] MEDS: QUEtiapine FUMARATE 100 MG TABLET (FP) PO SCH (10:52)
[2020-06-14] MEDS: amLODIPine BESYLATE 5 MG TABLET (FP) PO SCH (10:52)
[2020-06-14] MEDS: THIAMINE HCL 100 MG TABLET (FP) PO SCH (21:30)
[2020-06-14] MEDS: MELATONIN 5 MG TABLETS PO SCH (21:30)
[2020-06-14] MEDS: QUEtiapine FUMARATE 200 MG TABLET PO SCH (21:30)
[2020-06-15] MEDS: CITALOPRAM HYDROBROMIDE 20 MG TABLET PO SCH (09:37)
[2020-06-15] MEDS: QUEtiapine FUMARATE 100 MG TABLET (FP) PO SCH (09:37)
[2020-06-15] MEDS: PRENATAL VITAMINS W/ FOLIC ACID TABLET (FP) PO SCH (09:37)
[2020-06-15] MEDS: NICOTINE 14 MG/24 HOURS TOPICAL PATCH TD SCH (09:37)
[2020-06-15] MEDS: amLODIPine BESYLATE 5 MG TABLET (FP) PO SCH (09:37)
[2020-06-15] MEDS: QUEtiapine FUMARATE 200 MG TABLET PO SCH (21:13)
[2020-06-15] MEDS: MELATONIN 5 MG TABLETS PO SCH (21:13)
[2020-06-15] MEDS: THIAMINE HCL 100 MG TABLET (FP) PO SCH (21:13)
[2020-06-16] MEDS: QUEtiapine FUMARATE 100 MG TABLET (FP) PO SCH (09:50)
[2020-06-16] MEDS: NICOTINE 14 MG/24 HOURS TOPICAL PATCH TD SCH (09:50)
[2020-06-16] MEDS: PRENATAL VITAMINS W/ FOLIC ACID TABLET (FP) PO SCH (09:50)
[2020-06-16] MEDS: amLODIPine BESYLATE 5 MG TABLET (FP) PO SCH (09:50)
[2020-06-16] MEDS: CITALOPRAM HYDROBROMIDE 20 MG TABLET PO SCH (09:50)
[2020-06-16] MEDS: QUEtiapine FUMARATE 200 MG TABLET PO SCH (21:45)
[2020-06-16] MEDS: THIAMINE HCL 100 MG TABLET (FP) PO SCH (21:45)
[2020-06-16] MEDS: MELATONIN 5 MG TABLETS PO SCH (21:45)
[2020-06-17] MEDS: CITALOPRAM HYDROBROMIDE 20 MG TABLET PO SCH (11:07)
[2020-06-17] MEDS: PRENATAL VITAMINS W/ FOLIC ACID TABLET (FP) PO SCH (11:08)
[2020-06-17] MEDS: amLODIPine BESYLATE 5 MG TABLET (FP) PO SCH (11:08)
[2020-06-17] MEDS: NICOTINE 14 MG/24 HOURS TOPICAL PATCH TD SCH (11:08)
[2020-06-17] MEDS: QUEtiapine FUMARATE 100 MG TABLET (FP) PO SCH (11:08)
[2020-06-17] MEDS: MELATONIN 5 MG TABLETS PO SCH (21:05)
[2020-06-17] MEDS: THIAMINE HCL 100 MG TABLET (FP) PO SCH (21:05)
[2020-06-17] MEDS: QUEtiapine FUMARATE 200 MG TABLET PO SCH (21:05)
[2020-06-18] MEDS: NICOTINE 14 MG/24 HOURS TOPICAL PATCH TD SCH (09:39)
[2020-06-18] MEDS: PRENATAL VITAMINS W/ FOLIC ACID TABLET (FP) PO SCH (09:39)
[2020-06-18] MEDS: amLODIPine BESYLATE 5 MG TABLET (FP) PO SCH (09:39)
[2020-06-18] MEDS: CITALOPRAM HYDROBROMIDE 20 MG TABLET PO SCH (09:40)
[2020-06-18] MEDS: QUEtiapine FUMARATE 100 MG TABLET (FP) PO SCH (09:40)
[2020-06-18] MEDS: THIAMINE HCL 100 MG TABLET (FP) PO SCH (21:35)
[2020-06-18] MEDS: QUEtiapine FUMARATE 200 MG TABLET PO SCH (21:35)
[2020-06-18] MEDS: MELATONIN 5 MG TABLETS PO SCH (21:35)
[2020-06-19] MEDS: NICOTINE 14 MG/24 HOURS TOPICAL PATCH TD SCH (09:33)
[2020-06-19] MEDS: PRENATAL VITAMINS W/ FOLIC ACID TABLET (FP) PO SCH (09:33)
[2020-06-19] MEDS: amLODIPine BESYLATE 5 MG TABLET (FP) PO SCH (09:33)
[2020-06-19] MEDS: CITALOPRAM HYDROBROMIDE 20 MG TABLET PO SCH (09:33)
[2020-06-19] MEDS: QUEtiapine FUMARATE 100 MG TABLET (FP) PO SCH (09:33)
[2020-06-19] MEDS: THIAMINE HCL 100 MG TABLET (FP) PO SCH (21:03)
[2020-06-19] MEDS: MELATONIN 5 MG TABLETS PO SCH (21:03)
[2020-06-19] MEDS: QUEtiapine FUMARATE 200 MG TABLET PO SCH (21:03)
[2020-06-20 06:39] VITALS: BP 130/93; PULSE 92; TEMP 97.3
[2020-06-20] MEDS: CITALOPRAM HYDROBROMIDE 20 MG TABLET PO SCH (09:22)
[2020-06-20] MEDS: QUEtiapine FUMARATE 100 MG TABLET (FP) PO SCH (09:22)
[2020-06-20] MEDS: PRENATAL VITAMINS W/ FOLIC ACID TABLET (FP) PO SCH (09:22)
[2020-06-20] MEDS: amLODIPine BESYLATE 5 MG TABLET (FP) PO SCH (09:22)
[2020-06-20] MEDS: NICOTINE 14 MG/24 HOURS TOPICAL PATCH TD SCH (09:23)
== END 2020-06-20 09:30 | disposition home or self-care (01) | DRG 895 ==
LOC: YASAS 11:42 → Y3W 11:43
PROVIDERS: ADMIT Allergy & Immunology; ATTEND Allergy & Immunology
PROC: HZ42ZZZ Group Counseling for Substance Abuse Treatment, Cognitive-Behavioral (ICD-10-PCS; principal; 2020-06-05)
DX: F11.20 Opioid dependence, uncomplicated (principal); F14.20 Cocaine dependence, uncomplicated; F19.20 Other psychoactive substance dependence, uncomplicated; F17.210 Nicotine dependence, cigarettes, uncomplicated; F31.9 Bipolar disorder, unspecified; Z21 Asymptomatic human immunodeficiency virus [HIV] infection status; B18.2 Chronic viral hepatitis C; Z91.19 Patient's noncompliance with other medical treatment and regimen; Z91.013 Allergy to seafood
CPT/HCPCS: 82962

== ENCOUNTER 2020-09-26 14:23 | Inpatient (IN) | payer OTHER ==
[2020-09-26 15:53] VITALS: BMI 23.4
[2020-09-26] MEDS ORDERED: NICOTINE POLACRILEX 2 MG GUM BUC PRN (18:06)
[2020-09-26] MEDS ORDERED: MAGNESIUM CITRATE 300 ML BOTTLE PO PRN (18:06)
[2020-09-26] MEDS ORDERED: METHOCARBAMOL 500 MG TABLET PO PRN (18:06)
[2020-09-26] MEDS ORDERED: BISMUTH SUBSALICYLATE 524 MG/30 ML UD PO PRN (18:06)
[2020-09-26] MEDS ORDERED: IBUPROFEN 400 MG TABLET (FP) PO PRN (18:06)
[2020-09-26] MEDS ORDERED: cloNIDine HCL 0.1 MG TABLET PO PRN (18:06)
[2020-09-26] MEDS ORDERED: NALOXONE (NARCAN) HCL 4 MG/0.1 ML SPRAY NS PRN (18:06)
[2020-09-26] MEDS ORDERED: ACETAMINOPHEN 325 MG TABLET (FP) PO PRN ×2 (18:06)
[2020-09-26] MEDS ORDERED: MENTHOL/PHENOL 1 EACH UD MM PRN (18:06)
[2020-09-26] MEDS ORDERED: MAG HYDROX/AL HYDROX/SIMETH 30 ML UNIT-DOSE CUP PO PRN (18:06)
[2020-09-26] MEDS ORDERED: LORazepam 2 MG TABLET PO ONE (18:06)
[2020-09-26] MEDS ORDERED: ONDANSETRON *ODT* 4 MG TABLET SL PRN (18:06)
[2020-09-26] MEDS ORDERED: METHADONE HCL 10 MG TABLET (FOR DETOX USE ONLY) PO ONE (18:06)
[2020-09-26] MEDS ORDERED: LORazepam 1 MG TABLET PO PRN (18:06)
[2020-09-26] MEDS ORDERED: MAGNESIUM HYDROX 2400MG/30ML ORAL SUSPENSION 30 ML CUP PO PRN (18:06)
[2020-09-26] MEDS: MELATONIN 5 MG TABLETS PO SCH (22:13)
[2020-09-26] MEDS: LORazepam 2 MG TABLET PO SCH (22:13)
[2020-09-26] MEDS: THIAMINE HCL 100 MG TABLET (FP) PO SCH (22:13)
[2020-09-26] MEDS: hydrOXYzine PAMOATE 25 MG CAPSULE (FP) PO SCH (22:13)
[2020-09-27] MEDS: LORazepam 2 MG TABLET PO SCH ×3 (06:09→18:55)
[2020-09-27] MEDS: hydrOXYzine PAMOATE 25 MG CAPSULE (FP) PO SCH ×4 (06:09→20:55)
[2020-09-27] MEDS ORDERED: METHADONE HCL 10 MG TABLET (FOR DETOX USE ONLY) ONE (09:02)
[2020-09-27] MEDS ORDERED: METHADONE HCL 5 MG TABLET (FOR DETOX USE ONLY) ONE (09:02)
[2020-09-27] MEDS ORDERED: METHADONE (DETOX) 20 MG, METHADONE (DETOX) 5 MG PO ONE (10:00)
[2020-09-27 10:05] LABS: HEMOGLOBIN 11.7 GM/dL (11.7-16.9); MCH 28.2 pg (25.7-33.7); MCHC 32.6 g/dl (32.0-35.9); MEAN CELL VOLUME 86.5 fl (80-96); MEAN PLT VOLUME 7.6 fl (7.5-11.1); PLATELET COUNT 281 K/MM3 (134-434); RBC 4.16 M/mm3 (4.00-5.60); RDW 14.5 % (11.9-15.9); WHITE BLOOD COUNT 5.3 K/mm3 (4.0-10.0)
[2020-09-27 10:21] LABS: ALBUMIN 2.6 g/dl (3.4-5.0)
[2020-09-27 10:22] LABS: BLOOD UREA NITROGEN 7.7 mg/dL (7-18)
[2020-09-27 10:25] LABS: CREATININE 0.9 mg/dL (0.55-1.3)
[2020-09-27 10:26] LABS: BILIRUBIN,TOTAL 0.5 mg/dL (0.2-1); TOT PROT 7.4 g/dl (6.4-8.2)
[2020-09-27] MEDS: PRENATAL VITAMINS W/ FOLIC ACID TABLET (FP) PO SCH (11:20)
[2020-09-27] MEDS: amLODIPine BESYLATE 5 MG TABLET (FP) PO SCH (11:21)
[2020-09-27] MEDS: NICOTINE 14 MG/24 HOURS TOPICAL PATCH TD SCH (11:22)
[2020-09-28] MEDS: LORazepam 2 MG TABLET PO SCH (00:36)
[2020-09-28] MEDS: hydrOXYzine PAMOATE 25 MG CAPSULE (FP) PO SCH ×6 (00:36→22:22)
[2020-09-28] MEDS: THIAMINE HCL 100 MG TABLET (FP) PO SCH ×2 (00:36→22:22)
[2020-09-28] MEDS: MELATONIN 5 MG TABLETS PO SCH ×2 (00:36→22:22)
[2020-09-28] MEDS: LORazepam 1 MG TABLET PO SCH ×4 (06:30→22:22)
[2020-09-28] MEDS ORDERED: METHADONE HCL 10 MG TABLET (FOR DETOX USE ONLY) PO ONE (10:00)
[2020-09-28] MEDS: amLODIPine BESYLATE 5 MG TABLET (FP) PO SCH (10:24)
[2020-09-28] MEDS: PRENATAL VITAMINS W/ FOLIC ACID TABLET (FP) PO SCH (10:24)
[2020-09-28] MEDS: NICOTINE 14 MG/24 HOURS TOPICAL PATCH TD SCH (10:24)
[2020-09-28] MEDS ORDERED: cloNIDine HCL 0.1 MG TABLET PO PRN (11:37)
[2020-09-29] MEDS ORDERED: LORazepam 0.5 MG TABLET PO PRN
[2020-09-29] MEDS: LORazepam 0.5 MG TABLET PO SCH ×2 (07:25→10:20)
[2020-09-29] MEDS: hydrOXYzine PAMOATE 25 MG CAPSULE (FP) PO SCH ×2 (07:25→10:19)
[2020-09-29 08:06] LABS: SARS-CoV-2 NAA Not Detected (Not Detected)
[2020-09-29] MEDS ORDERED: METHADONE HCL 5 MG TABLET (FOR DETOX USE ONLY) ONE (08:51)
[2020-09-29] MEDS ORDERED: METHADONE HCL 10 MG TABLET (FOR DETOX USE ONLY) ONE (08:51)
[2020-09-29 09:31] VITALS: BP 150/91; PULSE 91; TEMP 97.5
[2020-09-29] MEDS ORDERED: METHADONE (DETOX) 10 MG, METHADONE (DETOX) 5 MG PO ONE (10:00)
[2020-09-29] MEDS: amLODIPine BESYLATE 5 MG TABLET (FP) PO SCH (10:19)
[2020-09-29] MEDS: PRENATAL VITAMINS W/ FOLIC ACID TABLET (FP) PO SCH (10:19)
[2020-09-29] MEDS: NICOTINE 14 MG/24 HOURS TOPICAL PATCH TD SCH (10:19)
[2020-09-30] MEDS ORDERED: LORazepam 0.5 MG TABLET PO ONE (05:00)
[2020-09-30] MEDS ORDERED: METHADONE HCL 10 MG TABLET (FOR DETOX USE ONLY) PO ONE (10:00)
[2020-10-01] MEDS ORDERED: METHADONE HCL 5 MG TABLET (FOR DETOX USE ONLY) PO ONE (06:00)
== END 2020-09-29 11:36 | disposition left against medical advice (07) | DRG 894 ==
LOC: YASAS 14:23 → Y6N 18:22 → UNDOADMIN 18:22 → Y6N 19:13
PROVIDERS: ADMIT Allergy & Immunology; ATTEND Allergy & Immunology
PROC: HZ2ZZZZ Detoxification Services for Substance Abuse Treatment (ICD-10-PCS; principal; 2020-09-26)
DX: F11.23 Opioid dependence with withdrawal (principal); F14.20 Cocaine dependence, uncomplicated; F19.20 Other psychoactive substance dependence, uncomplicated; F13.230 Sedative, hypnotic or anxiolytic dependence with withdrawal, uncomplicated; F19.24 Other psychoactive substance dependence with psychoactive substance-induced mood disorder; F17.210 Nicotine dependence, cigarettes, uncomplicated; F31.9 Bipolar disorder, unspecified; Z21 Asymptomatic human immunodeficiency virus [HIV] infection status; I10 Essential (primary) hypertension; B18.2 Chronic viral hepatitis C; R94.5 Abnormal results of liver function studies
CPT/HCPCS: 36415; 80053; 82962; 85027; 86780; C9803; U0003; U0005

== ENCOUNTER 2020-12-07 14:34 | Inpatient (IN) | payer OTHER ==
[2020-12-07] MEDS ORDERED: P-EPHED 60MG/TRIPROLIDI 2.5MG TABLET PO PRN (20:02)
[2020-12-07] MEDS ORDERED: ACETAMINOPHEN 325 MG TABLET (FP) PO PRN ×2 (20:02)
[2020-12-07] MEDS ORDERED: NICOTINE POLACRILEX 2 MG GUM BUC PRN (20:02)
[2020-12-07] MEDS ORDERED: guaiFENesin 200 MG/10 ML 10 ML UNIT-DOSE CUPS PO PRN (20:02)
[2020-12-07] MEDS ORDERED: MAGNESIUM CITRATE 300 ML BOTTLE PO PRN (20:02)
[2020-12-07] MEDS ORDERED: NALOXONE (NARCAN) HCL 4 MG/0.1 ML SPRAY NS PRN (20:02)
[2020-12-07] MEDS ORDERED: IBUPROFEN 400 MG TABLET (FP) PO PRN (20:02)
[2020-12-07] MEDS ORDERED: NALOXONE HCL 0.4 MG/ML VIAL IM PRN (20:02)
[2020-12-07] MEDS ORDERED: MAGNESIUM HYDROX 2400MG/30ML ORAL SUSPENSION 30 ML CUP PO PRN (20:02)
[2020-12-07] MEDS ORDERED: MAG HYDROX/AL HYDROX/SIMETH 30 ML UNIT-DOSE CUP PO PRN (20:02)
[2020-12-07] MEDS ORDERED: DICYCLOMINE HCL 10 MG CAPSULE PO PRN (20:02)
[2020-12-07] MEDS ORDERED: MENTHOL/PHENOL 1 EACH UD MM PRN (20:02)
[2020-12-07] MEDS ORDERED: BISMUTH SUBSALICYLATE 524 MG/30 ML PO PRN (20:02)
[2020-12-07 23:00] VITALS: BMI 22.6
[2020-12-08] MEDS: THIAMINE HCL 100 MG TABLET (FP) PO SCH ×2 (00:10→23:05)
[2020-12-08] MEDS: MELATONIN 5 MG TABLETS PO SCH ×2 (00:10→23:05)
[2020-12-08] MEDS: hydrOXYzine PAMOATE 25 MG CAPSULE (FP) PO PRN (00:12)
[2020-12-08] MEDS: METHOCARBAMOL 500 MG TABLET PO PRN ×2 (00:13→12:20)
[2020-12-08] MEDS: PRENATAL VITAMINS W/ FOLIC ACID TABLET (FP) PO SCH (10:56)
[2020-12-08] MEDS: NICOTINE 14 MG/24 HOURS TOPICAL PATCH TD SCH (10:56)
[2020-12-08] MEDS ORDERED: methaDONE HCL 10 MG TABLET (FOR DETOX USE ONLY) PO ONE (11:51)
[2020-12-08] MEDS ORDERED: cloNIDine HCL 0.1 MG TABLET PO PRN (11:51)
[2020-12-08] MEDS: diazePAM 5 MG TABLET PO PRN (12:20)
[2020-12-08 13:27] LABS: HEMATOCRIT 37.7 % (35.4-49); HEMOGLOBIN 12.4 GM/dL (11.7-16.9); MCH 27.9 pg (25.7-33.7); MCHC 32.9 g/dl (32.0-35.9); MEAN CELL VOLUME 84.8 fl (80-96); MEAN PLT VOLUME 8.1 fl (7.5-11.1); PLATELET COUNT 257 10^3/uL (134-434); RBC 4.45 M/mm3 (4.00-5.60); RDW 14.8 % (11.9-15.9); WHITE BLOOD COUNT 5.1 K/mm3 (4.0-10.0)
[2020-12-08 13:41] LABS: CREATININE 0.9 mg/dL (0.55-1.3)
[2020-12-08 13:43] LABS: ALBUMIN 2.8 g/dl (3.4-5.0); BLOOD UREA NITROGEN 10.5 mg/dL (7-18); CALCIUM 8.3 mg/dL (8.5-10.1); TOT PROT 7.2 g/dl (6.4-8.2)
[2020-12-08 13:46] LABS: BILIRUBIN,TOTAL 0.3 mg/dL (0.2-1)
[2020-12-09] MEDS ORDERED: TRIMETHOBENZAMIDE HCL 200MG/2ML INJ IM ONE (08:14)
[2020-12-09] MEDS ORDERED: methaDONE HCL 10 MG TABLET (FOR DETOX USE ONLY) ONE (09:10)
[2020-12-09] MEDS: NICOTINE 14 MG/24 HOURS TOPICAL PATCH TD SCH (11:35)
[2020-12-09] MEDS: PRENATAL VITAMINS W/ FOLIC ACID TABLET (FP) PO SCH (11:35)
[2020-12-09] MEDS: diazePAM 5 MG TABLET PO PRN ×2 (13:04→22:53)
[2020-12-09] MEDS: hydrOXYzine PAMOATE 25 MG CAPSULE (FP) PO PRN ×2 (13:05→22:53)
[2020-12-09] MEDS: MELATONIN 5 MG TABLETS PO SCH (22:52)
[2020-12-09] MEDS: FAMOTIDINE 20 MG TABLET PO SCH (22:52)
[2020-12-09] MEDS: THIAMINE HCL 100 MG TABLET (FP) PO SCH (22:52)
[2020-12-10] MEDS: PRENATAL VITAMINS W/ FOLIC ACID TABLET (FP) PO SCH (09:41)
[2020-12-10] MEDS: FAMOTIDINE 20 MG TABLET PO SCH ×2 (09:41→23:44)
[2020-12-10] MEDS: NICOTINE 14 MG/24 HOURS TOPICAL PATCH TD SCH (09:41)
[2020-12-10] MEDS: METHOCARBAMOL 500 MG TABLET PO PRN (09:43)
[2020-12-10] MEDS: ONDANSETRON *ODT* 4 MG TABLET SL PRN (09:43)
[2020-12-10] MEDS ORDERED: methaDONE HCL 10 MG TABLET (FOR DETOX USE ONLY) PO ONE (10:00)
[2020-12-10] MEDS: THIAMINE HCL 100 MG TABLET (FP) PO SCH (23:44)
[2020-12-10] MEDS: hydrOXYzine PAMOATE 25 MG CAPSULE (FP) PO PRN (23:44)
[2020-12-10] MEDS: MELATONIN 5 MG TABLETS PO SCH (23:44)
[2020-12-11] MEDS ORDERED: methaDONE HCL 10 MG TABLET (FOR DETOX USE ONLY) ONE (08:59)
[2020-12-11] MEDS: NICOTINE 14 MG/24 HOURS TOPICAL PATCH TD SCH (10:55)
[2020-12-11] MEDS: ONDANSETRON *ODT* 4 MG TABLET SL PRN (10:58)
[2020-12-11] MEDS: FAMOTIDINE 20 MG TABLET PO SCH ×2 (10:58→22:32)
[2020-12-11] MEDS: METHOCARBAMOL 500 MG TABLET PO PRN ×2 (10:58→22:33)
[2020-12-11] MEDS: PRENATAL VITAMINS W/ FOLIC ACID TABLET (FP) PO SCH (10:59)
[2020-12-11] MEDS: amLODIPine BESYLATE 5 MG TABLET (FP) PO SCH (17:27)
[2020-12-11] MEDS: MELATONIN 5 MG TABLETS PO SCH (22:32)
[2020-12-11] MEDS: THIAMINE HCL 100 MG TABLET (FP) PO SCH (22:38)
[2020-12-12] MEDS: NICOTINE 14 MG/24 HOURS TOPICAL PATCH TD SCH (09:31)
[2020-12-12] MEDS: amLODIPine BESYLATE 5 MG TABLET (FP) PO SCH (09:32)
[2020-12-12] MEDS: FAMOTIDINE 20 MG TABLET PO SCH ×2 (09:32→22:05)
[2020-12-12] MEDS: PRENATAL VITAMINS W/ FOLIC ACID TABLET (FP) PO SCH (09:33)
[2020-12-12] MEDS ORDERED: methaDONE HCL 10 MG TABLET (FOR DETOX USE ONLY) PO ONE (10:00)
[2020-12-12] MEDS: MELATONIN 5 MG TABLETS PO SCH (22:05)
[2020-12-12] MEDS: THIAMINE HCL 100 MG TABLET (FP) PO SCH (22:06)
[2020-12-13 09:31] VITALS: BP 103/69; PULSE 74; TEMP 97.3
== END 2020-12-13 10:01 | disposition home or self-care (01) | DRG 897 ==
LOC: YASAS 14:34 → Y3N 23:15
PROVIDERS: ADMIT Allergy & Immunology; ATTEND Allergy & Immunology
PROC: HZ2ZZZZ Detoxification Services for Substance Abuse Treatment (ICD-10-PCS; principal; 2020-12-07)
DX: F11.23 Opioid dependence with withdrawal (principal); F13.20 Sedative, hypnotic or anxiolytic dependence, uncomplicated; F14.20 Cocaine dependence, uncomplicated; F12.20 Cannabis dependence, uncomplicated; F17.210 Nicotine dependence, cigarettes, uncomplicated; F19.24 Other psychoactive substance dependence with psychoactive substance-induced mood disorder; F31.9 Bipolar disorder, unspecified; Z21 Asymptomatic human immunodeficiency virus [HIV] infection status; E88.09 Other disorders of plasma-protein metabolism, not elsewhere classified; I10 Essential (primary) hypertension; Z86.19 Personal history of other infectious and parasitic diseases; Z91.19 Patient's noncompliance with other medical treatment and regimen; Z91.013 Allergy to seafood; Z56.0 Unemployment, unspecified; Z59.0 Homelessness
CPT/HCPCS: 36415; 80053; 82150; 83690; 85027; 86780; C9803; Q0162; U0003; U0005